=== PATIENT | female | born 1975 | race Caucasian/White ===

== ENCOUNTER 2022-04-03 09:58 | Outpatient (CLI) | payer OTHER, SELFPAY ==
--- OUTSIDE RECORDS SUMMARY | 2022-04-03 10:01 | XMS_ITS | Clinical Summary ---
:1975 Author Organization [facility] [place] [address] Care Team Providers Name Role Phone Pcp, No Primary Care Provider Unavailable Allergies Active Allergy Reactions Severity Noted Date Comments Azithromycin Rash 08/06/2009 Medications Medication Sig Dispensed Refills Start Date End Date Status drospirenone-ethinyl Take 1 tablet by 1 Package 0 10/26/2014 Active estradiol (GIANVI, mouth once 28,) 3-0.02 mg tablet daily. hyoscyamine Place 1 Tablet 30 tablet. 11 10/30/2020 A ctive sublingual (LEVSIN (0.125 mg) under SL) 0.125 mg the tongue every sublIndications: 4 hours if Ulcerative colitis needed. without complications, unspecified location (HC), Bloating balsalazide (COLAZAL) Take 1 Capsule 270 capsule. 3 09/16/2021 Active 750 mg (750 mg) by capsuleIndications: mouth 3 times Ulcerative colitis daily. without complications, unspecified location (HC), Bloating Active Problems Problem Noted Date Ulcerative colitis 08/06/2009 Overview: Colonoscopy 10/2012 normal repeat in 3 ye ars Colonoscopy 03/2018 minimal inflammation , repeat in 5 years Social History Tobacco Use Types Packs/Day Years Used Date Never Smoker Smokeless Tobacco: Never Used Tobacco Cessation: Counseling Given: Yes Alcohol Use Standard Drinks/Week Comments Not Asked 0 (1 standard drink = 0.6 oz pure alcoho l) Sex Assigned at Date Recorded Not on file Obstetrics History Last Filed Vital Signs Vital Sign Reading Time Taken Comments Blood Pressure 111/59 10/30/2020 3:53 PM CDT Pulse 78 10/30/2020 3:53 PM CDT Temperature 37 ??C (98.6 ??F) 09/09/2016 4:05 PM CDT Respiratory Rate 12 07/06/2012 3:32 PM MAT PACKER Oxygen Saturation 100% 10/30/2020 3:53 PM CDT Inhaled Oxygen Concentration - - Weight 55.9 kg (123 lb 3.2 oz) 10/30/2020 3:53 PM CDT Height 161.6 cm (5' 3.62) 09/22/2017 4:00 PM CDT Body Mass Index 21.4 09/22/2017 4:00 PM CDT Plan of Treatment Health Maintenance Due Date Last Done Comments COVID-19 vaccine series (#1) 04/19/1978 Tdap 1988 Depression screening for age 12+ 1989 Hepatitis C screening for age 0510/18/1995 18-79 Tetanus booster 1997 BMI (ht and wt on same day) for 09/22/2018 09/22/2017, 08/29, age 18+ 11/01/2015 Influenza for age 9-49 01/29/2022 Pap test for age 21-65 02/28/2022 02/28/2019, 02/28/2019, 02/09/2014, Additional history exists Colonoscopy through age 75 04/07/2023 04/07/2018, 8, 11/08/2012 Results Not on filefrom Last 3 Months Insurance Payer Benefit Plan / Subscriber ID Effective Dates Phone Addre ss Type Group [facility] [id number] 2019-Present [address] [address] [place] [address] [phone] [id number] (Work) Care Teams Insurance Sales Associate Relationship Specialty Start Date End Date Pcp, No PCP - General 09/05/15 .
--- NOTE | 2022-04-03 10:15 | CRLHL7_ITS ---
For Patients: As a result of the Century Cures Act, medical imaging exams and procedure reports are released immediately into your electronic medical record. You may view this report before your referring provider. If you have questions, please contact your health care provider. BILATERAL SCREENING MAMMOGRAM WITH COMPUTER-AIDED DETECTION AND TOMOSYNTHESIS TECHNIQUE: CC and MLO views were obtained. These mammographic images have been obtained using full-field digital technique. These mammographic images were interpreted with the benefit of computer-aided detection. Breast Tomosynthesis was used in this interpretation. COMPARISON FILM: 03/25/21, 03/07/20, 02/28/19. FINDINGS: The breasts are extremely dense, which lowers the sensitivity of mammography IMPRESSION: There is no radiographic evidence for malignancy. ASSESSMENT: BI-RADS Category 1: Negative RECOMMENDATION: Routine screening mammogram in 1 year. A lay language report of this examination will be provided to the patient. Ang Toledo M.D. Diagnostic Radiologist [email or web address] Transcribed: 2:43 p.m. BONNIE/Dictated by: Ang Toledo MD @ 04/03/2022 1:36:00 PM (Electronically Signed)
== END 2022-04-03 09:59 | disposition home or self-care (01) ==
LOC: MAMMO 09:59
PROVIDERS: Visit Provider Obstetrics & Gynecology
DX: Z12.31 Encounter for screening mammogram for malignant neoplasm of breast (principal); R92.2 Inconclusive mammogram
CPT/HCPCS: 77063; 77067

== ENCOUNTER 2023-04-12 10:25 | Outpatient (CLI) | payer OTHER, SELFPAY ==
--- NOTE | 2023-04-12 10:45 | CRLHL7_ITS ---
For Patients: As a result of the Cures Act, medical imaging exams and procedure reports are released immediately into your electronic medical record. You may view this report before your referring provider. If you have questions, please contact your health care provider. DIGITAL DIAGNOSTIC BILATERAL MAMMOGRAM USING TOMOSYNTHESIS AND COMPUTER-AIDED DETECTION RIGHT BREAST ULTRASOUND CLINICAL HISTORY: RIGHT breast lump. COMPARISON: 04/03/2022, 03/25/2021, 03/07/2020, 02/28/2019. TECHNIQUE: Digital BILATERAL mammogram in six projections. Tomosynthesis and CAD utilized. Real-time ultrasound imaging of RIGHT breast with imaging documentation. Scanning was performed by both the technologist and the radiologist. BREAST COMPOSITION: The breasts are extremely dense which may limit the sensitivity of mammography. FINDINGS: 3D CC/MLO BILATERAL mammogram submitted along with BILATERAL XCCL images. Asymmetric density is present within the lateral RIGHT breast amongst extremely dense breast tissue. No suspicious calcifications bilaterally. Targeted RIGHT breast ultrasound performed at 9 o`clock 3 cm from the nipple. There is a somewhat ill-defined lobular mass with heterogeneous hypoechoic echotexture measuring approximately 3.5 x 2.8 cm. No discernible abnormal lymph nodes in the axilla. IMPRESSION: Suspicious 3.5 cm palpable mass RIGHT breast. RECOMMENDATIONS: Ultrasound-guided core needle biopsy. Results and recommendations discussed with the patient. BI-RADS Category 5: Highly Suggestive of Malignancy A lay language report of this examination will be provided to the patient. Dictated by Ang Toledo MD @ 04/12/2023 12:40:26 PM patoj/Dictated by: Ang Toledo MD @ 04/12/2023 12:40:00 PM (Electronically Signed)
--- NOTE | 2023-04-12 11:15 | CRLHL7_ITS ---
For Patients: As a result of the Cures Act, medical imaging exams and procedure reports are released immediately into your electronic medical record. You may view this report before your referring provider. If you have questions, please contact your health care provider. PLEASE SEE DIGITAL DIAGNOSTIC BILATERAL MAMMOGRAM PERFORMED SAME DAY CRL:mamta oleary/Dictated by: Ang Toledo MD @ 04/12/2023 12:40:00 PM (Electronically Signed)
== END 2023-04-12 10:26 | disposition home or self-care (01) ==
LOC: MAMMO 10:26
PROVIDERS: Visit Provider Obstetrics & Gynecology
DX: N63.10 Unspecified lump in the right breast, unspecified quadrant (principal)
CPT/HCPCS: 76642; 77065; 77066; G0279

== ENCOUNTER 2023-04-15 10:53 | Outpatient (CLI) | payer OTHER, SELFPAY ==
--- NOTE | 2023-04-15 11:15 | CRLHL7_ITS ---
For Patients: As a result of the Century Cures Act, medical imaging exams and procedure reports are released immediately into your electronic medical record. You may view this report before your referring provider. If you have questions, please contact your health care provider. ULTRASOUND-GUIDED BREAST BIOPSY AND POST-BIOPSY DIGITAL MAMMOGRAM FOR BIOPSY MARKER PLACEMENT CLINICAL HISTORY: Suspicious palpable mass. COMPARISON STUDIES: 04/12/2023. TECHNIQUE: Real-time ultrasound with image documentation was used for targeting the breast lesion. Core biopsy specimens were obtained using an automated gun with a 14-gauge biopsy needle. Post-biopsy CC and ML digital mammograms were obtained to document position of the biopsy marker. CONSENT and TIME OUT: The procedure, risks, and alternatives were explained to the patient and a consent was signed. [place] Protocol was followed including pre-procedure verification that relevant information/documentation was available, reviewed and properly matched to the patient; consent accurate and complete; and equipment and supplies available. Time Out was conducted just prior to starting procedure to verify the four required elements: patient identity, correct side/site marked (if applicable), procedure, relevant images/results properly labeled and displayed (if applicable). PROCEDURE: The patient was positioned supine on the ultrasound table. The breast was prepped with ChloraPrep. 6 cc of 1 percent lidocaine used for local anesthesia. Core samples were obtained. A sterile metal biopsy clip was placed percutaneously to norbert the lesion position within the breast. The specimens were placed in 10% formalin and sent to the pathology department. Pressure was held on the biopsy site until all bleeding subsided. The skin incision was closed with Steri-Strips. An ice pack was positioned over the biopsy site. Post-biopsy instructions were reviewed with the patient, and a written copy was given to her. LATERALITY: RIGHT breast. LESION: Large ill-defined hypoechoic and shadowing mass with irregular margins measuring approximately 3.5 cm at 9 o`clock 3 cm from the nipple. SUSPICION FOR MALIGNANCY: High. NUMBER OF SAMPLES: 5. BIOPSY CLIP SHAPE: Oval. PROXIMITY OF CLIP TO TARGET: Within the lesion. IMPRESSION: Ultrasound-guided breast biopsy. When the pathology report is available, an addendum to this report will be made. ACR not applicable Dictated by Ang Toledo MD @ 04/15/2023 11:56:02 AM jj/Dictated by: Ang Toledo MD @ 04/15/2023 11:56:00 AM ADDENDUM: Pathology consistent with invasive lobular carcinoma. This is concordant. Pretreatment breast MRI recommended. Appropriate action recommended. Dictated by: Ang Toledo MD @04/20/2023 9:19:29 AM / CRL:mamta (Electronically Signed)
--- NOTE | 2023-04-15 12:00 | CRLHL7_ITS ---
For Patients: As a result of the Century Cures Act, medical imaging exams and procedure reports are released immediately into your electronic medical record. You may view this report before your referring provider. If you have questions, please contact your health care provider. PLEASE SEE ULTRASOUND-GUIDED RIGHT BREAST BIOPSY PERFORMED SAME DAY CRL:mamta oleary/Dictated by: Ang Toledo MD @ 04/15/2023 11:56:00 AM (Electronically Signed)
== END 2023-04-15 10:54 | disposition home or self-care (01) ==
LOC: US 10:53
PROVIDERS: Visit Provider Obstetrics & Gynecology
DX: N63.10 Unspecified lump in the right breast, unspecified quadrant (principal); C50.911 Malignant neoplasm of unspecified site of right female breast
CPT/HCPCS: 19083; 77065; 88305; 88341; 88342; 88360; 88361; A4648; A4649

== ENCOUNTER 2023-04-26 16:38 | Outpatient (CLI) | payer OTHER, SELFPAY ==
--- NOTE | 2023-04-26 17:00 | CRLHL7_ITS ---
For Patients: As a result of the 21st Century Cures Act, medical imaging exams and procedure reports are released immediately into your electronic medical record. You may view this report before your referring provider. If you have questions, please contact your health care provider. BILATERAL BREAST MRI WITHOUT AND WITH GADOLINIUM, 04/26/2023 CLINICAL HISTORY: 47-year-old female with recently diagnosed RIGHT breast cancer. INDICATION FOR BREAST MRI: Staging of newly diagnosed breast cancer and screening of contralateral breast. Regional lymph nodes will also be assessed. COMPARISON STUDIES: Mammogram 04/12/2023, 04/03/2022, RIGHT breast ultrasound 04/12/2023, RIGHT breast ultrasound-guided biopsy and postprocedure mammogram 04/15/2023. CONTRAST: 11 cc of Dotarem. TECHNIQUE: The patient was positioned prone using a breast coil. Multiple imaging sequences were obtained using 1-1.5 mm thick slices with no gap. The image sequences include T2-weighted STIR in the axial plane, T1-weighted nonfat-saturated gradient echo in the axial plane, pre- and post-contrast T1-weighted FLASH 3D with fat suppression in the axial plane, and T1-weighted FLASH high resolution 3D with fat suppression in the sagittal plane. Image post-processing was performed on a [employer] workstation. Complex 3D rendering including maximum intensity projections (MIPS) and volumetric renderings were obtained to optimize visualization of the extent of pathology and relationship to the nipple, skin, and chest wall. This aids in determining feasibility of breast conservation surgery. Subtraction, multiplanar reconstruction, mean curve determination, and angiogenesis mapping were also performed. The study was technically adequate. FINDINGS: Amount of Fibroglandular Tissue: Heterogeneous fibroglandular tissue. Breast Background Enhancement: Moderate. RIGHT Breast: There is heterogeneous non-mass enhancement in a segmental distribution within the upper outer quadrant of the RIGHT breast spanning clockwise from 8 o`clock to 12 o`clock, anterior to posterior depth and measuring 4.0 x 4.0 x 3.0 cm. Artifact from a biopsy marker clip is seen at the lateral aspect of the enhancement. This is consistent with the site of biopsy-proven malignancy. The extent of which is greater on MRI than was measured on ultrasound. There appears to be overlying skin dimpling. At 11-12 o`clock, posterior depth, approximately 6.5 cm from the nipple there is an irregular mass with irregular margins and heterogeneous internal enhancement which demonstrates fast initial enhancement with washout measuring 1.4 x 0.8 x 1.3 cm. This is located approximately 2 cm superior and medial to the site of biopsy-proven malignancy. LEFT Breast: At 2 o`clock, middle depth, approximately 2.5 cm from the nipple there is an oval, enhancing mass with nonenhancing internal septations measuring 0.6 x 0.5 x 0.7 cm. This demonstrates fast initial enhancement with washout. Lymph Nodes: No suspicious adenopathy. IMPRESSIONS AND RECOMMENDATIONS: RIGHT Breast: 1. Non-mass enhancement in a segmental distribution within the upper outer quadrant, measuring up to 4.0 cm on MRI is consistent with the biopsy-proven malignancy. 2. Mass at 11-12 o`clock, posterior depth, measuring up to 1.4 cm on MRI is suspicious. Recommend targeted ultrasound and ultrasound-guided biopsy. If there is no sonographic correlate an MRI-guided biopsy is recommended. 3. No suspicious adenopathy. LEFT Breast: 1. Mass at 2 o`clock, middle depth, measuring up to 0.7 cm on MRI is suspicious. Recommend targeted ultrasound and ultrasound-guided biopsy. If there is no sonographic correlate an MRI-guided biopsy is recommended. 2. No adenopathy. BI-RADS Category 4: Suspicious Dictated by Gema Kwong MD @ 04/28/2023 4:16:32 PM /Dictated by: Gema Kwong MD @ 04/28/2023 4:16:00 PM (Electronically Signed)
== END 2023-04-26 16:39 | disposition home or self-care (01) ==
LOC: MRI 16:38
PROVIDERS: Visit Provider Surgery
DX: C50.911 Malignant neoplasm of unspecified site of right female breast (principal)
CPT/HCPCS: 77049; A9575

== ENCOUNTER 2023-05-06 11:01 | Outpatient (CLI) | payer OTHER, SELFPAY ==
--- NOTE | 2023-05-06 | CRLHL7_ITS ---
For Patients: As a result of the Century Cures Act, medical imaging exams and procedure reports are released immediately into your electronic medical record. You may view this report before your referring provider. If you have questions, please contact your health care provider. LEFT BREAST ULTRASOUND CLINICAL HISTORY: RIGHT breast cancer. Focal nodular uptake on MRI, LEFT breast. COMPARISON: Breast MRI 04/26/2023. TECHNIQUE: Real-time ultrasound imaging of LEFT breast with imaging documentation. Scanning was performed by both the technologist and the radiologist. FINDINGS: Careful targeted ultrasound of the LEFT breast 2 o`clock 2.5 cm from the nipple performed. A few scattered benign simple anechoic cysts are present within the LEFT breast along with dense fibroglandular tissue. No definitive sonographic abnormality is present within the dense parenchyma to correspond with the MRI finding. IMPRESSION: No sonographic abnormality detected to correspond with the MRI. RECOMMENDATIONS: MRI-guided biopsy LEFT breast. Results and recommendations were discussed with the patient at the time of the exam. BI-RADS Category 4: Suspicious A lay language report of this examination will be provided to the patient. Dictated by Ang Toledo MD @ 05/06/2023 11:56:28 AM jj/Dictated by: Ang Toledo MD @ 05/06/2023 11:56:00 AM (Electronically Signed)
== END 2023-05-06 11:02 | disposition home or self-care (01) ==
LOC: US 11:02
PROVIDERS: Visit Provider Surgery
DX: R92.8 Other abnormal and inconclusive findings on diagnostic imaging of breast (principal); N60.02 Solitary cyst of left breast; C50.911 Malignant neoplasm of unspecified site of right female breast
CPT/HCPCS: 76642

== ENCOUNTER 2023-05-11 13:41 | Outpatient (CLI) | payer OTHER, SELFPAY | END 2023-05-11 13:42 | disposition home or self-care (01) | LOC: NFLDREF 13:42 | PROVIDERS: Visit Provider Family Medicine | DX: Z01.818 Encounter for other preprocedural examination (principal) | CPT/HCPCS: 80048 ==

== ENCOUNTER 2023-05-27 09:27 | Day surgery (SDC) | payer OTHER, SELFPAY ==
[2023-05-27] VITALS (19 sets, daily range): BP systolic 96–128; BP diastolic 50–82; PULSE 71–116; RESP 12–16; TEMP 35.7–36.8; O2SAT 94–100; BMI 22.5
[2023-05-27] MEDS: LACTATED RINGERS 1000 ML 1,000 ML 100 ML IV ×2 (09:45→13:03)
[2023-05-27] MEDS: SODIUM CHLORIDE 0.9 % (FLUSH) 10 ML SYRINGE IVF (09:45)
[2023-05-27 10:02] LABS: Ur HCG Qualitative* Negative (Negative)
--- NOTE | 2023-05-27 11:00 | CRLHL7_ITS ---
For Patients: As a result of the Century Cures Act, medical imaging exams and procedure reports are released immediately into your electronic medical record. You may view this report before your referring provider. If you have questions, please contact your health care provider. SENTINEL LYMPH NODE LOCALIZATION INJECTION CLINICAL HISTORY: Breast cancer LATERALITY: Right breast TECHNIQUE: With the patient supine, the periareolar right breast was cleansed with alcohol. 1cc of 1% buffered lidocaine was injected intradermal in the upper outer periareolar region of the right breast with a 25-gauge needle. Next, 0.98 millicuries of technetium Tc 99m filtered sulfur colloid) in a volume of 1 cc was injected intradermal in the upper outer periareolar breast with a 25-gauge needle. The patient tolerated the procedure well and there were no immediate complications. IMPRESSION: Injection for sentinel lymph node of the right breast. Dictated by Ang Toledo MD @ 05/27/2023 4:42:06 PM (Electronically Signed)
--- NOTE | 2023-05-27 11:46 | W.PM.H&PU ---
History & Physical Update History & Physical Update H&P Reviewed and patient assessed: No changes noted
[2023-05-27] MEDS: CEFAZOLIN 2 GM INJ IVP (12:30)
[2023-05-27] MEDS: ISOSULFAN BLUE 5 ML VIAL INJECTION (12:30)
--- NOTE | 2023-05-27 12:30 | W.PM.NB ---
Nerve Block Nerve Block Time Seen by Provider: 12:19 Date Seen: 05/27/23 Type of block requested by surgeon for post-operative analgesia: intercostal and intercostal add on Side: bilateral Time out performed: Yes Verification of patient name: Yes Verification of date of : Yes Site marking: site marked Name of person performing procedure: Prasanna Continuous monitoring Was continuous monitoring of O2 sat, B/P, monitor car operator, recorded every 15 minutes?: Yes Procedure Checklist: sterile prep, needles and gloves Ultrasound guided. Images saved: Yes Medications given in 5ml increments after negative aspiration: Marcaine %: 0.25 mL: 20 Needle gauge: 20 and Exparel mL: 20 Patient tolerated procedure well: Yes Block Charges Block Charge (with Pro Fee): Intercostal Nerve Block Use of Ultrasound Machine for Block: Yes- US Guidance/pain block
--- NOTE | 2023-05-27 12:32 | W.ANESCHARGE ---
Anesthesia Charges Start Date/Time Anesthesia Start Date: 05/27/23 Anesthesia Start Time: 12:11 Stop Date/Time Anesthesia Stop Date: 05/27/23 Anesthesia Stop Time: 15:53
--- NOTE | 2023-05-27 13:30 | CRLHL7_ITS ---
For Patients: As a result of the Century Cures Act, medical imaging exams and procedure reports are released immediately into your electronic medical record. You may view this report before your referring provider. If you have questions, please contact your health care provider. CLINICAL HISTORY: Breast cancer COMPARISON: 04/12/2023 FINDINGS: Two-views left breast specimen submitted. Entire mastectomy specimen is present. Biopsy clip noted. IMPRESSION: Left mastectomy specimen. ACR not applicable. Dictated by Ang Toledo MD @ 05/28/2023 12:21:11 PM (Electronically Signed)
--- NOTE | 2023-05-27 13:44 | W.ANESCHARGE ---
Anesthesia Charges Start Date/Time Anesthesia Start Date: 05/27/23 Anesthesia Start Time: 12:11 Stop Date/Time Anesthesia Stop Date: 05/27/23 Anesthesia Stop Time: 15:53
--- NOTE | 2023-05-27 14:33 | CRLHL7_ITS ---
For Patients: As a result of the Century Cures Act, medical imaging exams and procedure reports are released immediately into your electronic medical record. You may view this report before your referring provider. If you have questions, please contact your health care provider. CLINICAL HISTORY: Breast cancer COMPARISON: 04/12/2023 FINDINGS: Two views right mastectomy specimen submitted. Biopsy clip is present. IMPRESSION: Right mastectomy specimen films. Dictated by Ang Toledo MD @ 05/28/2023 12:22:44 PM (Electronically Signed)
[2023-05-27] MEDS: BUPIVACAINE 0.25% 30 ML INJECTION (15:35)
--- NOTE | 2023-05-27 15:56 | P.GSOP_ITS ---
Operative Note Date of procedure: 05/27/23 Pre-op diagnosis: 1. Right breast invasive lobular carcinoma 3.5 x 2.8 cm grade 1 of 3 with no angiolymphatic invasion, ER/pr positive and HER2 negative. 2. Desire for prophylactic left mastectomy. Post-op diagnosis: Same Type of Procedure: 1. Left prophylactic mastectomy. 2. Right therapeutic mastectomy. 3. Right sentinel lymph node biopsy. Indications: 47-year-old female was seen in clinic with a new diagnosis of right breast invasive lobular carcinoma. Patient noticed a lump in her breast a few months prior to her presentation. When she brought up to her primary care doctor, a mammogram and ultrasound was obtained that showed an irregular mass in the right breast measuring 3.5 x 2.8 cm at 9:00 3 cm from the nipple. Biopsy of this mass proved this to be invasive lobular carcinoma, grade 1 of 3 with no angiolymphatic invasion and no associated LCIS. This was ER/AL positive and HER2 negative. On clinical exam patient med no lymphadenopathy. Her right breast mass was palpable and measured approximately 3 x 5 cm. This was close to the right areola. Bilateral breast tissue was dense but no other masses were palpable. Bilateral nipples were inverted. Patient underwent bilateral breast MRI that showed a biopsy-proven right breast carcinoma measuring 4 x 4 cm. There was an additional irregular mass with irregular margins at 11-12 o'clock posteriorly that was measuring 1.4 x 1.3 cm. In the left breast at 2:00 there was an oval enhancing mass with nonenhancing internal septations measuring 0.6 x 0.7 cm. Since patient desired to undergo bilateral mastectomy, no additional biopsy of the right breast mass was obtained. However, patient was referred for MRI guided left breast mass biopsy. This biopsy returned as fibrocystic change with no evidence of malignancy. Bilateral MRI also did not show any suspicious lymphadenopathy. Given patient's history and the size of her mass, patient elected to undergo bilateral mastectomy with right sentinel lymph node biopsy. The procedure was discussed in detail. The risks associated procedure including infection, bleeding, lymphedema, and the need for additional procedures were all discussed with the patient, and she agreed to proceed. Procedure Description: After discussing the risks and benefits of the procedure, the patient signed informed consent.? The operative site was marked and the patient was brought to the operating room and placed on the operating table in supine position.? Care was taken to pad the patient's pressure points.?? The patient was then intubated by anesthesia.?? The operative site was then prepped and draped in the usual sterile fashion.? A time-out was then performed. I first proceeded with left?mastectomy. An elliptical horizontal left skin incision was made around the nipple-areolar complex using a scalpel.? Dermis was divided with cautery. Oseas retractors were used for retraction throughout the case.? Skin flaps were developed circumferentially in a relatively avascular placed between subcutaneous fat and breast tissue using manual traction between the skin flaps and breast tissue.? Dissection was performed to just below the clavicle superiorly, to the lateral border of pectoralis major muscle laterally, to the sternal border medially, and to the inframammary fold inferiorly.? This was all done with cautery.? Hemostasis throughout the case was achieved with cautery and Vicryl ties and stick ties. ? When the breast tissue was dissected circumferentially, it was then removed in a medial to lateral fashion from Pectoralis using electrocautery. The pectoralis major fascia was included with the specimen. The specimen was labeled for orientation with a single stitch at 12:00. Near the left axilla adjacent to the dermis there was thickened inflamed tissue of unknown etiology. At least half of this tissue was removed with the breast specimen. Was not able to remove the rest of the tissue because it was densely adherent to the dermis. The breast was then sent to pathology for gross examination. I asked the pathologist to look at the inflamed tissue in the axilla that was marked with a double stitch. Frozen section showed this to be fibrocystic breast tissue. Mastectomy cavity was irrigated with normal saline.? Hemostasis was achieved with cautery.? A 15F Mj drain was placed inferior and lateral to the breast through a small stab incision and secured in place with nylon suture. The edges of surgical incision were re-approximated using interrupted 2-0 and 3-0 Vicryl sutures.? The skin was closed with a running subcuticular 4-0 Monocryl stitch. I then proceeded on the right side. An elliptical horizontal right skin incision was made around the nipple-areolar complex using a scalpel.? Dermis was divided with cautery.? Oseas retractors were used for retraction throughout the case.? Skin flaps were developed circumferentially in a relatively avascular placed between subcutaneous fat and breast tissue using manual traction between the skin flaps and breast tissue.? Dissection was performed to just below the clavicle superiorly, to the lateral border of pectoralis major muscle laterally, to the sternal border medially, and to the inframammary fold inferiorly.? This was all done with cautery.? Hemostasis throughout the case was achieved with cautery and Vicryl ties. ? When the breast tissue was mobilized circumferentially, I proceeded with a right sentinel lymph node biopsy. In same-day surgery about 1 hour prior to bringing patient to the operating room, radioactive tracer was personally injected by me near the right nipple. When the patient was intubated in the operating room, 4 ml (milliliters) of Lymphazurin blue was personally injected by me near the right nipple for sentinel lymph node identification. Now through the right mastectomy incision, a Elia counter was brought onto the field in the right axilla deltopectoral fascia was divided with cautery. Guided by the radioactive signal, I was able to find a green lymph node. This was excised with cautery. This had a count of [id number]. This was sent to pathology as the sentinel node #1 for permanent section. Axillary bhavya tissue was examined again and additional signal was identified. Searching for this second sentinel lymph node 2 small lymph nodes were excised with a count of mid 100s which was not adequate enough for sentinel node designation. There was also slightly enlarged but soft lymph node palpated and that was excised with cautery. This did not have any radioactive signal. These 2 small nodes and enlarged node were all sent to pathology as additional bhavya tissue. I was finally able to identify a second sentinel lymph node with a count of 1268 and that was excised with cautery. The Chicken counter was then brought into the axilla and no additional significant signal was identified. Hemostasis was achieved with cautery. Between the search for the sentinel lymph nodes, the right breast was taken off the pectoralis muscle. This was done with cautery. The pectoralis major fascia was included in the specimen. The right breast was labeled for orientation with a single stitch at 12:00 and sent to pathology for margins.? Pathology evaluated the margins and the closest margin was anterior and superior and was 2 mm. The right Mastectomy cavity was irrigated with normal saline.? Hemostasis was achieved with cautery.? A 15F Mj drain was placed inferior and lateral to the breast through a small stab incision and secured in place with nylon suture. The edges of surgical incision were re-approximated using interrupted 2-0 and 3-0 Vicryl sutures.? The skin was closed with a running subcuticular 4-0 Monocryl stitch. Steri strips, sterile fluffs, and ABD pad were applied over bilateral mastectomy incision.? A drain sponges was placed under the drains.? The chest was wrapped with an Bennett wrap.? All counts were correct at the end of the case. The patient tolerated this procedure well and was transferred to the?PACU in stable condition. Findings: Two sentinel lymph nodes were removed from the right axilla and at least 3 additional lymph nodes were removed that were not considered sentinel lymph nodes. Anesthesia: GETA Surgeon: Penelope Lee MD Estimated blood loss (mL): 50 Additional Specimen Information: 1. Left breast. 2. Right breast. 3. [place] lymph node #1. 4. [place] lymph node #2. 5. Additional right axillary bhavya tissue. Condition: stable Disposition: PACU [place] Node Biopsy for Breast Cancer Operation Performed with Curative Intent: Yes Tracers used to Identify sentinel nodes in the upfront surgery (non-neoadjuvant) setting: Dye and Radioactive Tracer All nodes (colored or non-colored) present at the end of a dye filled lymphatic channel were removed: Yes All significantly radioactive nodes were removed: Yes All palpably suspicious nodes were removed: Yes Biopsy proven positive nodes marked with clips prior to chemotherapy were identified and removed: Not Applicable
--- NOTE | 2023-05-27 16:21 | SUR.PHASEI ---
patient meets pacu d/c criteria
[2023-05-27] MEDS: HYDROmorphone 0.5 mg/0.5 ml inj IVP (17:58)
--- NOTE | 2023-05-27 19:24 | PC.NURSE ---
RECEIVED DILAUDID FOR PAIN WITH RELIEF. DENIES NAUSEA. BLADIMIR WRAP TO CHEST CDI. CLAUDIA DRAIN x2. IN ROOM AND WATCHED STAFF EMPTY CLAUDIA AND DISCUSSED CLAUDIA CARE.
[2023-05-27] MEDS: ONDANSETRON 2 MG/ML inj IVP (19:59)
[2023-05-27] MEDS: LORazepam 2 MG/ML inj IVP (22:51)
--- NOTE | 2023-05-27 23:41 | PC.NURSE ---
End of Shift: Patient pleasant and cooperative. Afebrile. Dressing to chest C/D/I. CLAUDIA drains emptied q2h of bloody drainage. Rating pain 2/10 and denies need for PRN pain medication. Up to bathroom with SBA. Patient had a 100 mL emesis x1, PRN Zofran given with relief. Patient requested to take home medication, updated MD and OK to take home dose of Balsalazide.
[2023-05-28] MEDS: HYDROCODONE-ACETAMIN 5-325 MG 1 TAB PO ×2 (02:16→09:10)
[2023-05-28 03:00] VITALS: BP 102/67; PULSE 83; RESP 16; TEMP 36.8; O2SAT 99
--- NOTE | 2023-05-28 06:45 | PC.NURSE ---
Pt pleasant and cooperative. VSS Drsg is CDI no shadowing coming though. L CLAUDIA put out 10cc, R CLAUDIA put out 10cc of bloody drainage. Pt is up with standby assuist to Bathroom. Voiding without difficulty. Urine remains blue at this time. Pain last a 6/10 and Hydrocodone/tylenol given at 0600.
[2023-05-28 07:00] VITALS: BP 107/73; PULSE 94; RESP 20; TEMP 36.7; O2SAT 99
--- NOTE | 2023-05-28 09:54 | PM.DS1 ---
DS: Providers Provider Date Seen: 05/28/23 Primary care physician: Not a Local Provider Attending Physician on discharge: Penelope Lee MD DS: Summary Hospital Course Hospital Course: Patient was admitted to the hospital after she underwent bilateral mastectomy and right sentinel lymph node biopsy. Patient did well overnight. Her drain output was minimal but bloody. She tolerated some regular diet. She urinated. Her pain was controlled with p.o. medication. Time Spent with Patient Time attestation: Total time spent providing and/or coordinating discharge services: Exam Narrative: Exam Narrative: Chest: Compression dressing was on wrapped because it was somewhat tight. Bilateral mastectomy incisions are with clean Steri so and no sign of expanding hematoma. The chest was wrapped again with an Bennett wrap. Bilateral drains were stripped and had minimal amount of bloody serosanguineous drainage. Const: Vital Signs, click to edit/add: Vital Signs - 24 hr 05/27/23 15:50 05/27/23 15:55 05/27/23 16:00 Temperature 97.4 F L Pulse Rate 82 76 80 Pulse Rate [Pulse Oximeter] Respiratory Rate 16 16 14 Blood Pressure 97/57 L 96/57 L 100/60 Blood Pressure [Le ft Arm] Pulse Oximetry 98 97 94 Oxygen Delivery Me thod Room Air 05/27/23 16:05 05/27/23 16:10 05/27/23 16:15 Temperature Pulse Rate 82 77 71 Pulse Rate [Pulse Oximeter] Respiratory Rate 12 12 14 Blood Pressure 105/66 104/67 106/66 Blood Pressure [Le ft Arm] Pulse Oximetry 98 100 100 Oxygen Delivery Me thod 05/27/23 16:20 05/27/23 16:30 05/27/23 16:45 Temperature 97.3 F L 96.3 F L 96.3 F L Pulse Rate 74 77 Pulse Rate [Pulse Oximeter] 76 Respiratory Rate 14 16 16 Blood Pressure 101/62 Blood Pressure [Le ft Arm] 110/71 109/68 Pulse Oximetry 100 100 Oxygen Delivery Me thod Room Air Room Air 05/27/23 17:00 05/27/23 17:15 05/27/23 17:30 Temperature 96.3 F L 97.7 F Pulse Rate Pulse Rate [Pulse Oximeter] 72 75 78 Respiratory Rate 14 16 16 Blood Pressure Blood Pressure [Le ft Arm] 109/69 110/69 110/65 Pulse Oximetry 100 100 100 Oxygen Delivery Me thod Room Air Room Air Room Air 05/27/23 18:00 05/27/23 18:30 05/27/23 19:30 Temperature 97.5 F L 98.2 F 97.6 F Pulse Rate Pulse Rate [Pulse Oximeter] 81 87 93 Respiratory Rate 16 16 16 Blood Pressure Blood Pressure [Le ft Arm] 104/65 105/56 L 103/50 L Pulse Oximetry 99 98 99 Oxygen Delivery Me thod Room Air Room Air Room Air 05/27/23 20:30 05/27/23 21:30 05/27/23 22:37 Temperature 98.3 F 97.7 F Pulse Rate Pulse Rate [Pulse Oximeter] 87 92 83 Respiratory Rate 16 16 16 Blood Pressure Blood Pressure [Le ft Arm] 104/61 97/54 L 102/62 Pulse Oximetry 99 100 100 Oxygen Delivery Me thod Room Air Room Air Room Air 05/28/23 03:00 05/28/23 07:00 Temperature 98.2 F 98.1 F Pulse Rate Pulse Rate [Pulse Oximeter] 83 94 Respiratory Rate 16 20 Blood Pressure Blood Pressure [Le ft Arm] 102/67 107/73 Pulse Oximetry 99 99 Oxygen Delivery Me thod Room Air Room Air DS: Data Data Completed and Pending Labs on day of discharge: Labs from last 24 hours 05/27/23 Unknown Urine HCG, Qual Negative Discharge Plan Discharge Disposition: Home, Self-Care Discharging Surgeon: Penelope Lee Follow-Up Appointment: 1 week and 2weeks( made) [facility] Prescriptions: New hydrocodone-acetaminophen 5-325 mg tablet 1 - 2 tab PO Q6H PRN (Reason: pain) Qty: 25 0RF Continued balsalazide 750 mg capsule 750 mg PO BID spironolactone 25 mg tablet 75 mg PO QDAY lorazepam [Ativan] 1 mg tablet 0.5 - 1 mg PO BID PRN (Reason: anxiety) Qty: 14 0RF Activity Level: No strenuous activity Activity Detail: Avoid raising your right arm above shoulder level or reaching above shoulder level. Continue wearing compression dressing over bilateral mastectomy incisions. Change dressing daily and do drain cares daily. Strip and empty drains at least 3 times a day or if clots are in the drain tubing, you can strip the drains more frequently. Discharge Diet: Regular Patient Instructions: Surgical Site Infections (DC), Deep Sedation (DC), Post-Operative Instructions: Breast Surgery Forms: Work/School Release Follow-up: Penelope Lee MD [Staff Physician] - Discharge Orders: Discharge Order (Routine); Ordered 05/28/23 Ordered By: Penelope Lee
== END 2023-05-28 10:58 | disposition home or self-care (01) ==
LOC: OR 09:28 → MEDSURG 09:30
PROVIDERS: Anesthesiology; Visit Provider Surgery
PROC: (CPT 19303; principal; 2023-05-27 12:00)
PROC: (CPT 19303; 2023-05-27 12:00)
DX: C50.411 Malignant neoplasm of upper-outer quadrant of right female breast (principal); Z17.0 Estrogen receptor positive status [ER+]; N60.12 Diffuse cystic mastopathy of left breast; G89.18 Other acute postprocedural pain
CPT/HCPCS: 19303; 38525; 00404; 01610; 38792; 64420; 64421; 76942; 81025; A9270; A9541; J0330; J0665; J0690; J1100; J1170; J2060; J2250; J2371; J2405; J2704; J3010; J7120

== ENCOUNTER 2023-06-17 09:06 | Outpatient (CLI) | payer OTHER, SELFPAY ==
--- OUTSIDE RECORDS SUMMARY | 2023-06-17 09:16 | XMS_ITS | Clinical Summary ---
Author Name Unknown Organization [employer] Address [place], [place] [address] Care Team Providers Care Publishing Agent Name Role Phone Pcp, No Primary Care Provider Unavailabl e Allergies Active Allergy Reactions Criticality Noted Date Comments Azithromycin Rash 08/06/2009 Medications Medication Sig Dispensed Refills Start Date End Date Status drospirenone-ethin yl estradiol (GIANVI, 28,) 3-0.02 mg tablet Take 1 tablet by mouth once daily. 1 Package 0 10/26/2014 Active hyoscyamine sublingual (LEVSIN SL) 0.125 mg sublIndications:Ul cerative colitis without complications, unspecified location (HC),Bloating Place 1 Tablet (0.125 mg) under the tongue every 4 hours if needed. 30 tablet. 11 10/30/2020 Active spironolactone (ALDACTONE) 25 mg tablet 0 08/26/2022 Active balsalazide (COLAZAL) 750 mg capsuleIndications :Ulcerative colitis without complications, unspecified location (HC),Bloating,Fati paolo, unspecified type,Family history of celiac disease Take 1 Capsule (750 mg) by mouth three times daily. 270 Capsule 3 08/27/2022 Active polyethylene glycol-electrolyte (GOLYTELY) 236-22.74-6.74 -5.86 gram suspensionIndicati ons:Encounter for screening colonoscopy Drink 2 liters (half the bottle) the day before colonoscopy and 2 liters (remaining prep) 6 hours prior to colonoscopy appointment. 4000 mL 0 04/09/2023 Active Active Problems Problem Noted Date Diagnosed Date Ulcerative colitis 08/06/2009 Overview: Colonoscopy 10/2012 normal repeat in 3 years Colonoscopy 03/2018 minimal inflammation, repeat in 5 years Encounters Date Type Department Care Team Description 05/27/2023 Lab Requisition [facility] [phone] Penelope [place] MD 05/25/2023 Telephone [facility] [address] [address] Savita Anna RN breast MRI biopsy results 05/21/2023 10:00 AM TIRE FINISHER - 05/21/2023 11:59 PM TIRE FINISHER Hospital Encounter [facility] [address] [address] Penelope [place] MD Breast cancer (HC) 05/21/2023 8:10 AM TIRE FINISHER - 05/21/2023 9:59 AM TIRE FINISHER Hospital Encounter [facility] [address] [place] [address] Penelope [place] MD Breast cancer (HC) 05/21/2023 Travel 05/10/2023 Telephone [facility] [address], [place] [address] Katie Gauthier MS, CGC Results 04/27/2023 4:00 PM TIRE FINISHER Orders Only [address] [address] Lab (/) 04/27/2023 9:00 AM TIRE FINISHER Telemedicine [facility] [address] [place] [address] Katie Gauthier, MS, CGC Counseling (Genetic counseling/ ) 04/27/2023 Travel 04/26/2023 Telephone [facility] [address], [place] [address] Zeyad Patiño Cancer genetics 04/25/2023 Travel 04/23/2023 Transcribe Orders [facility] [address], [place] [address] Penelope [place] MD 04/15/2023 Lab Requisition [facility] [phone] Unknown, Doctor 04/09/2023 Telephone [facility] [address] [place] [address] Sahil Saeed MD Screening from Last 3 Months Social History Tobacco Use Types Packs/Day Years Used Date Smoking Tobacco: Never Smokeless Tobacco: Never Tobacco Cessation:Counseling Given: Yes Alcohol Use Standard Drinks/Week Comments Not Asked 0 (1 standard drink = 0.6 oz pur e alcohol) Social Connections Answer Date Recorded Frequency of Communication with Friends and Fami ly Not on file 05/31/2021 Financial Resource Strain Answer Date R ecorded Difficulty of Paying Living Expenses Not on file 05/31/2021 Difficulty of Paying Living Expenses Not on file 05/31/2021 Sex and Gender Information Value Date Recorded Sex Assigned at Not on file Gender Identity Not on file Sexual Orientation Not on file Obstetrics History Last Filed Vital Signs Vital Sign Reading Time Taken Comments Blood Pressure 112/70 08/27/2022 3:58 PM CDT Pulse 83 08/27/2022 3:58 PM CDT Temperature 37 ??C (98.6 ??F) 09/09/2016 4:05 PM CDT Respiratory Rate 12 07/06/2012 3:32 PM TIRE FINISHER Oxygen Saturation 97% 08/27/2022 3:58 PM CDT Inhaled Oxygen Concentration - - Weight 57.6 kg (126 lb 14.4 oz) 08/27/2022 3:58 PM CDT Height 161.6 cm (5' 3.62) 09/22/2017 4:00 PM CD T Body Mass Index 22.04 09/22/2017 4:00 PM CDT Plan of Treatment Upcoming Encounters Date Type Department Care Team (Late st Contact Info) Description 07/19/2023 9:15 AM TIRE FINISHER Procedure Only [facility] [address] [place] [phone] Sahil Saeed MD [address] [place] [address] Health Maintenance Due Date Last Done Comments Pneumococcal series for age 6-64 (1 of 2 - PCV) 10/18/1983 Tdap 1988 Depression screening for age 12+ 1989 HIV for age 15-65 1992 Hepatitis C screening for ag e 18-79 10/18/1995 Tetanus booster 1997 BMI (ht and wt on same day) for age 18+ 09/22/2018 09/22/2017, 09/09/2016, 11/01/2015 COVID-19 vaccine series (3 - Moderna risk series) 08/21/2021 07/24/2021, 06/30/2021 Pap test for age 21-65 02/28/2022 9, 02/28/2019, 02/09/2014, Additional history exists Lipids for age 45-75 2022 Mammogram for age 45-75 2022 Influenza for age 9-49 01/29/2023 Colonoscopy through age 75 04/07/202304/07, 04/07/2018, 11/08/2012 Procedures Procedure Name Priority Date/Time Associated Diagnosis Comments MSO AP SEND-OUT Routine 05/27/2023 3:21 PM TIRE FINISHER LAB TRACKING EVENT Routine 05/27/2023 2: 54 PM TIRE FINISHER PATH TISSUE EXAM Routine 05/27/2023 1:22 PM TIRE FINISHER XR MAMMO POST CLIP PLCMT LT MAYDA 05/21/2023 11:40 AM TIRE FINISHER Breast cancer (HC) MR BIOPSY BREAST NEEDLE W NUHA W GUIDE LEFT [facility] 05/21/2023 11:24 AM TIRE FINISHER Breast cancer (HC) PATH TISSUE EXAM Today 05/21/2023 11:1 0 AM TIRE FINISHER CANCER GENETIC SEND OUT Routine 04/27/2023 Malignant neoplasm of female breast, unspecified estrogen receptor status, unspecified laterality, unspecified site of breast (HC) LAB TRACKING EVENT Routine 04/15/2023 11 :30 AM TIRE FINISHER PATH BREAST CORE BIOPSY Routine 04/15/2023 11:30 AM TIRE FINISHER from Last 3 Months Results * MSO AP SEND-OUT (05/27/2023 3:21 PM TIRE FINISHER) Other (Right Breast) 05/27/2023 3:21 PM TIRE FINISHER 06/03/2023 1:11 PM TIRE FINISHER Penelope [place] MD LABORATORY Performing Organization Address [facility] Co de Phone Number [facility] [address] [place] [phone], * LAB TRACKING EVENT (05/27/2023 2:54 PM TIRE FINISHER) Only the most recent of2 resultswithin the time period is included. Other (Other) Client Collect / Unknown 05/27/2023 2:54 PM TIRE FINISHER 05/28/2023 10:37 AM TIRE FINISHER Penelope [place] MD LAB BILL ONLY Performing Organization Address [facility] de Phone Number [facility] [address] [place] [id number], [place] * PATH TISSUE EXAM (05/27/2023 1:22 PM TIRE FINISHER) Only the most recent of2 resultswithin the time period is included. Case Report Pathology Report ?Case: [id number] ? Authorizing Provider: ??Penelope [place] MD ?Collected: ? 05/27/2023 1322 ? Ordering Location: ? [facility] ?Received: ?05/27/2023 1440 ? Pathologist: ? Ang Reis MD ? Specimens: ?? A) - Left Breast, Single stitch 12:00, double stitch thickened lesion in left ? axilla/frozen ? B) - Right Breast, stitch at 12:00 ? C) - Right Axillary [place] Lymph Node 1, [place] node number 1 ? D) - Right Axillary [place] Lymph Node 2, [place] node number 2 ? E) - Right Axillary Lymph Node, Right additional bhavya tissue ? 06/10/2023 12:32 PM TIRE FINISHER [facility] ENTRAL LABORATORY Amendment 06/09/2023 - Amendment issued to incorporate ancillary ER studies. 06/10/2023-The tissue was submitted to [facility] for Oncotype DX for Breast Cancer testing. ??Please see attached scanned report. 06/10/2023 12:32 PM TIRE FINISHER [facility] Final Diagnosis A) LEFT BREAST, ORIENTED PROPHYLACTIC MASTECTOMY WITH MARGIN ASSESSMENT: 1. Ductal carcinoma in situ (DCIS), nuclear grade 1, cribriform / papillary types ?a. Size: 2 mm ?b. All margins negative for DCIS, > 5 mm from all margins ?c. Core biopsy site is adjacent to DCIS 2. Breast Ancillary Testing: ?a. Estrogen receptor: Positive (91-100%, strong staining by manual morphometry) 3. Background breast tissue with foci of atypical lobular hyperplasia (ALH), proliferative fibrocystic changes, secretory changes and intraductal papilloma (2 mm) 4. Skin and nipple with no histopathologic abnormality 5. Negative for invasive carcinoma 6. See comment B) RIGHT BREAST, ORIENTED MASTECTOMY WITH MARGIN ASSESSMENT: 1. Invasive lobular carcinoma, Ashutosh grade I of III ?a. Size: at least 95 mm ?b. Core biopsy site associated with carcinoma 2. Anterior-inferior margin focally positive for invasive carcinoma 3. Breast Ancillary Testing: Performed on prior case ([id number]) ?a. Hormone Receptors: ?Estrogen receptor: Positive (95%, strong staining) ?Progesterone receptor: Positive (34%, moderate staining) ?b. HER2 by IHC: Negative (0 by manual morphometry) ?c. Ki67: < 1% 4. Background breast tissue with proliferative fibrocystic changes and foci of atypical lobular hyperplasia (ALH) 5. Nipple with stromal involvement by invasive lobular carcinoma 6. Skin with no histopathologic abnormality 7. See comment and synoptic report for additional details. C) RIGHT AXILLARY SENTINEL LYMPH NODE, #1, EXCISION: 1. One lymph node, negative for metastatic carcinoma (0/1) D) RIGHT AXILLARY SENTINEL LYMPH NODE, #2, EXCISION: 1. One lymph node, negative for metastatic carcinoma (0/1) E) RIGHT AXILLARY LYMPH NODE, NON-SENTINEL, EXCISION: 1. Four lymph nodes, all negative for metastatic carcinoma (0/4) 06/10/2023 12:32 PM [facility] ENTRAL LABORATORY Amendment electronically signed by Ang Reis MD on 06/10/2023 at 12:31 PM Amendment electronically signed by Ang Reis MD on 06/09/2023 at 9:[address] Ashleigh Casarez has reviewed slide A4 and concurs with DCIS adjacent to the biopsy site in the left breast. The stroma of the right nipple is involved by invasive lobular carcinoma. ??There is no involvement of the dermis or epidermis, and there is no Paget's disease seen. ??This involvement of the connective tissue (breast tissue) in the nipple is not associated with any changes in staging (pT3 tumor based upon size). 06/10/2023 12:32 PM TIRE FINISHER [facility] Clinical Information Patient with recently diagnosed invasive lobular carcinoma (see right breast core biopsy [id number] from 04/15/23). 06/10/2023 12:32 PM [facility] ENTRMD LABORATORY Gross Description A) Received fresh, labeled with the patient's name and left breast; single stitch 12:00, double stitch thickened lesion in left axilla-frozen, is a 363 gram, 18 (M-L) x 18 (S-I) x 3.5 (A-P) cm oriented simple breast mastectomy specimen without attached axillary contents. There is an attached 9.2 x 3.3 cm portion of skin with a 1 cm diameter flat nipple and 3.5 cm surrounding areola. No skin scars or lesions are identified. The specimen is inked: Anterior-superior : Blue Anterior-inferior : Red Posterior: Black There is a double stitch secured to the lateral edge of the breast, upper outer quadrant, associated with dense firm fibrous villavicencio-white tissue. ??Collections Clerk sections straddling the double suture (2 pieces) is submitted on 1 block (A1) for frozen microscopy. There is an ill-defined hemorrhagic biopsy site in the upper outer quadrant, 1-2:00, measuring 1.1 x 1 x 1 cm, associated with a coil clip, hemorrhage and dense fibrous tissue. A discrete mass is not identified. The biopsy site focally opens up along the anterior superior soft tissue margin and is less than 0.1 cm from the inked resection margin. The remaining cut surfaces consist of 30% yellow, lobulated adipose tissue and 70% fibrous dense villavicencio-white focally vaguely nodular tissue. No lymph nodes are identified grossly. Collections Clerk sections are submitted in 14 cassettes: 1. ??Frozen section residue 2. ??Nipple 3-4. Biopsy site, 1-2:00, upper outer quadrant ? 3. Includes anterior superior soft tissue margin 5-6. Dense fibrous tissue adjacent to frozen section, lateral edge of breast, upper outer quadrant ? 5. Includes anterior superior soft tissue margin 7-8. ??Random upper inner quadrant (no margin) 9-10. ??Random upper outer quadrant (no margin) 11-12. Random lower inner quadrant (no margin) 13-14. Random lower outer quadrant (no margin) Time removed from patient: 1321 Time placed in formalin: 1427 Date removed and placed in formalin: 05/27/2023 Please note: Cold ischemic time is > 60 minutes. The specimen was fixed in formalin for a minimum of 6 hours and not longer than 72 hours. B) Received fresh, labeled with the patient's name and right breast, stitch 12:00, is a 379 gram, 18 (M-L) x 16 (S-I) x 3.5 (A-P) cm oriented simple breast mastectomy specimen without attached axillary contents. There is an attached 11 x 3.5 cm portion of skin with a 1 cm diameter inverted nipple and 3 cm surrounding areola. No skin scars or lesions are identified. The specimen is inked: Anterior-superior : Blue Anterior-inferior : Red Posterior: Black There is an ill-defined, solid and firm portillo-villavicencio tumor with ill-defined nodularity involving the lateral half of the breast, measuring up to 9.5 (ML) x 9.5 (SI) x 3 (AP). The tumor is associated with a ring-shaped biopsy clip (at 9:00, 3 cm from nipple), and is located 0.2 cm from the nearest anterior superior soft tissue margin (inked blue), 0.2 cm from the anterior inferior soft tissue margin (inked red), and 0.4 cm from the intact smooth movable posterior margin (inked black). Tumor grossly involves the inverted nipple. The remaining cut surfaces consist of 30% yellow, lobulated adipose tissue and 70% fibrous dense villavicencio-white tissue. No lymph nodes are identified grossly. Collections Clerk sections are submitted in 21 cassettes: 1. ??Inverted nipple, suspicious for tumor involvement (no margin) 2. ??Fibrous tissue, medial to tumor 3-11. Tumor, sequential medial to lateral spanning 9.5 cm (no margin) ?7. ??Biopsy clip site 12. ??Fibrous tissue lateral to tumor 13. ??Posterior margin nearest tumor 14-15. ??Anterior inferior soft tissue margin nearest tumor 16-17. ??Anterior superior soft tissue margin nearest tumor 18. ??Fibrous vaguely nodular tissue, upper outer quadrant, 2 cm lateral to tumor, Including anterior superior soft tissue margin 19. ??Fibrous tissue, random upper inner quadrant (no margin) 20. ??Fibrous tissue, random lower outer quadrant (no margin) 21. ??Random lower inner quadrant (no margin) Time removed from patient: 1443 Time placed in formalin: 1521 Date removed and placed in formalin: 05/27/2023 Cold ischemic time < 60 minutes. The specimen was fixed in formalin for a minimum of 6 hours and not longer than 72 hours. C) Received fresh, labeled with the patient's name and right sentinel node number 1, is a 2.6 x 1.9 x 1.1 cm portion of adipose containing a 2 x 1.8 x 0.8 cm villavicencio lymph node with focal injected dye. A biopsy clip is not grossly identified within the specimen. The lymph node is quadrisected and the entire specimen is submitted in 4 cassettes. Time removed from patient: 1421 Time placed in formalin: 1516 Date removed and placed in formalin: 05/27/2023 Cold ischemic time < 60 minutes. The specimen was fixed in formalin for a minimum of 6 hours and not longer than 72 hours. D) Received fresh, labeled with the patient's name and right sentinel node number 2, is a 2.1 x 1 x 1 cm portion of adipose containing a 1.8 x 0.9 x 0.8 villavicencio lymph node. A biopsy clip is not grossly identified within the specimen. The lymph node is quadrisected and the entire specimen is submitted in 2 cassettes. Time removed from patient: 1513 Time placed in formalin: 1516 Date removed and placed in formalin: 05/27/2023 Cold ischemic time < 60 minutes. The specimen was fixed in formalin for a minimum of 6 hours and not longer than 72 hours. E) Received fresh labeled with the patient's name and right additional bhavya tissue, is a 3.8 x 3.5 x 1.4 cm aggregate of fibrofatty tissue. Upon dissection, there are 4 rubbery villavicencio lymph nodes, ranging 0.6-3.1 cm. ??All lymph nodes are submitted in 7 cassettes: 1. ??1 bisected lymph node 2. ??1 bisected lymph node 3. ??1 bisected lymph node 4-7. 1 lymph node, sectioned Time removed from patient: 1516 Time placed in formalin: 1516 Date removed and placed in formalin: 05/27/2023 Cold ischemic time < 60 minutes. The specimen was fixed in formalin for a minimum of 6 hours and not longer than 72 hours. LDW 05/28/2023 ?? 06/10/2023 12:32 PM [facility] ENTRAL LABORAT[facility] Intraoperative Consultation A) LEFT BREAST, INTRAOPERATIVE CONSULTATION WITH FROZEN SECTION(S): [Number of frozen sections prepared: 1 block] 1. Benign breast tissue present at posterior margin 2. No atypia, in-situ, or invasive carcinoma identified Nia Salians MD, via telepathology with SIMEON Gonzalez ([facility]) 05/27/2023 2:23 PM B) RIGHT BREAST, MASTECTOMY, INTRAOPERATIVE CONSULTATION (Gross Evaluation Only): 1. Tumor grossly identified 2. Biopsy site change is identified grossly 3. Margins are grossly negative by 2 mm (the closest margins are anterior superior and anterior inferior) 4. The mastectomy specimen is 379 grams Savita Echevarria MD, via telepathology with SIMEON Gonzalez ([facility]) 05/27/2023 3:00 PM Intraoperative consultation, which may have included frozen section preparation, gross specimen examination, and/or cytology touch imprints/smears, was performed by a pathologist during the surgical procedure. ??This testing was performed at: [address] [address] 06/10/2023 12:32 PM [facility] Microscopic Description The final diagnosis is based on microscopic examination of appropriate sections of all specimens. IHC studies (CK AE1/AE3 performed on four blocks) are interpreted as follows: C1... ? Negative, helping to exclude individual cells of metastatic carcinoma in lymph node D2... ? Negative, helping to exclude individual cells of metastatic carcinoma in lymph node B14 & B15... ?Positive, confirming invasive carcinoma and facilitating accurate margin assessment 06/10/2023 12:32 PM TIRE FINISHER [facility]-C ENTRAL LABORATORY SYNOPTIC REPORTING DCIS OF THE BREAST: Resection DCIS OF THE BREAST: RESECTION - A 8th Edition - Protocol posted: 08/20/2021 SPECIMEN ?? Procedure: ?Total mastectomy ?? Specimen Laterality: ?Left TUMOR ?? Tumor Site: ?Clock position ?? : ?2 o'clock Tumor Site: ?Distance from nipple (Centimeters): 2 cm Histologic Type: ?Ductal carcinoma in situ Size (Extent) of DCIS: ?Estimated size (extent) of DCIS is at least (Millimeters): 2 mm Architectural Patterns: ?Cribriform Architectural Patterns: ?Papillary Nuclear Grade: ?Grade I (low) Necrosis: ?Not identified MARGINS Margin Status: ?All margins negative for DCIS ?? Distance from DCIS to Closest Margin: ?Greater than: 5 mm ?? Closest Margin(s) to DCIS: ?All margins negative for DCIS by at least 5 mm. REGIONAL LYMPH NODES Regional Lymph Node Status: ?Not applicable (no regional lymph nodes submitted or found) PATHOLOGIC STAGE CLASSIFICATION (pTNM, AJCC 8th Edition) ?? Reporting of pT, pN, and (when applicable) pM categories is based on information available to the pathologist at the time the report is issued. As per the AJCC (Chapter 1, 8th Ed.) it is the managing physician? s responsibility to establish the final pathologic stage based upon all pertinent information, including but potentially not limited to this pathology report. pT Category: ?pTis (DCIS) pN Category: ?pN not assigned (no nodes submitted or found) Comment(s): ?Block for potential future ancillary testing: A4 INVASIVE CARCINOMA OF THE BREAST: Resection INVASIVE CARCINOMA OF THE BREAST: RESECTION - B, C, D, E Edition - Protocol posted: 11/18/2022 SPECIMEN ?? Procedure: ?Total mastectomy ?? Specimen Laterality: ?Right TUMOR ?? Tumor Site: ?Outer ?? Histologic Type: ?Invasive lobular carcinoma ?? Histologic Grade (Walpole Histologic Score): ? Glandular (Acinar) / Tubular Differentiation: ?Score 3 ? Nuclear Pleomorphism: ?Score 1 ? Mitotic Rate: ?Score 1 ? Overall Grade: ?Grade 1 (scores of 3, 4 or 5) ?? Tumor Size: ?Greatest dimension of largest invasive focus (Millimeters): 95 mm ?? Tumor Focality: ?Single focus of invasive carcinoma ?? Ductal Carcinoma In Situ (DCIS): ?Not identified ?? Lymphatic and / or Vascular Invasion: ?Not identified ?? Dermal Lymphatic and / or Vascular Invasion: ?Not identified ?? Treatment Effect in the Breast: ?No known presurgical therapy MARGINS ?? Margin Status for Invasive Carcinoma: ?Invasive carcinoma present at margin ? Margin(s) Involved by Invasive Carcinoma: ?Anterior-inferi or margin focally positive for invasive carcinoma, 2 mm focus slide B14 REGIONAL LYMPH NODES ?? Regional Lymph Node Status: ? : ?All regional lymph nodes negative for tumor ? Total Number of Lymph Nodes Examined (sentinel and non-sentinel): ?6 ? Number of [place] Nodes Examined: ?2 pTNM CLASSIFICATION (AJCC 8th Edition) ?? Reporting of pT, pN, and (when applicable) pM categories is based on information available to the pathologist at the time the report is issued. As per the AJCC (Chapter 1, 8th Ed.) it is the managing physician? s responsibility to establish the final pathologic stage based upon all pertinent information, including but potentially not limited to this pathology report. ?? pT Category: ?pT3 ?? pN Category: ?pN0 ?? Comment(s): ?Block for potential future ancillary testing: B4 Breast Biomarker Reporting Template BREAST: BIOMARKER REPORTING TEMPLATE - A Protocol posted: 08/19/2022 ?? Test(s) Performed: ? Estrogen Receptor (ER) Status: ?Positive (greater than 10% of cells demonstrate nuclear positivity) ? Percentage of Cells with Nuclear Positivity: ?91-100% ? Average Intensity of Staining: ?Strong ? Test Type: ?Laboratory-deve loped test ? Primary Antibody: ?SP1 ? Scoring System: ?Tigre ? Proportion Score: ?5 ? Intensity Score: ?3 ? Total Tigre Score: ?8 ?? Cold Ischemia and Fixation Times: ?Meet requirements specified in latest version of the ASCO / CAP Guidelines ?? Testing Performed on Block Number(s): ?A4 METHODS ?? Fixative: ?Formalin ?? Image Analysis: ?Not performed ?? Comment(s): ?ER analysis was performed by manual morphometry for the Tigre Scoring System 06/10/2023 12:32 PM TIRE FINISHER [facility] EN[facility]AL LABORATORY Additional Information Interpreted at [facility], Central Laboratory - [address] [facility] [address] [address] 06/10/2023 12:32 PM TIRE FINISHER [facility] LABORATORY Other (Left Breast) 05/27/2023 1:22 PM TIRE FINISHER 05/27/2023 2:40 PM TIRE FINISHER Specimen (specimen) (Right Breast) 05/27/2023 3:21 PM TIRE FINISHER 05/27/2023 3:30 PM TIRE FINISHER Specimen (specimen) (Right Axillary [place] Lymph Node 1) 05/27/2023 3:16 PM TIRE FINISHER 05/27/2023 4:12 PM TIRE FINISHER Specimen (specimen) (Right Axillary [place] Lymph Node 2) 05/27/2023 3:16 PM TIRE FINISHER 05/27/2023 4:12 PM TIRE FINISHER Specimen (specimen) (Right Axillary Lymph Node) 05/27/2023 3:17 PM TIRE FINISHER 05/27/2023 4:12 PM TIRE FINISHER Penelope [place] MD PATHOLOGY/[facility]TOLOGY [facility] [address] [place] [address], * XR MAMMO POST CLIP PLCMT LT (05/21/2023 11:40 AM TIRE FINISHER) Anatomical Region Laterality Modality BREASTS N/A Mammography Narrative 05/21/2023 2:59 PM TIRE FINISHER As a result of the Cures Act, medical imaging exams and procedure reports are released immediately into your electronic medical record. ??You may view this report before your referring provider. ??If you have questions, please contact your health care provider. LEFT BREAST POST-BIOPSY MAMMOGRAM CLIP PLACEMENT 05/21/2023 PLEASE SEE [id number] FOR REPORT OF LEFT BREAST BIOPSY OF SAME DAY. Penelope Lee MD MAMMO * MR BIOPSY BREAST NEEDLE W NUHA W GUIDE LEFT (05/21/2023 11:24 AM TIRE FINISHER) Anatomical Region Laterality Modality Breast Left Left Magnetic Resonan ce 05/21/2023 2:22 PM TIRE FINISHER Addenda Addendum by Torrie Vzaquez MD on 05/25/2023 3:38 PM TIRE FINISHER For Patients: As a result of the Cures Act, medical imaging exams and procedure reports are released immediately into your electronic medical record. ??You may view this report before your referring provider. ?? If you have questions, please contact your health care provider. ??ADDENDUM ? ADDENDUM ? ADDENDUM ADDENDUM: ??Pathology results for LEFT breast 2 o'clock 2 cm from the nipple MRI-guided biopsy demonstrates non-proliferative fibrocystic change including foci of stromal fibrosis. ??Negative for atypia and malignancy. ?? Pathology results reviewed with imaging findings and found concordant. ?? Surgical and oncological management per referring physician. ?? Breast Center nurse will contact the patient with the results. ?? Torrie Vazquez M.D. Diagnostic/Breast Radiologist [email or web address] / ?? Impressions 05/21/2023 2:59 PM TIRE FINISHER MRI-guided breast biopsy. When the pathology report is available, an addendum to this report will be made. ACR not applicable. Dictated by: Fior Joyner MD @05/21/2023 2:22:42 PM/jsb Narrative 05/21/2023 2:59 PM TIRE FINISHER For Patients: As a result of the Cures Act, medical imaging exams and procedure reports are released immediately into your electronic medical record. ??You may view this report before your referring provider. ?? If you have questions, please contact your health care provider. MRI-GUIDED BREAST BIOPSY AND POST-BIOPSY DIGITAL MAMMOGRAM FOR BIOPSY MARKER PLACEMENT, 05/21/2023 CLINICAL HISTORY: Enhancing mass in the outer LEFT breast on staging MRI. Recently diagnosed RIGHT breast cancer. Planned for BILATERAL mastectomies. COMPARISON STUDIES: Breast MRI 04/26/2023. TECHNIQUE: Pre- and post-contrast T1-weighted FLASH 3D with fat suppression sequences in axial and sagittal planes were obtained for lesion targeting. Another set of T1-weighted FLASH 3D with fat suppression sequences were obtained after the biopsy to document position of the marking clip. A vacuum-assisted biopsy system was used to obtain core tissue samples with a 9-gauge probe. CC and ML digital mammograms were obtained to document position of the biopsy marker. CONTRAST: 10 mL Gadavist. CONSENT and TIME OUT: The procedure, risks, and alternatives were explained to the patient and a consent was signed. [facility] Protocol was followed including pre-procedure verification that relevant information/documentation was available, reviewed and properly matched to the patient; consent accurate and complete; and equipment and supplies available. Time Out was conducted just prior to starting procedure to verify the four required elements: patient identity, correct side/site marked (if applicable), procedure, relevant images/results properly labeled and displayed (if applicable). PROCEDURE: The patient was positioned prone in the breast coil. The lesion position was determined on the MR images using a grid system. The breast was prepped with Betadine or ChloraPrep. 3 cc of 1 percent lidocaine was injected for superficial anesthesia and 10 cc of 1 percent lidocaine with epinephrine was injected for deeper anesthesia. Core tissue samples were obtained. A sterile titanium clip was placed percutaneously to nuha the lesion position within the breast. The specimens were placed in 10 percent formalin and sent to the pathology department. Pressure was held on the biopsy site until all bleeding subsided. The skin incision was closed with Steri-Strips. An ice pack was positioned over the biopsy site. Post-biopsy instructions were reviewed with the patient, and a written copy was given to her. LATERALITY: LEFT. LESION: 0.7 cm enhancing mass at 2 o'clock, 2 cm posterior to the nipple. SUSPICION FOR MALIGNANCY: Intermediate. NUMBER OF SAMPLES: 8. BIOPSY CLIP SHAPE: HydroMARK open coil. PROXIMITY OF CLIP TO TARGET: Displaced approximately 1 cm lateral to the targeted site. Penelope Lee MD MR * CANCER GENETIC SEND OUT (04/27/2023) Blood BLOOD SPECIMEN / Unknown 04/27/2023 Katie Gauthier MS, [facility] [place] [place] SEND OUTS * PATH BREAST CORE BIOPSY (04/15/2023 11:30 AM TIRE FINISHER) Case Report Pathology Report ?Case: [id number] ? Authorizing Provider: ??Unknown, Doctor ?Collected: ? 04/15/2023 1130 ? Ordering Location: ? [facility] ?Received: ?04/16/2023 0712 ? Pathologist: ? Ang Reis MD ? Specimen: ?Right Breast Core Ultrasound Biopsy ? 04/20/2023 12:16 PM [facility] Amendment 04/20/2023 - Amendment issued to incorporate ancillary studies. 04/20/2023 12:16 PM [facility]TRMD LAB[facility]AT[facility] Final Diagnosis A) RIGHT BREAST, 9:00, 3 CM FROM NIPPLE, ULTRASOUND-GUID ED CORE BIOPSY: 1. Invasive lobular carcinoma ?? a. Walpole grade: I of III; Walpole score: 5 of 9 ?? b. Angio-lymphatic invasion: Absent ?? c. Associated LCIS: Absent 2. Breast Ancillary Testing: ?a. Hormone Receptors: ?Estrogen receptor: Positive (95%, strong staining) ?Progesterone receptor: Positive (34%, moderate staining) ?b. HER2 by IHC: Negative (0 by manual morphometry) ?c. Ki-67: <1% 04/20/2023 12:16 PM [facility] EN[facility] Amendment electronically signed by Nia Salinas MD on 04/20/2023 at 12:16 PM Comment A) This is an image-guided breast biopsy. The pathologic findings should be correlated with radiologic and clinical findings prior to treatment decisions. Case seen in consultation with Dr. Fong. 04/20/2023 12:16 PM [facility] Clinical Information Right breast irregular lobulated indistinct solid hypoechoic mass, 35 x 28 mm, 9:00, 3 cm from the nipple. 04/20/2023 12:16 PM [facility] Gross Description A) Label: Patient's name and right breast Description: 7 Fibrofatty core biopsies Size: 0.4-1.7 cm in length by 0.2 cm in diameter Ink color: Blue The specimen is submitted in toto in one cassette. Cold ischemic time: Less than 60 minutes, meets current ASCO/CAP guidelines. ?? The specimen was fixed in formalin for a minimum of 6 hours and not longer than 72 hours. [facility] 04/16/2023 04/20/2023 12:16 PM [facility] Microscopic Description The final diagnosis is based on microscopic examination of appropriate sections of all specimens. A) The presence of blue ink is confirmed on tissue sections. Immunohistochem ical staining (performed on block A1): Stain: ? Result: CK AE1/AE3 ? Positive E-cadherin ? Negative for membranous staining p63 ?Negative 04/20/2023 12:16 PM [facility] SYNOPTIC REPORTING Breast Biomarker Reporting Template BREAST: BIOMARKER REPORTING TEMPLATE - A Protocol posted: 08/19/2022 ?? Test(s) Performed: ? Estrogen Receptor (ER) Status: ?Positive (greater than 10% of cells demonstrate nuclear positivity) ? Percentage of Cells with Nuclear Positivity: ?95 % ? Average Intensity of Staining: ?Strong ? Test Type: ?Laboratory-de veloped test ? Primary Antibody: ?SP1 ?? Test(s) Performed: ? Progesterone Receptor (PgR) Status: ?Positive ? Percentage of Cells with Nuclear Positivity: ?34 % ? Average Intensity of Staining: ?Moderate ? Test Type: ?Laboratory-de veloped test ? Primary Antibody: ?636 ?? Test(s) Performed: ? HER2 by Immunohistochem istry: ?Negative (Score 0) ? Test Type: ?Laboratory-de veloped test ? Primary Antibody: ?4B5 ?? Test(s) Performed: ?Ki-67 ? Ki-67 Percentage of Positive Nuclei: ?0 % ? Primary Antibody: ?MIB1 ?? Cold Ischemia and Fixation Times: ?Meet requirements specified in latest version of the ASCO / CAP Guidelines ?? Testing Performed on Block Number(s): ?A1 METHODS ?? Fixative: ?Formalin ?? Image Analysis: ?Performed ? Method: ?Aperio morphometric analysis ? Biomarkers Scored by Image Analysis: ?ER ? Biomarkers Scored by Image Analysis: ?PgR ? Biomarkers Scored by Image Analysis: ?Ki-67 ?? Comment(s): ?5,76 nuclei analyzed for Ki-67. 04/20/2023 12:16 PM TIRE FINISHER [facility] Additional Information Patients with breast cancers that are HER2 IHC 3+ or IHC 2+/DARÍO amplified may be eligible for several therapies that disrupt HER2 signaling pathways. Invasive breast cancers that test 'HER2-negative' (IHC 0, 1+ or 2+/DARÍO not-amplified) are more specifically considered 'HER2-negative for protein overexpression/ gene amplification' since non-overexpress ed levels of the HER2 protein may be present in these cases. Patients with breast cancers that are HER2 IHC 1+ or IHC 2+/DARÍO not amplified may be eligible for a treatment that targets non-amplified/n on-overexpresse d levels of HER2 expression for cytotoxic drug delivery (IHC 0 results do not result in eligibility currently). Interpreted at [facility], Central Laboratory - [address], [place] [address] 04/20/2023 12:16 PM TIRE FINISHER [facility] EN[facility]AL LABORATORY Other (Right Breast Core Ultrasound Biopsy) 04/15/2023 11:30 AM TIRE FINISHER 04/16/2023 7:12 AM TIRE FINISHER Doctor Unknown PATHOLOGY/CYTOLOGY [facility] LAB[facility]ATORY [address] [place] [address], [place] from Last 3 Months Care Teams Publishing Agent Relationship Specialty Start Date End Date Pcp, No . PCP - General 09/05/15
[2023-06-17 09:22] LABS: Ur HCG Qualitative* Negative (Negative)
== END 2023-06-17 09:07 | disposition home or self-care (01) ==
LOC: LAB 09:08
PROVIDERS: PCP Family Medicine; Visit Provider Physician Assistant
DX: C50.411 Malignant neoplasm of upper-outer quadrant of right female breast (principal)
CPT/HCPCS: 81025

== ENCOUNTER 2023-06-28 06:20 | Outpatient (CLI) | payer OTHER, SELFPAY ==
--- OUTSIDE RECORDS SUMMARY | 2023-06-28 06:22 | XMS_ITS ---
Author Name Unknown Organization [facility] Address [address] [place] [address] Care Team Providers Care Tank Maker Wood Name Role Phone Unavailable Unavailable Unavailable Surgery Details Not on file Complications Check Surgery Details section. Procedure Estimated Blood Loss Check Surgery Details section. Procedure Findings Check Surgery Details section. Procedure Specimens Taken Check Surgery Details section.
--- OUTSIDE RECORDS SUMMARY | 2023-06-28 06:22 | XMS_ITS | Clinical Summary ---
Author Name Unknown Organization [facility] Address [address] [place] [address] Care Team Providers Care Denture Finisher Name Role Phone Unavailable Primary Care Provider Unavailabl e Source Comments Patient records contain information from all sites at [facility]. For routine questions regarding patient records, call [phone] during business hours, M-F 8:00 AM - 5:00 PM Central Time. Record requests for emergency care only can be directed to [phone] at any time.[facility] Medications Medication Sig Dispensed Refills Start Date End Date Status balsalazide (COLAZAL) 750 mg capsule Take 750 mg by mouth. 0 08/27/2022 Active spironolactone (ALDACTONE) 25 mg tablet 0 08/26/2022 Active mometasone (ELOCON) 0.1 % cream Apply 1 Application topically 2 (two) times a day. Apply to right neck and upper back during radiotherapy. 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 Right (HCC) (Primary Dx) 06/17/2023 9:19 AM ASSISTANT CHIEF ENGINEER - 06/17/2023 5:07 PM ASSISTANT CHIEF ENGINEER Hospital Encounter Department of Radiation Oncology in [place], [place] [address] [place] [address] Po Light M.D. 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 Right (HCC) (Primary Dx) 06/16/2023 Orders Only Department of Radiation Oncology in [place], [place] [address] [place] [address] Kristel Pozo P.A.-C., M.S. 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 Right (HCC) (Primary Dx) from Last 3 Months Family History Medical History Relation Name Comments Breast cancer Cousin Maternal Relation Name Status Comments Cousin Social History Tobacco Use Types Packs/Day Years Used Date Smoking Tobacco: Never Smokeless Tobacco: Never Alcohol Use Standard Drinks/Week Comments Not Currently 0 (1 standard drink = 0.6 oz pur e alcohol) Nutrition Answer Date Recorded Nutrition: EVOO Fat Source Unknown 06/07 Nutrition: Servings of Fruits/Vegetables per Day Not on file 06/07/2023 Dental Answer Date Recorded Dental: Regular Dentist Unknown 06/07/19 Sex and Gender Information Value Date Recorded Sex Assigned at Not on file Gender Identity Not on file Sexual Orientation Not on file Last Filed Vital Signs Vital Sign Reading Time Taken Comments Blood Pressure 104/57 06/17/2023 9:23 AM ASSISTANT CHIEF ENGINEER Pulse 83 06/17/2023 9:23 AM ASSISTANT CHIEF ENGINEER Temperature 35.9 ??C (96.7 ??F) 06/17/2023 9:23 AM CS T Respiratory Rate - - Oxygen Saturation - - Inhaled Oxygen Concentration - - Weight 56.9 kg (125 lb 7.1 oz) 06/17/2023 9:23 A M ASSISTANT CHIEF ENGINEER Height - - Body Mass Index - - Plan of Treatment Upcoming Encounters Date Type Department Care Team (Late st Contact Info) Description 06/29/2023 3:00 PM ASSISTANT CHIEF ENGINEER Appointment Department of Radiation Oncology in [place], [place] [address] [place] [address] Po Light M.D. [address] [place] [address] Health Maintenance Due Date Last Done Comments CT Colonography 1977 Cervical Cancer Screening 1977 Cologuard 1977 Colonoscopy 1977 Colorectal Cancer Screening 1977 FIT 1977 Fasting Glucose for Diabetes Screening 1977 HIV Screening 1977 Hepatitis B Vaccines (1 of 3 - 3-dose series) 1977 Hepatitis C Screening 1977 Lipid (Cholesterol) Screening 1977 COVID-19 Vaccine (3 - season) 2023 07/24/2021, 06/30/2021 Influenza Vaccine (#1) 2023 , 03/17/2019, 03/01/2018, Additional history exists Depression Screening (Annual PHQ-2) 05/31/2023 DTaP,Tdap,and Td Vaccines (3 - Td or Tdap) 02/24/2028 02/23/2018, 04/20/2008 Mammogram Discontinued 05/27/2023, 05/01, 05/21/2023, Additional history exists HPV Vaccines Aged Out No longer eligi ble based on patient's age to complete this topic Pneumococcal vaccine (0-64 years) Aged Out No longer eligible based on patient's age to complete this topic Procedures Procedure Name Priority Date/Time Associated Diagnosis Comments OUTSIDE MG MAMMOGRAM Routine 05/27/2023 2:55 PM ASSISTANT CHIEF ENGINEER OUTSIDE MG MAMMOGRAM Routine 05/27/2023 1:35 PM ASSISTANT CHIEF ENGINEER OUTSIDE OTHER Routine 05/27/2023 11:00 AM ASSISTANT CHIEF ENGINEER OUTSIDE MR BREAST Routine 05/21/2023 10: 30 AM ASSISTANT CHIEF ENGINEER OUTSIDE MG MAMMOGRAM Routine 05/21/2023 12:00 AM ASSISTANT CHIEF ENGINEER OUTSIDE US BREAST Routine 05/06/2023 11: 10 AM ASSISTANT CHIEF ENGINEER OUTSIDE MR BREAST Routine 04/26/2023 6:0 5 PM ASSISTANT CHIEF ENGINEER OUTSIDE MG MAMMOGRAM Routine 04/15/2023 11:40 AM ASSISTANT CHIEF ENGINEER OUTSIDE US BREAST Routine 04/15/2023 11: 10 AM ASSISTANT CHIEF ENGINEER OUTSIDE US BREAST Routine 04/12/2023 11: 30 AM ASSISTANT CHIEF ENGINEER OUTSIDE MG MAMMOGRAM Routine 04/12/2023 11:10 AM ASSISTANT CHIEF ENGINEER from Last 3 Months Results * MM surgical specimen RT-Outside Mammogram (05/27/2023 2:55 PM ASSISTANT CHIEF ENGINEER) Only the most recent of5 resultswithin the time period is included. Narrative [facility] - 06/07/2023 11:49 AM ASSISTANT CHIEF ENGINEER This order has been created and auto-finalized to support the import of outside images. If available, original interpretation can be found on the Media Tab in Chart Review, in Document Viewer, or as an image in QREADS. If a re-interpretation or overread is required please follow defined workflow. ?? Provider Not In System IMG BI PROCEDURES Performing Organization Address [facility] Co de Phone Number [facility] NA * NM sentinel node inject only-Outside Other (05/27/2023 11:00 AM ASSISTANT CHIEF ENGINEER) Narrative [facility] - 06/07/2023 11:49 AM ASSISTANT CHIEF ENGINEER This order has been created and auto-finalized to support the import of outside images. If available, original interpretation can be found on the Media Tab in Chart Review, in Document Viewer, or as an image in QREADS. If a re-interpretation or overread is required please follow defined workflow. ?? Provider Not In System IMG DIAGNOSTIC IM AGING PROCEDURES Performing Organization Address [facility] Co de Phone Number [facility] NA * MR BIOPSY BREAST NEEDLE W NUHA W GUIDE LEFT-Outside MR Breast (05/21/2023 10:30 AM ASSISTANT CHIEF ENGINEER) Only the most recent of2 resultswithin the time period is included. Narrative [facility] - 06/07/2023 11:58 AM ASSISTANT CHIEF ENGINEER This order has been created and auto-finalized to support the import of outside images. If available, original interpretation can be found on the Media Tab in Chart Review, in Document Viewer, or as an image in QREADS. If a re-interpretation or overread is required please follow defined workflow. ?? Provider Not In System IMG MRI PROCEDURE S Performing Organization Address [facility]ZIP Co de Phone Number [facility] NA * US breast LT limited-Outside US Breast (05/06/2023 11:10 AM ASSISTANT CHIEF ENGINEER) Only the most recent of3 resultswithin the time period is included. Narrative [facility] - 06/07/2023 11:49 AM ASSISTANT CHIEF ENGINEER This order has been created and auto-finalized to support the import of outside images. If available, original interpretation can be found on the Media Tab in Chart Review, in Document Viewer, or as an image in QREADS. If a re-interpretation or overread is required please follow defined workflow. ?? Provider Not In System IMG BI PROCEDURES Performing Organization Address [facility] Co de Phone Number [facility] NA from Last 3 Months
--- OUTSIDE RECORDS SUMMARY | 2023-06-28 06:22 | XMS_ITS | Clinical Summary ---
Author Name Unknown Organization [facility] Address [place], [place] [address] Care Team Providers Care Development Officer Name Role Phone Janusz Cheema MD Primary Care Provider [phone] Allergies Active Allergy Reactions Criticality Noted Date [...] Encounters Date Type Department Care Team Description 06/22/2023 Telephone [facility] [address] [place] [address] Sahil Saeed MD Appointment 05/27/2023 Lab Requisition [facility] [phone] Penelope Lee MD 05/25/2023 Telephone [facility] [place] [address] [facility] [address] [place] [address] Savita Anna RN breast MRI biopsy results 05/21/2023 10:00 AM CHILD HEALTH ASSOCIATE - 05/21/2023 11:59 PM CHILD HEALTH ASSOCIATE Hospital Encounter [facility] [address] [facility] [address] [place] [address] Penelope Lee MD Breast cancer (HC) 05/21/2023 8:10 AM CHILD HEALTH ASSOCIATE - 05/21/2023 9:59 AM CHILD HEALTH ASSOCIATE Hospital Encounter [facility] [address] [place] [address] Penelope Lee MD Breast cancer (HC) 05/21/2023 Travel 05/10/2023 Telephone [facility] [address] [place] [address] Katie Gauthier MS, CGC Results 04/27/2023 4:00 PM CHILD HEALTH ASSOCIATE Orders Only [facility] [address] [place] [address] Lab (/) 04/27/2023 9:00 AM CHILD HEALTH ASSOCIATE Telemedicine [facility] [address] [place] [address] Katie Gauthier MS, CGC Counseling (Genetic counseling/ ) 04/27/2023 Travel 04/26/2023 Telephone [facility] [address] [place] [address] Zeyad Patiño Cancer genetics 04/25/2023 Travel 04/23/2023 Transcribe Orders [facility] [place] [address] [place] [address] Penelope Lee MD 04/15/2023 Lab Requisition [facility] [phone] Unknown, Doctor 04/09/2023 Telephone [facility] [address] [place] [address] Sahil Saeed MD Screening from Last 3 [...] CDT Respiratory Rate 12 07/06/2012 3:32 PM CHILD HEALTH ASSOCIATE Oxygen Saturation 97% 08/27/2022 3:58 PM CDT Inhaled Oxygen Concentration - - Weight 57.6 kg (126 lb 14.4 oz) 08/27/2022 3:58 PM CDT Height 161.6 cm (5' 3.62) 09/22/2017 4:00 PM CD T Body Mass Index 22.04 09/22/2017 4:00 PM CDT Plan of Treatment Upcoming Encounters Date Type Department Care Team (Late st Contact Info) Description 06/28/2023 6:30 AM CHILD HEALTH ASSOCIATE Office Visit [facility] [address] [facility] [place] [phone] Sahil Saeed MD [address] [place] [address] 07/01/2023 9:30 AM CHILD HEALTH ASSOCIATE Appointment [facility] [address] [place] [address] Health Maintenance Due Date Last Done Comments [...] MSO AP SEND-OUT Routine 05/27/2023 3:21 PM CHILD HEALTH ASSOCIATE LAB TRACKING EVENT Routine 05/27/2023 2: 54 PM CHILD HEALTH ASSOCIATE PATH TISSUE EXAM Routine 05/27/2023 1:22 PM CHILD HEALTH ASSOCIATE XR MAMMO POST CLIP PLCMT LT MAYDA 05/21/2023 11:40 AM CHILD HEALTH ASSOCIATE Breast cancer (HC) MR BIOPSY BREAST NEEDLE W NUHA W GUIDE LEFT MAYDA 05/21/2023 11:24 AM CHILD HEALTH ASSOCIATE Breast cancer (HC) PATH TISSUE EXAM Today 05/21/2023 11:1 0 AM CHILD HEALTH ASSOCIATE CANCER GENETIC SEND OUT Routine 04/27/2023 Malignant neoplasm of female breast, unspecified estrogen receptor status, unspecified laterality, unspecified site of breast (HC) LAB TRACKING EVENT Routine 04/15/2023 11 :30 AM CHILD HEALTH ASSOCIATE PATH BREAST CORE BIOPSY Routine 04/15/2023 11:30 AM CHILD HEALTH ASSOCIATE from Last 3 Months Results * MSO AP SEND-OUT (05/27/2023 3:21 PM CHILD HEALTH ASSOCIATE) Other (Right Breast) 05/27/2023 3:21 PM CHILD HEALTH ASSOCIATE 06/03/2023 1:11 PM CHILD HEALTH ASSOCIATE Penelope Lee MD LABORATORY Performing Organization Address [facility] Co de Phone Number [facility] [address] [place] [address], * LAB TRACKING EVENT (05/27/2023 2:54 PM CHILD HEALTH ASSOCIATE) Only the most recent of2 resultswithin the time period is included. Other (Other) Client Collect / Unknown 05/27/2023 2:54 PM CHILD HEALTH ASSOCIATE 05/28/2023 10:37 AM CHILD HEALTH ASSOCIATE Penelope Lee MD LAB BILL ONLY Performing Organization Address [facility] Co de Phone Number [facility] [address] [place] [address], * PATH TISSUE EXAM (05/27/2023 1:22 PM CHILD HEALTH ASSOCIATE) Only the most recent of2 resultswithin the time period is included. Case Report Pathology Report ?Case: [id number] ? Authorizing Provider: ??Penelope Lee MD ?Collected: ? 05/27/2023 1322 ? Ordering Location: ? [facility] ?Received: ?05/27/2023 1440 ? Pathologist: ? Ang Reis MD ? Specimens: ?? A) - Left Breast, Single stitch 12:00, double stitch thickened lesion in left ? axilla/frozen ? B) - Right Breast, stitch at 12:00 ? C) - Right Axillary Aurora Lymph Node 1, Aurora node number 1 ? D) - Right Axillary Aurora Lymph Node 2, Aurora node number 2 ? E) - Right Axillary Lymph Node, Right additional bhavya tissue ? 06/10/2023 12:32 PM CHILD HEALTH ASSOCIATE [facility]-C ENTRAL LABORATORY Amendment 06/09/2023 - Amendment issued to incorporate ancillary ER studies. 06/10/2023-The tissue was submitted to [employer] for Oncotype DX for Breast Cancer testing. ??Please see attached scanned report. 06/10/2023 12:32 PM CHILD HEALTH ASSOCIATE [facility] ENTRAL LABORATORY Final Diagnosis A) LEFT [...] WITH MARGIN ASSESSMENT: 1. Invasive lobular carcinoma, Jewell Ridge grade I of III ?a. Size: at least 95 mm ?b. Core biopsy site associated with carcinoma 2. Anterior-inferior margin focally positive for invasive carcinoma 3. Breast Ancillary Testing: Performed on prior case ([id number]) ?a. Hormone Receptors: ?Estrogen receptor: Positive (95%, [...] for metastatic carcinoma (0/4) 06/10/2023 12:32 PM [facility] ENTRAL LABORAT[facility] Amendment electronically signed by Ang [...] tumor based upon size). 06/10/2023 12:32 PM [facility] ENTRAL LABORAT[facility] Clinical Information Patient with recently diagnosed invasive lobular carcinoma (see right breast core biopsy [id number] from 04/15/23). 06/10/2023 12:32 PM [facility]- ENTRAL LABORATORY Gross Description A) Received fresh, labeled [...] associated with dense firm fibrous villavicencio-white tissue. ??Structural Designer sections straddling the double suture (2 pieces) [...] tissue. No lymph nodes are identified grossly. Structural Designer sections are submitted in 14 cassettes: 1. [...] tissue. No lymph nodes are identified grossly. Structural Designer sections are submitted in 21 cassettes: 1. [...] hours. LDW 05/28/2023 ?? 06/10/2023 12:32 PM CHILD HEALTH ASSOCIATE [facility] EN[facility]AL LABORAT[facility] Intraoperative Consultation A) LEFT BREAST, INTRAOPERATIVE CONSULTATION WITH FROZEN SECTION(S): [Number of frozen sections prepared: 1 block] 1. Benign breast tissue present at posterior margin 2. No atypia, in-situ, or invasive carcinoma identified Nia Salinas MD, via telepathology with SIMEON Gonzalez ([facility]) 05/27/2023 2:23 PM B) RIGHT BREAST, MASTECTOMY, INTRAOPERATIVE CONSULTATION (Gross Evaluation Only): 1. Tumor grossly identified 2. Biopsy site change is identified grossly 3. Margins are grossly negative by 2 mm (the closest margins are anterior superior and anterior inferior) 4. The mastectomy specimen is 379 grams Savita Echevarria MD, via telepathology with SIMEON Gonzalez ([facility]) 05/27/2023 3:00 PM Intraoperative consultation, which may have included frozen section preparation, gross specimen examination, and/or cytology touch imprints/smears, was performed by a pathologist during the surgical procedure. ??This testing was performed at: [address] [address] 06/10/2023 12:32 PM [facility] ENTRAL LAB[facility] Microscopic Description The final diagnosis [...] facilitating accurate margin assessment 06/10/2023 12:32 PM [facility]-C ENTRAL LABORATORY SYNOPTIC REPORTING DCIS [...] BREAST: RESECTION - B, C, D, E 8th Edition - Protocol posted: 11/18/2022 SPECIMEN ?? Procedure: ?Total mastectomy ?? Specimen Laterality: ?Right TUMOR ?? Tumor Site: ?Outer ?? Histologic Type: ?Invasive lobular carcinoma ?? Histologic Grade (Jewell Ridge Histologic Score): ? Glandular (Acinar) / Tubular [...] (sentinel and non-sentinel): ?6 ? Number of Aurora Nodes Examined: ?2 pTNM CLASSIFICATION (AJCC 8th [...] the Tigre Scoring System 06/10/2023 12:[address] ASS[address]IATE [facility]-C ENTRAL LABORATORY Additional Information Interpreted at [facility], Central Laboratory - [address] [place] [id number] 06/10/2023 12:32 PM CHILD HEALTH ASSOCIATE [facility]- ENTRAL LABORATORY Other (Left Breast) 05/27/2023 1:22 PM CHILD HEALTH ASSOCIATE 05/27/2023 2:40 PM CHILD HEALTH ASSOCIATE Specimen (specimen) (Right Breast) 05/27/2023 3:21 PM CHILD HEALTH ASSOCIATE 05/27/2023 3:30 PM CHILD HEALTH ASSOCIATE Specimen (specimen) (Right Axillary Aurora Lymph Node 1) 05/27/2023 3:16 PM CHILD HEALTH ASSOCIATE 05/27/2023 4:12 PM CHILD HEALTH ASSOCIATE Specimen (specimen) (Right Axillary Aurora Lymph Node 2) 05/27/2023 3:16 PM CHILD HEALTH ASSOCIATE 05/27/2023 4:12 PM CHILD HEALTH ASSOCIATE Specimen (specimen) (Right Axillary Lymph Node) 05/27/2023 3:17 PM CHILD HEALTH ASSOCIATE 05/27/2023 4:12 PM CHILD HEALTH ASSOCIATE Penelope Lee MD PATHOLOGY/CYTOLOGY [facility]-CENTRAL LABORATORY [address] [place] [address], [place] * XR MAMMO POST CLIP PLCMT LT (05/21/2023 11:40 AM CHILD HEALTH ASSOCIATE) Anatomical Region Laterality Modality BREASTS N/A Mammography Narrative 05/21/2023 2:59 PM CHILD HEALTH ASSOCIATE As a result of the Cures Act, medical imaging exams and procedure reports are released immediately into your electronic medical record. ??You may view this report before your referring provider. ??If you have questions, please contact your health care provider. LEFT BREAST POST-BIOPSY MAMMOGRAM CLIP PLACEMENT 05/21/2023 PLEASE SEE [id number] FOR REPORT OF LEFT BREAST BIOPSY OF SAME DAY. Penelope Lee MD MAMMO * MR BIOPSY BREAST NEEDLE W NUHA W GUIDE LEFT (05/21/2023 11:24 AM CHILD HEALTH ASSOCIATE) Anatomical Region Laterality Modality Breast Left Left Magnetic Resonan ce 05/21/2023 2:22 PM CHILD HEALTH ASSOCIATE Addenda Addendum by Torrie Vazquez MD on 05/25/2023 3:38 PM CHILD HEALTH ASSOCIATE For Patients: As a result of the [...] LEDY/lucie / ?? Impressions 05/21/2023 2:59 PM CHILD HEALTH ASSOCIATE MRI-guided breast biopsy. When the pathology report is available, an addendum to this report will be made. ACR not applicable. Dictated by: Fior Joyner MD @05/21/2023 2:22:42 PM/jsb Narrative 05/21/2023 2:59 PM CHILD HEALTH ASSOCIATE For Patients: As a result of the Century Cures Act, medical imaging exams and procedure [...] the patient and a consent was signed. [place] Protocol was followed including pre-procedure verification that [...] SPECIMEN / Unknown 04/27/2023 Katie Gauthier MS, [facility] SEND OUTS * PATH BREAST CORE BIOPSY (04/15/2023 11:30 AM CHILD HEALTH ASSOCIATE) Case Report Pathology Report ?Case: [id number] ? Authorizing Provider: ??Unknown, Doctor ?Collected: ? 04/15/2023 1130 ? Ordering Location: ? [facility] ?Received: ?04/16/2023 0712 ? Pathologist: ? Ang Reis MD ? Specimen: ?Right Breast Core Ultrasound Biopsy ? 04/20/2023 12:16 PM CHILD HEALTH ASSOCIATE [facility]-C ENTRAL LABORATORY Amendment 04/20/2023 - Amendment issued to incorporate ancillary studies. 04/20/2023 12:16 PM [facility] ENTRAL LABORAT[facility] Final Diagnosis A) RIGHT BREAST, 9:00, 3 CM FROM NIPPLE, ULTRASOUND-GUID ED CORE BIOPSY: 1. Invasive lobular carcinoma ?? a. Ashutosh grade: I of III; Jewell Ridge score: 5 of 9 ?? b. Angio-lymphatic invasion: Absent ?? c. Associated LCIS: Absent 2. Breast Ancillary Testing: ?a. Hormone Receptors: ?Estrogen receptor: Positive (95%, strong staining) ?Progesterone receptor: Positive (34%, moderate staining) ?b. HER2 by IHC: Negative (0 by manual morphometry) ?c. Ki-67: <1% 04/20/2023 12:16 PM [facility] Amendment electronically signed by Nia Salinas MD on 04/20/2023 at 12:16 PM Comment A) This is an image-guided breast biopsy. The pathologic findings should be correlated with radiologic and clinical findings prior to treatment decisions. Case seen in consultation with Dr. Fong. 04/20/2023 12:16 PM [facility] ENTRAL LABORATORY Clinical Information Right breast irregular lobulated indistinct solid hypoechoic mass, 35 x 28 mm, 9:00, 3 cm from the nipple. 04/20/2023 12:16 PM [facility] ENTRAL LABORATORY Gross Description A) Label: Patient's name [...] 72 hours. [place] 04/16/2023 04/20/2023 12:16 PM [facility] Microscopic Description The final diagnosis is based on microscopic examination of appropriate sections of all specimens. A) The presence of blue ink is confirmed on tissue sections. Immunohistochem ical staining (performed on block A1): Stain: ? Result: CK AE1/AE3 ? Positive E-cadherin ? Negative for membranous staining p63 ?Negative 04/20/2023 12:16 PM [facility] SYNOPTIC REPORTING Breast Biomarker Reporting Template [...] nuclei analyzed for Ki-67. 04/20/2023 12:16 PM CHILD HEALTH ASSOCIATE [facility] ENTRAL LABORATORY Additional Information Patients with [...] not result in eligibility currently). Interpreted at [facility], Central Laboratory - [address], [place] [address] 04/20/2023 12:16 PM [facility]-C ENTRAL LABORATORY Other (Right Breast Core Ultrasound Biopsy) 04/15/2023 11:30 AM CHILD HEALTH ASSOCIATE 04/16/2023 7:12 AM CHILD HEALTH ASSOCIATE Doctor Unknown PATHOLOGY/CYTOLOGY [facility]-CENTRAL LABORATORY [address] [place] [address], from Last 3 Months Care Teams Development Officer Relationship Specialty Start Date End Date Janusz Cheema MD [address] [place] [phone] PCP - General Family Practice 06/17/23
--- OUTSIDE RECORDS SUMMARY | 2023-06-28 06:22 | XMS_ITS | Encounter Summary ---
Author Name Unknown Organization [facility] Address [address] [place] [address] Care Team Providers Care Heading Machine Operator Name Role Phone Unavailable Primary Care Provider Unavailabl e Reason for Referral * Outpatient (Routine) - Authorized Specialty Diagnoses / Procedures Referred By Contac t Referred To Contact Radiation Oncology Po Light M.D. [address] [place] [phone] [facility] Region Referral ID Status Reason Start Date Expiration Date V isits Requested Visits Authorized [id number] Authorized 06/16/2023 06/15/2026 1 1 OR SYSTEMS DEVELOPER * Outpatient (Routine) - Authorized Specialty Diagnoses / Procedures Referred By Contac t Referred To Contact Radiation Oncology Po Light M.D. [address] [place] [address] [phone] [facility] Region Referral ID Status Reason Start Date Expiration Date V isits Requested Visits Authorized [id number] Authorized 06/16/2023 06/15/2026 10 10 OR SYSTEMS DEVELOPER * Specialty Diagnoses / Procedures Referred By Contac t Referred To Contact Kristel Pozo P.A.-C., M.S. [address] [place] [phone] [facility] Region Referral ID Status Reason Start Date Expiration Date Visits Re quested Visits Authorized OR SYSTEMS DEVELOPER * Specialty Diagnoses / Procedures Referred By Contac t Referred To Contact Kristel Pozo P.A.-C., M.S. [address] [place] [phone] [facility] Region Referral ID Status Reason Start Date Expiration Date Visits Re quested Visits Authorized OR SYSTEMS DEVELOPER * Radiation Therapy (Routine) - Authorized Specialty Diagnoses / Procedures Referred By Contac t Referred To Contact Diagnoses 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 Right (HCC) Procedures Management Visit Po Light M.D. [address] [place] [phone] [facility] Region Referral ID Status Reason Start Date Expiration Date V isits Requested Visits Authorized [id number] Authorized 06/16/2023 06/15/2024 10 10 OR SYSTEMS DEVELOPER * Radiation Therapy (Routine) - Authorized Specialty Diagnoses / Procedures Referred By Lorie t Referred To Contact Diagnoses 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 Right (HCC) Procedures Prior Auth Rad Tx UT IMRT SIMPLE IMRT Breast Po Light M.D. [address] [place] [phone] [facility] Referral ID Status Reason Start Date Expiration Date V isits Requested Visits Authorized [id number] Authorized 06/28/2023 06/15/2024 30 30 OR SYSTEMS DEVELOPER * Radiation Therapy (Routine) - Authorized Specialty Diagnoses / Procedures Referred By Lorie mohan Referred To Contact Diagnoses 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 Right (HCC) Procedures Initial Rad Onc Treatment Planning CT Simulation Po Light M.D. [address] [place] [phone] [facility] Region Referral ID Status Reason Start Date Expiration Date V isits Requested Visits Authorized [id number] Authorized 06/16/2023 06/15/2024 1 1 OR SYSTEMS DEVELOPER Encounter Details Date Type Department Care Team (Late Contact Info) Description 06/16/2023 Orders Only Department of Radiation Oncology in [place], [place] [address] [place] [phone] Kristel Pozo P.A.-C., M.S. [address] [place] [phone] 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 Right (HCC) (Primary Dx) Social History Tobacco Use Types Packs/Day Years Used Date Smoking Tobacco: Never Nutrition Answer Date Recorded Nutrition: EVOO Fat Source Unknown 06/07 Nutrition: Servings of Fruits/Vegetables per Day Not on file 06/07/2023 Dental Answer Date Recorded Dental: Regular Dentist Unknown 06/07/19 Sex and Gender Information Value Date Recorded Sex Assigned at Not on file Gender Identity Not on file Sexual Orientation Not on file documented as of this encounter Plan of Treatment Upcoming Encounters Date Type Department Care Team (Late st Contact Info) Description 06/29/2023 3:00 PM SENIOR SYSTEMS DEVELOPER Appointment Department of Radiation Oncology in [place], [place] [address] [place] [phone] Po Light M.D. [address] [place] [phone] Scheduled Orders Name Type Priority Associated Diagnoses Order Schedule Prior Auth Rad Tx Radiation Oncology Routine 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 Right (HCC) Ordered: 06/16/2023 Management Visit Radiation Oncology Routine 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 Right (HCC) 10 Occurrences starting 06/16/2023 until 06/16/2024 Scheduled Referrals Name Type Priority Associated Diagnoses Order Schedule Radiation Oncology - PRO education visit Outpatient Referral Routine 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 Right (HCC) Expected: 06/16/2023 (Approximate), Expires: 09/14/2024 Radiation Oncology - Nurse education visit (clinic) Outpatient Referral Routine 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 Right (HCC) Expected: 06/16/2023 (Approximate), Expires: 06/16/2024 Radiation Oncology nurse visit (clinic) Outpatient Referral Routine 10 Occurrenc es starting 06/16/2023 until 06/16/2024 Radiation Oncology nurse visit (clinic) Outpatient Referral Routine Expected: (Approximate), Expires: 09/14/2024 documented as of this encounter Visit Diagnoses Diagnosis 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 Right (HCC)- Primary documented in this encounter
--- OUTSIDE RECORDS SUMMARY | 2023-06-28 06:22 | XMS_ITS | Referral Summary ---
Author Name Unknown Organization [facility] Address [address] [place] [address] Care Team Providers Care Sales Market Leader Name Role Phone Unavailable Primary Care Provider Unavailabl e Source Comments Patient records contain information from all sites at [facility]. For routine questions regarding patient records, call [phone] during business hours, M-F 8:00 AM - 5:00 PM Central Time. Record requests for emergency care only can be directed to [phone] at any time.[facility] Encounters Date Type Department Care Team Description 06/17/2023 10:30 AM [facility] Hospital Encounter Department of Radiation Oncology in [address] [phone] Po Light M.D. 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 Right (HCC) (Primary Dx) 06/17/2023 9:19 AM CEMENT CRUSHER OPERATOR - 06/17/2023 5:07 PM [facility] Hospital Encounter Department of Radiation Oncology in [address] [address] Po Light M.D. 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 Right (HCC) (Primary Dx) 06/16/2023 Orders Only Department of Radiation Oncology in [address] [phone] Kristel Pozo P.A.-C., M.S. 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 Right (HCC) (Primary Dx) from Last 3 Months Medications Medication Sig Dispensed Refills Start Date [...] 05/27/2023:Stage 0(pTis (DCIS), cN0, cM0, G1, ER+, RI: Not Assessed, HER2: Not Assessed) - Unsigned 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 Right 06/09/2023 Cancer Staging:Pathologic stage from 05/27/2023:Stage IA(pT3, pN0(sn), cM0, G1, ER+, RI+, HER2-, Oncotype DX score: 10) - Unsigned Pathologic: Unsigned Social History Tobacco Use Types Packs/Day Years [...] Comments Blood Pressure 104/57 06/17/2023 9:23 AM CEMENT CRUSHER OPERATOR Pulse 83 06/17/2023 9:23 AM CEMENT CRUSHER OPERATOR Temperature 35.9 ??C (96.7 ??F) 06/17/2023 9:23 AM CS T Respiratory Rate - - Oxygen Saturation - - Inhaled Oxygen Concentration - - Weight 56.9 kg (125 lb 7.1 oz) 06/17/2023 9:23 A M CEMENT CRUSHER OPERATOR Height - - Body Mass Index - - Plan of Treatment Upcoming Encounters Date Type Department Care Team (Late st Contact Info) Description 06/29/2023 3:00 PM CEMENT CRUSHER OPERATOR Appointment Department of Radiation Oncology in [place], [place] [address] [place] [phone] Po Light M.D. [address] [place] [address] Procedures Procedure Name Priority Date/Time Associated Diagnosis Comments OUTSIDE MG MAMMOGRAM Routine 05/27/2023 2:55 PM CEMENT CRUSHER OPERATOR OUTSIDE MG MAMMOGRAM Routine 05/27/2023 1:35 PM CEMENT CRUSHER OPERATOR OUTSIDE OTHER Routine 05/27/2023 11:00 AM CEMENT CRUSHER OPERATOR OUTSIDE MR BREAST Routine 05/21/2023 10: 30 AM CEMENT CRUSHER OPERATOR OUTSIDE MG MAMMOGRAM Routine 05/21/2023 12:00 AM CEMENT CRUSHER OPERATOR OUTSIDE US BREAST Routine 05/06/2023 11: 10 AM CEMENT CRUSHER OPERATOR OUTSIDE MR BREAST Routine 04/26/2023 6:0 5 PM CEMENT CRUSHER OPERATOR OUTSIDE MG MAMMOGRAM Routine 04/15/2023 11:40 AM CEMENT CRUSHER OPERATOR OUTSIDE US BREAST Routine 04/15/2023 11: 10 AM CEMENT CRUSHER OPERATOR OUTSIDE US BREAST Routine 04/12/2023 11: 30 AM CEMENT CRUSHER OPERATOR OUTSIDE MG MAMMOGRAM Routine 04/12/2023 11:10 AM CEMENT CRUSHER OPERATOR from Last 3 Months Results * MM surgical specimen RT-Outside Mammogram (05/27/2023 2:55 PM CEMENT CRUSHER OPERATOR) Only the most recent of5 resultswithin the time period is included. Narrative [facility] - 06/07/2023 11:49 AM CEMENT CRUSHER OPERATOR This order has been created and auto-finalized to support the import of outside images. If available, original interpretation can be found on the Media Tab in Chart Review, in Document Viewer, or as an image in QREADS. If a re-interpretation or overread is required please follow defined workflow. ?? Provider Not In System IMG BI PROCEDURES IIVA NA * NM sentinel node inject only-Outside Other (05/27/2023 11:00 AM CEMENT CRUSHER OPERATOR) Narrative [facility] - 06/07/2023 11:49 AM CEMENT CRUSHER OPERATOR This order has been created and auto-finalized to support the import of outside images. If available, original interpretation can be found on the Media Tab in Chart Review, in Document Viewer, or as an image in QREADS. If a re-interpretation or overread is required please follow defined workflow. ?? Provider Not In System IMG DIAGNOSTIC IM AGING PROCEDURES Performing Organization Address [facility] de Phone Number II NA * MR BIOPSY BREAST NEEDLE W NUHA W GUIDE LEFT-Outside MR Breast (05/21/2023 10:30 AM CEMENT CRUSHER OPERATOR) Only the most recent of2 resultswithin the time period is included. Narrative [facility] 06/07/2023 11:58 AM CEMENT CRUSHER OPERATOR This order has been created and auto-finalized to support the import of outside images. If available, original interpretation can be found on the Media Tab in Chart Review, in Document Viewer, or as an image in QREADS. If a re-interpretation or overread is required please follow defined workflow. ?? Provider Not In System IMG MRI PROCEDURE S Performing Organization Address [facility] de Phone Number II NA * US breast LT limited-Outside US Breast (05/06/2023 11:10 AM CEMENT CRUSHER OPERATOR) Only the most recent of3 resultswithin the time period is included. Narrative [facility] - 06/07/2023 11:49 AM CEMENT CRUSHER OPERATOR This order has been created and auto-finalized to support the import of outside images. If available, original interpretation can be found on the Media Tab in Chart Review, in Document Viewer, or as an image in QREADS. If a re-interpretation or overread is required please follow defined workflow. ?? Provider Not In System IMG BI PROCEDURES Performing Organization Address [facility] de Phone Number II NA from Last 3 Months
--- OUTSIDE RECORDS SUMMARY | 2023-06-28 06:22 | XMS_ITS | Encounter Summary ---
Author Name Unknown Organization [facility] Address [address] [place] [address] Care Team Providers Care Vision Care Associate Name Role Phone Unavailable Primary Care Provider Unavailabl e Reason for Visit * Appointment Request (Routine) - Closed Specialty Diagnoses / Procedures Referred By Contac t Referred To Contact Radiation Oncology Diagnoses Malignant Neoplasm Of Unspecified Site Of Laterality Unknown Female Breast (HCC) Referral ID Status Reason Start Date Expiration Date Visits Re quested Visits Authorized [id number] Closed 06/07/2023 06/06/2024 1 1 Encounter Details Date Type Department Care Team (Latest Contact Info) Description 06/17/2023 9:19 AM HORSE RIDER - 06/17/2023 5:07 PM HORSE RIDER Hospital Encounter Department of Radiation Oncology in [place], [place] [address] [place] [address] Po Light M.D. [address] [place] [address] Malignant Neoplasm Of Breast Upper Outer Quadrant [...] on file documented as of this encounter Last Filed Vital Signs Vital Sign Reading Time Taken Comments Blood Pressure 104/57 06/17/2023 9:23 AM HORSE RIDER Pulse 83 06/17/2023 9:23 AM HORSE RIDER Temperature 35.9 ??C (96.7 ??F) 06/17/2023 9:23 AM CS T Respiratory Rate - - Oxygen Saturation - - Inhaled Oxygen Concentration - - Weight 56.9 kg (125 lb 7.1 oz) 06/17/2023 9:23 A M HORSE RIDER Height - - Body Mass Index - - documented in this encounter Medications at Time of Discharge Medication Sig Dispensed Refills Start Date End Date balsalazide (COLAZAL) 750 mg capsule Take 750 mg by mouth. 0 08/27/2022 mometasone (ELOCON) 0.1 % cream Apply 1 Application topically 2 (two) times a day. Apply to right neck and upper back during radiotherapy. 45 g 1 06/17/2023 spironolactone (ALDACTONE) 25 mg tablet 0 08/26/2022 documented as of this encounter Consult Notes * Kristel Pozo P.A.-C., M.S. - 06/17/2023 9:30 AM CST SUBJECTIVE REQUESTING PROVIDER No ref. provider found CHIEF COMPLAINT/REASON FOR CONSULT 1. 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 ([id number]) HISTORY OF PRESENT ILLNESS Radha Alcocer Nay Rosski is a 47-year-old female with stage IA (pT3, pN0(sn), cM), G1, ER+,AZ+, HER2-) invasive lobular carcinoma of the right breast, who presents today for an opinion regarding the role of radiation therapy in the management of the patient's disease. Her oncologic history is as follows: Oncology History 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 Right (HCC) 04/06/2023 Other Well woman exam with Dr. Paty Campos. Physical examination of the right breast demonstrated an irregular lump measuring 5 cm, located at the 8-10 o'clock lateral aspect of the right breast with a retracted nipple. No palpable lymphadenopathy bilaterally. No dominant masses palpated in the left breast. 04/12/2023 Critical Imaging Bilateral diagnostic mammogram with tomosynthesis demonstrated an asymmetric density present withinthe lateral right breast amongst extremely dense breast tissue. No suspicious calcifications bilaterally. Targeted right breast ultrasound performed at the 9 o'clock position, 3 cm from the nipple, demonstrated a somewhat ill-defined lobular mass with heterogeneous hypoechoic echotexture measuring approximately 2.5 x 2.8 cm. No discernible abnormal lymph nodes in the axilla. 04/15/2023 Biopsy/Pathology A) RIGHT BREAST, 9:00, 3 CM FROM NIPPLE, ULTRASOUND-GUIDED CORE BIOPSY: 1. Invasive lobular carcinoma a. Newnan grade: I of III; Ashutosh score: 5 of 9 b. Angio-lymphatic invasion: Absent c. Associated LCIS: Absent 2. Breast Ancillary Testing: a. Hormone Receptors: Estrogen receptor: Positive (95%, strong staining) Progesterone receptor: Positive (34%, moderate staining) b. HER2 by IHC: Negative (0 by manual morphometry) c. Ki-67: <1% 04/21/[address] Penelope Lee who recommended mastectomy and sentinel lymph node biopsy. Plan to obtain a bilateral breast MRI. The patient was interested in reconstruction and she will be scheduled to meet with the plastic surgeons for delayed immediate reconstruction. Genetic testing was also recommended. 04/26/2023 Critical Imaging MR bilateral breasts demonstrated heterogeneous non-mass enhancement in a segmental distribution within the upper outer quadrant of the right breast spanning clockwise from 8 o'clock to 12 o'clock, anterior to posterior depth, measuring 4.0 x 4.0 x 3.0 cm. This is consistent with the site of biopsy-proven malignancy. There appeared to be overlying skin dimpling. In the right breast at the 11-12 o'clock position, posterior depth, approximately 6.5 cm from the nipple there was an irregular mass with irregular margins and heterogeneous internal enhancement measuring 1.4 x 0.8 x 1.3 cm. This was located approximately 2 cm superior and medial to the site of biopsy-proven malignancy. In the left breast at the 2 o'clock position, middle depth, approximately 2.5 cm from the nipple, there was an oval, enhancing mass with nonenhancing internal septations measuring 0.6 x 0.5 x 0.7 cm. No suspicious adenopathy. 05/06/2023 Critical Imaging Ultrasound of the left breast demonstrated no sonographic abnormality detected to correspond with MRI. 05/21/2023 Biopsy/Pathology A) LEFT BREAST, 2:00, 2 CM POSTERIOR TO THE NIPPLE, MRI-GUIDED CORE BIOPSY: 1. Non-proliferative fibrocystic change including foci of stromal fibrosis 2. Negative for atypia and malignancy 05/27/2023 Surgery and Procedures Bilateral mastectomies and right axillary sentinel lymph node biopsy was performed by Dr. Lee. A) LEFT BREAST, ORIENTED PROPHYLACTIC MASTECTOMY WITH MARGIN ASSESSMENT: 1. Ductal carcinoma in situ (DCIS), nuclear grade 1, cribriform / papillary types a. Size: 2 mm b. All margins negative for DCIS, > 5 mm from all margins c. Core biopsy site is adjacent to DCIS 2. Breast Ancillary Testing: a. Estrogen receptor: Positive (91-100%, strong staining by manual morphometry) 3. Background breast tissue with foci of atypical lobular hyperplasia (ALH), proliferative fibrocystic changes, secretory changes and intraductal papilloma (2 mm) 4. Skin and nipple with no histopathologic abnormality 5. Negative for invasive carcinoma 6. See comment B) RIGHT BREAST, ORIENTED MASTECTOMY WITH MARGIN ASSESSMENT: 1. Invasive lobular carcinoma, Newnan grade I of III a. Size: at least 95 mm b. Core biopsy site associated with carcinoma 2. Anterior-inferior margin focally positive for invasive carcinoma 3. Breast Ancillary Testing: Performed on prior case ([id number]) a. Hormone Receptors: Estrogen receptor: Positive (95%, strong staining) Progesterone receptor: Positive (34%, moderate staining) b. HER2 by IHC: Negative (0 by manual morphometry) c. Ki67: < 1% 4. Background breast tissue [...] nodes, all negative for metastatic carcinoma (0/4) SPECIMEN Procedure: Total mastectomy Specimen Laterality: Left TUMOR Tumor Site: Clock position : 2 o'clock Tumor Site: Distance from nipple (Centimeters): 2 cm Histologic Type: Ductal carcinoma in situ Size (Extent) of DCIS: Estimated size (extent) of DCIS is at least (Millimeters): 2 mm Architectural Patterns: Cribriform Architectural Patterns: Papillary Nuclear Grade: Grade I (low) Necrosis: Not identified MARGINS Margin Status: All margins negative for DCIS Distance from DCIS to Closest Margin: Greater than: 5 mm Closest Margin(s) to DCIS: All margins negative for DCIS by at least 5 mm. REGIONAL LYMPH NODES Regional Lymph Node Status: Not applicable (no regional lymph nodes submitted or found) PATHOLOGIC STAGE CLASSIFICATION (pTNM, AJCC 8th Edition) Reporting of pT, pN, and (when applicable) pM categories is based on information available to the pathologist at the time the report is issued. As per the AJCC (Chapter 1, 8th Ed.) it is the managingphysician???s responsibility to establish the final pathologic stage based upon all pertinent information, including but potentially not limited to this pathology report. pT Category: pTis (DCIS) pN Category: pN not assigned (no nodes submitted or found) Comment(s): Block for potential future ancillary testing: A4 INVASIVE CARCINOMA OF THE BREAST: Resection INVASIVE CARCINOMA OF THE BREAST: RESECTION - B, C, D, E 8th Edition - Protocol posted: 11/18/2022 SPECIMEN Procedure: Total mastectomy Specimen Laterality: Right TUMOR Tumor Site: Outer Histologic Type: Invasive lobular carcinoma Histologic Grade (Ashutosh Histologic Score): Glandular (Acinar) / Tubular Differentiation: Score 3 Nuclear Pleomorphism: Score 1 Mitotic Rate: Score 1 Overall Grade: Grade 1 (scores of 3, 4 or 5) Tumor Size: Greatest dimension of largest invasive focus (Millimeters): 95 mm Tumor Focality: Single focus of invasive carcinoma Ductal Carcinoma In Situ (DCIS): Not identified Lymphatic and / or Vascular Invasion: Not identified Dermal Lymphatic and / or Vascular Invasion: Not identified Treatment Effect in the Breast: No known presurgical therapy MARGINS Margin Status for Invasive Carcinoma: Invasive carcinoma present at margin Margin(s) Involved by Invasive Carcinoma: Anterior-inferior margin focally positive for invasive carcinoma, 2 mm focus slide [id number] REGIONAL LYMPH NODES Regional Lymph Node Status: : All regional lymph nodes negative for tumor Total Number of Lymph Nodes Examined (sentinel and non-sentinel): 6 Number of [place] Nodes Examined: 2 pTNM CLASSIFICATION (AJCC 8th Edition) pT Category: pT3 pN Category: pN0 Test(s) Performed: Estrogen Receptor (ER) Status: Positive (greater than 10% of cells demonstrate nuclear positivity) Percentage of Cells with Nuclear Positivity: 91-100% 06/04/2023 Other Plastic Surgery appointment where reconstruction was discussed. Per the note, if it is determined that radiation is necessary, they will proceed with delayed reconstruction likely with a latissimus flap. If it is determined that radiation is not necessary, they could certainly consider placing bar manager soon. 06/09/2023 Other Oncotype DX recurrence score result of 10. Distant recurrence risk at 9 years with AI or tamoxifen alone was 3%. Group average absolute chemotherapy benefit was less than 1%. 06/16/2023 Other Medical Oncology consultation with Dr. Ji who did not recommend chemotherapy. Plan for endocrine therapy for 5-10 years. Also consider CDK4 6 inhibition. Requested a DEXA scan and a PET scan prior to her follow-up visit with Medical Oncology. 07/20/2023 - Radiation Therapy Radiation Therapy Treatment Details (Noted on 06/16/2023) Site: Right Chest wall Technique: No technique specified Goal: Curative Planned Treatment Start Date: 07/20/2023 INTERVAL HISTORY: The patient was seen and examined today with Dr. Light. The patient reports doing well overall. She rates her fatigue as 1/10 in severity. She reports somesoreness on the right chest wall, rated 3/10 in severity. She is not taking pain medications. She denies any skin healing concerns. She reports improving range of motion of the arms, but does report t hat the right arm is more limited. She has started physical therapy twice weekly. She denies shortness of breath or cough. She reports that she is planning on reconstructive surgery to be done approximately 6 months following radiation therapy. The patient does have a history of ulcerative colitis.She reports experiencing a flare approximately once per year. She is scheduled for a colonoscopy onFebruary 19. The patient is returning to work part-time now and plans to be full-time by the end ofnext week. She reports working from home. The patient denies a history of prior radiation therapy or inflammatory bowel disease. Her ECOG performance status is 0. REVIEW OF SYSTEMS Review of systems was negative except as documented above. PATIENT REPORTED SYMPTOM SCREEN: FATIGUE (Scale: 0 = no fatigue; 10 = worst fatigue you can imagine): 1 PAIN (Scale: 0 = no pain; 10 = worst pain you can imagine): 3 OVERALL QUALITY OF LIFE (Scale: 0 = as bad as can be; 10 = as good as can be): 10 MEDICAL HISTORY Past Medical History: Diagnosis Date Abnormal Pap Smear Cervix Cancer Breast Ductal In Situ Left Colitis Ulcerative (HCC) Malignant Neoplasm Of Breast Female Right (HCC) Nevi Multiple SURGICAL HISTORY Past Surgical History: Procedure Laterality Date APPENDECTOMY SECTION EXCISION CYST PILONIDAL MASTECTOMY Bilateral FAMILY HISTORY Family History Problem Relation Age of Onset Breast cancer Cousin Maternal SOCIAL HISTORY Social History Socioeconomic History Marital status: Spouse name: Brant Number of children: 2 Tobacco Use Smoking status: Never Smokeless tobacco: Never Substance and Sexual Activity Alcohol use: Not Currently OBJECTIVE BP 104/57 (BP Location: Right arm, Patient Position: Sitting, Cuff Size: Regular) Pulse 83 Temp(!) 35.9 ??C (Temporal) Wt 56.9 kg PHYSICAL EXAMINATION General: Alert and oriented, in no apparent distress. The patient is here today with her , Brant. Heart: Regular rate and rhythm. Lungs: Clear to auscultation bilaterally. DIAGNOSTICS 06/17/2023: Urine test was negative ASSESSMENT / PLAN #1 Stage IA (pT3, pN0(sn), cM0, G1, ER+, AZ+, HER2-) invasive lobular carcinoma of the right breastand stage 0 (pTis (DCIS) cN0, cM0, G1, ER+) ductal carcinoma in situ of the left breast s/p bilateral mastectomies and right axillary sentinel lymph node biopsy on May 27, 2023 with a positive margin I had a discussion with the patient and her regarding her breast cancer diagnosis includinginformation regarding her staging, grade, and hormone receptors. We reviewed her oncologic history as detailed above. We also had a detailed discussion regarding the risks, benefits, and alternativesof radiotherapy in this setting. Dr. Light offered radiation therapy to the right chest wall andregional lymph nodes in 15 or 25 fractions with a boost to the mastectomy scar in 4 or 5 fractions for a total of 19, 25, or 30 fractions. I discussed the logistics as well as the acute and chronic side effects of radiotherapy. The acute side effects are common and include, but are not limited to, fatigue, radiation dermatitis, chest wall swelling and discomfort, and possible sore throat. Long-term side effects include, but are not limited to, skin changes and texture changes of the chest wall, pulmonary scarring, radiation pneumonitis, increased risk of rib fracture with significant trauma, lymphedema, small increased risk of coronary artery disease, very small risk of nerve injury to the brachial plexus, hypothyroidism, and a very small risk of secondary malignancy. The use of Mepitel applied to the skin within the treatmentfield during treatment was discussed and the patient was provided with a printed handout of information. The patient was provided with a written summary of recommendations. Her questions were answered to her verbalized satisfaction. After discussion, the patient verbally stated that she would like to proceed with radiation treatment. She signed consent. We discussed working to improve her arm range of motion prior to CT simulation and radiation treatment. Dr. Light also met with the patient today, please see his attestationfor details. After their discussion, it was agreed for the patient to return for CT simulation on July 13, 2023 with a plan to start treatment after she has her colonoscopy completed on July 19, 2023. A test has been ordered to be performed the same day prior to her CT simulation. The patient was provided with our contact information. She will contact us with questions or concerns. She verbally expressed her understanding of the plan. EDUCATION: Ready to learn, no apparent learning barriers were identified; learning preferences include listening. Explained diagnosis and treatment plan; patient expressed understanding of the content. CONSENT: Discussed the risks, benefits, alternatives, and the necessity of other members of the healthcare team participating in the procedure. All questions answered and consent given. PRIMARY PROVIDER Janusz Cheema M.D. I personally spent 57 minutes in care of the patient today. Time includes both non face to face andface to face patient care. Signed by: Kristel Pozo P.A.-C., M.S. 06/17/2023 11:30 AM HORSE RIDER [facility] [address] [place] [address] E RIDER Associated attestation - Po Light M.D. - 06/17/2023 5:04 PM HORSE RIDER I saw and evaluated the patient and participated in the gardner portions of the service. I reviewed thedocumentation of Kristel Pozo P.A.-C. and agree with the findings and plan. Radha Tee is a 47 y.o. female with stage IA (pT3 (9.5 cm), pN0(sn), cM0, G1, ER+, AZ+, HER2-,Oncotype DX score: 10) invasive lobular carcinoma of the right breast and stage 0 (pTis (2 mm--DCIS) cN0, cM0, G1, ER+) ductal carcinoma in situ of the left breast who was treated with bilateral mastectomies with a 2 mm positive anterior margin on the right and right axillary sentinel lymphnode biopsy (6 nodes, all negative) on May 27, [address] Lee. She has seen Dr. Jenkins who has recommended delayed reconstruction with a latissimus flap following radiotherapy. Oncotype DX returned a low recurrence score of 10, so Dr. Ji did not recommend chemotherapy but planned for 5-10 years of endocrine therapy beginning after radiotherapy. We are asked by Dr. Lee to evaluate the patient for radiotherapy. Her oncologic history is well detailed in 's note. The patient is recovering well from her surgery. She began physical therapy last week and is makingimprovements in her arm range of motion. She has had no lymphedema. The patient also has ulcerativecolitis which is well controlled on balsalazide. She is scheduled for a surveillance colonoscopy for this on July 19, [address] Saeed. Her ECOG performance status is 0. OBJECTIVE BP 104/57 (BP Location: Right arm, Patient Position: Sitting, Cuff Size: Regular) Pulse 83 Temp(!) 35.9 ??C (Temporal) Wt 56.9 kg PHYSICAL EXAM General: Patient is awake, alert, and oriented to person, place, and time. No apparent distress. She is here today with her Brant. Exam was chaperoned by RACHEL Palacios. Lymph: No palpable cervical, supraclavicular, infraclavicular, or axillary adenopathy. Extremities: No upper extremity edema. Wrist circumference was normal bilaterally. Breasts: Surgically absent bilaterally. Examined in the sitting and supine positions. Well-healing mastectomy scars with Steri-Strips in place bilaterally. No palpable masses or seroma. DIAGNOSTICS I reviewed the patient's imaging and pathology reports. ASSESSMENT / PLAN #1 Stage IA (pT3 (9.5 cm), pN0(sn), cM0, R1 (2 mm anterior) G1, ER+, AZ+, HER2- ,Oncotype DX score: 10) invasive lobular carcinoma of the right breast and stage 0 (pTis (2 mm--DCIS) cN0, cM0, G1, ER+)ductal carcinoma in situ of the left breast s/p bilateral mastectomies and right axillary sentinel lymph node biopsy on May 27, 2023 #2 Decreased arm range of motion, improving with physical therapy #3 Ulcerative colitis, well-controlled on balsalazide I had a detailed discussion with the patient and her spouse regarding the risks, benefits, and alternatives of radiotherapy in this setting. I reviewed the NCCN guidelines in formulating my recommendations. I went over these with the patient. We discussed standard fractionated whole breast and regional lymph node radiotherapy to a dose of 5000 cGy in 25 fractions with a boost of 1000 cGy in 5 fractions to the lumpectomy cavity sequentially or as a simultaneous integrated boost to a dose of 5500cGy in 25 fractions. We also discussed the possibility of hypofractionated radiotherapy; however, [place] concerned about the patient's positive margin and young age, so I recommend standard fractionation likely with a breath hold technique for pulmonary and cardiac sparing. I did discuss re-excision of the positive margin with Dr. Lee. She is concerned that given the large size of the tumor and the patient's slender size, it may be difficult to localize the area forre-excision and then wound closure may also be challenging. I agree with the plan for delayed reconstruction. We discussed the fact that typically 6 months is the minimum interval prior to surgery. I discussed the logistics as well as the acute and chronic side effects of treatment in detail. Fora complete listing of these, please see 's note. We did discuss the small risk of radiationpneumonitis (1-3%). She will utilize Mepitel film and mometasone cream to minimize the severity of radiation dermatitis. After this discussion, I provided the patient with a written summary of my recommendations. Her questions and those of her spouse were answered to their verbalized satisfaction. The patient verbally stated that she would like to proceed with treatment and signed the consent form. She is only 3 weeks out from surgery and has had some improvement with physical therapy. I suggest that we wait to proceed with simulation and for a few weeks for her arm range of motion to improve. We also discussed practicing the breath hold technique. She will return for a CT simulation on or around June 29, 2023 after a colonoscopy with Dr. Saeed on June 28, 2023. My thanks to Garrison Holden, Gregory, Darlin, and Anette for the opportunity to participate in this patient's care. I have spent 50 minutes caring for this patient including both [id number] and ffq-gret-ka-face time. Signed by: Po Light M.D. 06/17/23 5:04 PM HORSE RIDER [facility] [place] documented in this encounter Miscellaneous Notes * Addendum Note - Sandrine Wallace, C.N.A. - 06/17/2023 9:30 AM CSTEncounter addended by: Sandrine Wallace C.N.A. on: 06/18/2023 6:56 AM Actions taken: Letter saved E RIDER documented in this encounter Plan of Treatment Upcoming Encounters Date Type Department Care Team (Late st Contact Info) Description 06/29/2023 3:00 PM HORSE RIDER Appointment Department of Radiation Oncology in [place], [place] [address] [place] [address] Po Light M.D. [address] [place] [address] Scheduled Orders Name Type Priority Associated Diagnoses Orde r Schedule Test, Qualitative, Urine Lab Routine 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 Right (HCC) Expected: 07/13/2023, Expires: 09/15/2024 documented as of this encounter Visit Diagnoses Diagnosis 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 Right (HCC)- Primary documented in this encounter
--- OUTSIDE RECORDS SUMMARY | 2023-06-28 06:22 | XMS_ITS | Encounter Summary ---
Author Name Unknown Organization [facility] Address [address] [place] [address] Care Team Providers Care Signwriter Name Role Phone Unavailable Primary Care Provider Unavailabl e Reason for Visit * Radiation Therapy (Routine) - Authorized Specialty Diagnoses / Procedures Referred By Contac t Referred To Contact Diagnoses 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 Right (HCC) Procedures Initial Rad Onc Treatment Planning CT Simulation Po Light M.D. [address] [place] [phone] [facility] Region Referral ID Status Reason Start Date Expiration Date V isits Requested Visits Authorized [id number] Authorized 06/16/2023 06/15/2024 1 1 Encounter Details Date Type Department Care Team (Latest Contact Info) Description 06/17/2023 10:30 AM [facility] Hospital Encounter Department of Radiation Oncology in [place], [place] [address] [place] [phone] Po Light M.D. [address] [place] [phone] Malignant Neoplasm Of Breast Upper Outer Quadrant [...] Date Recorded Dental: Regular Dentist Unknown 06/07/19 24 Sex and Gender Information Value Date Recorded Sex Assigned at Not on file Gender Identity Not on file Sexual Orientation Not on file documented as of this encounter Plan of Treatment Upcoming Encounters Date Type Department Care Team (Late st Contact Info) Description 06/29/2023 3:00 PM CLINICAL TECHNICIAN Appointment Department of Radiation Oncology in [place], [place] [address] [place] [phone] Po Light M.D. [address] [place] [phone] documented as of this encounter Visit Diagnoses Diagnosis 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 Right (HCC)- Primary documented in this encounter
--- NOTE | 2023-06-28 07:47 | W.ANESCHARGE ---
Anesthesia Charges Start Date/Time Anesthesia Start Date: 06/28/23 Anesthesia Start Time: 07:13 Stop Date/Time Anesthesia Stop Date: 06/28/23 Anesthesia Stop Time: 07:58
--- NOTE | 2023-06-28 08:05 | W.ANESCHARGE ---
Anesthesia Charges Start Date/Time Anesthesia Start Date: 06/28/23 Anesthesia Start Time: 07:13 Stop Date/Time Anesthesia Stop Date: 06/28/23 Anesthesia Stop Time: 07:58
== END 2023-06-28 06:21 | disposition home or self-care (01) ==
PROVIDERS: PCP Family Medicine; Visit Provider Internal Medicine Gastroenterology
DX: Z12.11 Encounter for screening for malignant neoplasm of colon (principal); K57.90 Diverticulosis of intestine, part unspecified, without perforation or abscess without bleeding; Z87.19 Personal history of other diseases of the digestive system; R10.13 Epigastric pain; R14.0 Abdominal distension (gaseous)
CPT/HCPCS: 00813; 43239; 45380; 88305; 88307; 88309; 88342; 88360; J2704

== ENCOUNTER 2023-08-19 14:26 | Outpatient (CLI) | payer OTHER, SELFPAY ==
--- NOTE | 2023-08-19 14:30 | XR_ITS ---
Patient: NIKHIL SWANSON Facility:?[facility] RIS Patient ID:?[id number] Site Patient ID:?[id number]. Site :?[id number] Study:?DEXA-Bone Density-08/19/2023 3:17:36 PM Ordering Physician:MAXINE Final Report: DXA BONE MINERAL DENSITY STUDY Reason for exam: Breast cancer. Current height (in): 63. Weight (lb): 125. Menopause age: 47. Ethnicity: White. 1. Have you had a previous hip or vertebral fracture? No. 2. Have you had any fractures during your adult life which did not result from significant trauma (e.g., auto accident)? No. 3. Did either of your parents have a hip fracture? No. 4. Do you smoke? No. 5. Have you ever taken Glucocorticoids? No. 6. Do you have rheumatoid arthritis? No. 7. Do you have secondary osteoporosis? No. 8. Do you drink 3 or more alcoholic drinks per day? No. 9. Are you being treated for osteoporosis? No. 10. Have you ever taken any of the following medications: Actonel, Evista, Fosamax, Miacalcin, Reclast, Boniva, Forteo, HRT (i.e., estrogen/hormone therapy), Protelos, Prolia, Vitamin D, Calcium, other ? please specify. ANSWER: No. 11. Do you have any of the following medical conditions: Anorexia or bulimia, asthma or emphysema, end stage renal disease, hyperparathyroidism, any seizure disorders, cancer, inflammatory bowel diseases, hysterectomy, other ? please specify. ANSWER: Yes, cancer. 12. What was your maximum height (inches)? 64. 13. Do you perform weight bearing exercise regularly? Yes. 14. Do you regularly consume dairy products? Yes. 15. Do you drink caffeinated beverages? Yes. If female: 16. At what age did your period start? 15. 17. Are you premenopausal? No. 18. How many full-term pregnancies have you had? 2. 19. Have you ever missed your period for more than 6 months in a row (not including or menopause)? No. TECHNIQUE: Bone mineral density study was performed using the [employer] FINDINGS: The results of the study expressed as bone mineral density (BMD) are as follows: Lumbar spine L1 to L4: BMD: 0.947 g/cm2. T-score: -0.9. Z-score: -0.4 Neck Left: BMD: 0.766 g/cm2. T-score: -0.7. Z-score: -0.3 Right: BMD: 0.731 g/cm2. T-score: -1.1. Z-score: -0.6 Total Left: BMD: 0.884 g/cm2. T-score: -0.5. Z-score: -0.2 Right: BMD: 0.894 g/cm2. T-score: -0.4. Z-score: -0.1 IMPRESSION: Osteopenia. FRAX 10-year Fracture Risk Major Osteoporotic Fracture: 2.8% Hip Fracture: 0.2% Reported Risk Factors: [place] () Neck BMD=0.731, BMI=22.1 Ang Toledo M.D. Diagnostic Radiologist [email or web address] Transcribed: 12:40 p.mTravon oleary/Dictated by: Ang Toledo MD @ 08/20/2023 9:42:00 AM Signed by:?Ang Toledo MD @08/20/2023 1:19:41 PM (Electronic Signature)
== END 2023-08-19 14:27 | disposition home or self-care (01) ==
LOC: RAD 14:26
PROVIDERS: PCP Family Medicine; Visit Provider Internal Medicine Hematology & Oncology
DX: N95.9 Unspecified menopausal and perimenopausal disorder (principal); M85.88 Other specified disorders of bone density and structure, other site; C50.919 Malignant neoplasm of unspecified site of unspecified female breast
CPT/HCPCS: 77080

== ENCOUNTER 2023-10-06 14:42 | Outpatient (CLI) | payer OTHER, SELFPAY ==
--- OUTSIDE RECORDS SUMMARY | 2023-10-06 14:44 | XMS_ITS ---
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 Past Plans No past plan information found. Radiation Treatments * Plan Last Treated On Elapsed Days Fractions Treated Prescribed Fraction Dose Prescribed Total Dose [id number] 08/20/2023 32 8 of 8 220 cGy 1,760 cGy [id number] 08/10/2023 22 17 of 17 220 cGy 3,740 cGy Reference Point Last Treated On Elapsed Days Session Dose Total Dose [id number] 08/20/2023 32 220 cGy 5,500 cGy
--- OUTSIDE RECORDS SUMMARY | 2023-10-06 14:44 | XMS_ITS ---
Author Name Unknown Organization [facility] Address [address] [place] [address] Care Team Providers Care Nursery Manager Name Role Phone Unavailable Unavailable Unavailable Surgery Details Not on file Complications Check Surgery Details section. Procedure Estimated Blood Loss Check Surgery Details section. Procedure Findings Check Surgery Details section. Procedure Specimens Taken Check Surgery Details section.
--- OUTSIDE RECORDS SUMMARY | 2023-10-06 14:44 | XMS_ITS | Encounter Summary ---
Author Name Unknown Organization [facility] Address [address] [place] [address] Care Team Providers Care Gate Person Name Role Phone Unavailable Primary Care Provider Unavailabl e Encounter Details Date Type Department Care Team (Late st Contact Info) Description 08/20/2023 Documentation Department of Radiation Oncology in [place], [place] [address] [place] [phone] Po Light M.D. [address] [place] [phone] Social History Tobacco Use Types Packs/Day Years Used Date Smoking Tobacco: Never Smokeless Tobacco: Never Alcohol Use Standard Drinks/Week Comments Not Currently 0 (1 standard drink = 0.6 oz pur e alcohol) [facility] Utilities Answer Date Recorded In the past 12 months has e electric, gas, oil, or water [employer] threatened to shut off services in your home? No 07/19/2023 Exercise Vital Sign Answer Date Recorde d On average, how many days pe r week do you engage in moderate to strenuous exercise (like a brisk walk)? 3 days 07/19/2023 On average, how many minutes do you engage in exercise at this level? 30 min 07/19/2023 Hunger Vital Sign Answer Date Recorded Within the past 12 months, y ou worried that your food would run out before you got the money to buy more. Never true 07/19/19 24 Within the past 12 months, t he food you bought just didn't last and you didn't have money to get more. Never true 07/19/2023 PRAPARE - Transportation Answer Date Re corded In the past 12 months, has l ack of transportation kept you from medical appointments or from getting medications? No 07/01 In the past 12 months, has l ack of transportation kept you from meetings, work, or from getting things needed for daily living? No 07/19/2023 Nutrition Answer Date Recorded Nutrition: EVOO Fat Source Unknown 07/19 On average, how many serving s of fruits and vegetables do you eat per day (serving size is equal to 1 cup or approximately the size of a tennis ball)? 0-2 07/19/2023 Dental Answer Date Recorded Dental: Regular Dentist Yes 07/19/19 24 Employment Answer Date Recorded Employment status Employed and actively working without restrictions 07/19/2023 Housing Stability Answer Date Recorded What is your living situation today? I have a [facility] place to live 07/19/2023 Sex and Gender Information Value Date Recorded Sex Assigned at Female 07/19/2023 9:21 AM BINGO CASHIER Gender Identity Female 07/19/2023 9:21 AM BINGO CASHIER Sexual Orientation Straight 07/19/2023 9: 21 AM BINGO CASHIER documented as of this encounter Miscellaneous Notes * Radiation Completion Notes - Ev Mcguire R.N. - 08/20/2023 11:59 PM CDT DIAGNOSIS: 1. 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 ([phone]) Treatment Intent: Curative Concomitant Therapy: None Single Plan Treatment Course: 1xBreast Plan ID Fractions Dose / Fraction (cGy) Dose Treated (cGy) Dose Planned (cGy) First Treatment Last Treatment Elapsed Days [id number] 17 / 17 220 3740 3740 07/19/2023 08/10/2023 22 [id number] 8 / 8 220 1760 1760 08/11/2023 08/20/2023 9 Treatment Site Summary 5500 5500 07/19/2023 08/20/2023 32 Course Summary 07/19/2023 08/20/2023 32 Radiation Modality: Photons CLINICAL SUMMARY Radha Paytontanishamariela completed radiation treatment as planned without interruptions. The courseof treatment was tolerated well and with anticipated side effects. The patient experienced toxicities of grade 2 radiation dermatitis and grade 1 decrement in joint range of motion during radiation treatment. TREATMENT RESPONSE: Response to treatment will be determined by post-treatment imaging and/or laboratory work. RECOMMENDED FOLLOW UP: Primary Medical Oncologist. Dr. Ji Signed by: Ev Mcguire R.N., 09/02/2023 11:15 AM CDT [facility] [address] [place] [address] documented in this encounter Plan of Treatment Not on file documented as of this encounter Visit Diagnoses Diagnosis 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 Right (HCC)- Primary documented in this encounter
--- OUTSIDE RECORDS SUMMARY | 2023-10-06 14:44 | XMS_ITS | Encounter Summary ---
Author Name Unknown Organization [facility] Address [address] [place] [phone] Care Team Providers Care Marker Delivery Name Role Phone Unavailable Primary Care Provider Unavailabl e Reason for Referral * Radiation Therapy (Routine) - Authorized Specialty Diagnoses / Procedures Referred By Contac t Referred To Contact Diagnoses 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 Right (HCC) Procedures Management Visit Po Light M.D. [address] [place] [phone] [facility] Region Referral ID Status Reason Start Date Expiration Date V isits Requested Visits Authorized [id number] Authorized 06/16/2023 06/15/2024 10 10 Reason for Visit * Radiation Therapy (Routine) - Authorized Specialty Diagnoses / Procedures Referred By Lorie mohan Referred To Contact Diagnoses 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 Right (HCC) Procedures Management Visit Po Light M.D. [address] [place] [phone] [facility] Region Referral ID Status Reason Start Date Expiration Date V isits Requested Visits Authorized [id number] Authorized 06/16/2023 06/15/2024 10 10 Encounter Details Date Type Department Care Team (Latest Contact Info) Description 08/18/2023 3:29 PM CDT - 08/26/2023 11:32 PM CDT Hospital Encounter Department of Radiation Oncology in [place], [place] [address] [place] [phone] Po Light M.D. [address] [place] [phone] 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 Right (HCC) Social History Tobacco Use Types Packs/Day Years Used Date Smoking Tobacco: Never Smokeless Tobacco: Never Alcohol Use Standard Drinks/Week Comments Not Currently 0 (1 standard drink = 0.6 oz pur e alcohol) [facility] Utilities Answer Date Recorded In the past 12 months has th e electric, gas, oil, or water company threatened to shut off services in your [...] your living situation today? [facility] 07/19/2023 Sex and Gender Information Value Date Recorded Sex Assigned at Female 07/19/2023 9:21 AM COMPLIANCE PROJECT MANAGER Gender Identity Female 07/19/2023 9:21 AM COMPLIANCE PROJECT MANAGER Sexual Orientation Straight 07/19/2023 9: 21 AM COMPLIANCE PROJECT MANAGER documented as of this encounter Last Filed Vital Signs Vital Sign Reading Time Taken Comments Blood Pressure - - Pulse - - Temperature 36.7 ??C (98.1 ??F) 08/18/2023 3:59 PM CD T Respiratory Rate - - Oxygen Saturation - - Inhaled Oxygen Concentration - - Weight 56.7 kg (125 lb) 08/18/2023 3:59 PM CDT Height - - Body Mass Index - - documented in this encounter Medications at Time of Discharge Medication Sig Dispensed Refills Start Date End Date balsalazide (COLAZAL) 750 mg capsule Take 750 mg by mouth. 08/27/2022 hyoscyamine (LEVSIN) 0.[address] 0.125 mg under the tongue every 4 (four) hours as needed (colitis flare). 10/30/2020 LORazepam (ATIVAN) 1 mg tablet Take 1 mg by mouth daily as needed for anxiety. 06/21/2023 mometasone (ELOCON) 0.1 % cream Apply 1 Application topically 2 (two) times a day. Apply to right neck and upper back during radiotherapy. 45 g 1 06/17/2023 spironolactone (ALDACTONE) 25 mg tablet 08/26/2022 documented as of this encounter Progress Notes * Po Light M.D. - 08/18/2023 4:15 PM CDT SUBJECTIVE CHIEF COMPLAINT/REASON FOR VISIT Evaluation for side effects while receiving radiation treatment for 1. 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 ([phone]) HISTORY OF PRESENT ILLNESS [facility] 47-year-[facility] female with stage IA (pT3, pN0(sn), cM), G1, ER+, [place]+, HER2-) invasive lobular carcinoma of the right breast. She is receiving radiotherapy to the right chest wall and regional lymph nodes. Treatment Course: 1xBreast Plan ID Fractions Dose / Fraction (cGy) Dose Treated (cGy) Dose Planned (cGy) First Treatment Last Treatment Elapsed Days [id number] 220 3740 3740 07/19/2023 08/10/2023 22 [id number] / 220 1320 1760 08/11/2023 08/18/2023 7 Treatment Site Summary 5060 5500 07/19/2023 08/18/2023 30 Course Summary 07/19/2023 08/18/2023 30 Oncology History Malignant Neoplasm Of Breast Upper [...] CORE BIOPSY: 1. Invasive lobular carcinoma a. Lester grade: I of III; Ashutosh score: 5 [...] WITH MARGIN ASSESSMENT: 1. Invasive lobular carcinoma, Lester grade I of III a. Size: at least 95 mm b. Core biopsy site associated with carcinoma 2. Anterior-inferior margin focally positive for invasive carcinoma 3. Breast Ancillary Testing: Performed on prior case ([id number]) a. Hormone Receptors: Estrogen receptor: Positive (95%, [...] Histologic Type: Invasive lobular carcinoma Histologic Grade (Lester Histologic Score): Glandular (Acinar) / Tubular Differentiation: [...] Examined (sentinel and non-sentinel): 6 Number of Floyd Nodes Examined: 2 pTNM CLASSIFICATION (AJCC 8th [...] not necessary, they could certainly consider placing big data software engineer soon. 06/09/2023 Other Oncotype DX recurrence score [...] to her follow-up visit with Medical Oncology. 07/07/2023 - Radiation Therapy Radiation Therapy Treatment Details (Noted on 06/16/2023) Site: Right Chest wall Technique: IMRT Goal: Curative Planned Treatment Start Date: 07/07/2023 The patient was seen and examined today with Dr. Light. The patient reports doing well overall. Patient is applying mometasone cream and lotion to her neckand upper back. She notes increasing chest tightness but denies pain. She has no other issues or concerns at this time. OBJECTIVE Temp 36.7 ??C (Temporal) Wt 56.7 kg PHYSICAL EXAMINATION General: Alert and oriented, in no apparent distress. Skin: Erythema of the skin of the right chest wall and right side of neck. Hyperpigmentation to right axilla. No desquamation. Folliculitis noted to axilla or right neck. Mepitel intact. 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 Mepitel is intact. Patient will leave Mepitel in place for 1-2 weeks post completion of radiation therapy. She will continue to apply mometasone cream and lotion to the skin within the treatment field outside of the Mepitel. Once Mepitel falls off she can apply Mometasone and lotion/Aquaphor to whole treatment field for two weeks post radiation. Discussed with patient that if skin were to open up she should discontinue the use of Mometasone and start vinegar soaks and xeroform dressing changes. I reviewed Moist Skin Reaction pamphletin detail with patient today. I have provided her samples of Pro Net, Xeroform and Telfa today. Also reviewed monthly self breast exam education with patient. Patient will have follow up with Dr. Ji in a few weeks. She also reports that she has scheduled a physical therapy appointment for two weeks post treatment. Follow up with Dr. Light will be on an as needed basis. She will continue with radiation treatment as planned. She will contact our care team with any question or concerns. Toxicities reviewed with Dr. Light. Signed by: Ev Mcguire R.N. 08/18/2023 4:00 PM CDT I saw and evaluated the patient and participated in the gardner portions of the service. I reviewed thedocumentation of Ev Mcguire R.N. and agree with the findings and plan. The patient appears well on exam. She is tolerating treatment well with the anticipated side effects including grade 2 radiation dermatitis and grade 1 decrement in joint range of motion. She will finish treatment as planned and follow-up with Dr. Ji in the near future. I will not schedule a formal follow-up in Radiation Oncology Clinic, but the patient understands that she can contact us at any time with questions or concerns. She verbalized satisfaction with this plan. Signed by: Po Light M.D. 08/26/2023 11:31 PM CDT [facility] [address] [place] [address] documented in this encounter Miscellaneous Notes * Addendum Note - Sandrine Wallace, C.N.A. - 08/18/2023 4:15 PM CDTEncounter addended by: Sandrine Wallace, C.N.A. on: 08/27/2023 7:14 AM Actions taken: Letter saved documented in this encounter Plan of Treatment Scheduled Orders Name Type Priority Associated Diagnoses Orde r Schedule Management Visit Radiation Oncology Routine 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 Right (HCC) Once for 1 Occurrences starting 08/18/2023 until 08/18/2023 documented as of this encounter Visit Diagnoses Diagnosis 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 Right (HCC) documented in this encounter
--- OUTSIDE RECORDS SUMMARY | 2023-10-06 14:44 | XMS_ITS | Clinical Summary ---
Author Name Unknown Organization [facility] Address [address] [place] [address] Care Team Providers Care Supervisor Special Services Name Role Phone Unavailable Primary Care Provider Unavailabl e Source Comments Patient records contain information from all sites at [facility]. For routine questions regarding patient records, call [phone] during business hours, M-F 8:00 AM - 5:00 PM Central Time. Record requests for emergency care only can be directed to [phone] at any time.[facility] Allergies Active Allergy Reactions Criticality Noted Date Comments Azithromycin Rash Low 08/06/2009 Medications Medication Sig Dispensed Refills Start Date End Date Status balsalazide (COLAZAL) 750 mg capsule Take 750 mg by mouth. 08/27/2022 Active spironolactone (ALDACTONE) 25 mg tablet 08/26/2022 Active mometasone (ELOCON) 0.1 % cream Apply 1 Application topically 2 (two) times a day. Apply to right neck and upper back during radiotherapy. 45 g 1 06/17/2023 Active LORazepam (ATIVAN) 1 mg tablet Take 1 mg by mouth daily as needed for anxiety. 06/21/2023 Active hyoscyamine (LEVSIN) 0.[address] 0.125 mg under the tongue every 4 (four) hours as needed (colitis flare). 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 Discharge Disposition: Home or Self Care 08/20/2023 Documentation Department of Radiation Oncology in [address] [address] Po Light M.D. 08/19/2023 3:05 PM CDT - 08/19/2023 11:59 PM CDT Hospital Encounter Department of Radiation Oncology in [address] [address] Po Light M.D. Discharge Disposition: Home or Self Care 08/18/2023 3:29 PM CDT - 08/26/2023 11:32 PM CDT Hospital Encounter Department of Radiation Oncology in [address] [address] Po Light M.D. 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 Right (HCC) 08/18/2023 3:29 PM CDT - 08/18/2023 11:59 PM CDT Hospital Encounter Department of Radiation Oncology in [address] [address] Po Light M.D. Discharge Disposition: Home or Self Care 08/17/2023 3:26 PM CDT - 08/17/2023 11:59 PM CDT Hospital Encounter Department of Radiation Oncology in [address] [address] Po Light M.D. Discharge Disposition: Home or Self Care 08/16/2023 3:28 PM CDT - 08/16/2023 11:59 PM CDT Hospital Encounter Department of Radiation Oncology in [address] [address] Po Light M.D. Discharge Disposition: Home or Self Care 08/13/2023 3:23 PM CDT - 08/13/2023 11:59 PM CDT Hospital Encounter Department of Radiation Oncology in [address] [address] Po Light M.D. Discharge Disposition: Home or Self Care 08/12/2023 3:29 PM CDT - 08/12/2023 11:59 PM CDT Hospital Encounter Department of Radiation Oncology in [address] [address] Po Light M.D. Discharge Disposition: Home or Self Care 08/11/2023 3:29 PM CDT - 08/11/2023 11:59 PM CDT Hospital Encounter Department of Radiation Oncology in [address] [address] Po Light M.D. Discharge Disposition: Home or Self Care 08/10/2023 3:28 PM CDT - 08/10/2023 5:08 PM CDT Hospital Encounter Department of Radiation Oncology in [address] [address] Odette Dolan M.D. 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 Right (HCC) 08/10/2023 3:28 PM CDT - 08/10/2023 11:59 PM CDT Hospital Encounter Department of Radiation Oncology in [address] [address] Po Light M.D. Discharge Disposition: Home or Self Care 08/09/2023 3:28 PM CDT - 08/09/2023 11:59 PM CDT Hospital Encounter Department of Radiation Oncology in [address] [address] Po Light M.D. Discharge Disposition: Home or Self Care 08/06/2023 3:24 PM PHYSICIAN OFFICE NURSE - 08/06/2023 11:59 PM PHYSICIAN OFFICE NURSE Hospital Encounter Department of Radiation Oncology in [address] [address] Po Light M.D. Discharge Disposition: Home or Self Care 08/05/2023 3:26 PM PHYSICIAN OFFICE NURSE - 08/05/2023 11:59 PM PHYSICIAN OFFICE NURSE Hospital Encounter Department of Radiation Oncology in [address] [address] oP Light M.D. Discharge Disposition: Home or Self Care 08/04/2023 3:37 PM PHYSICIAN OFFICE NURSE - 08/04/2023 11:59 PM PHYSICIAN OFFICE NURSE Hospital Encounter Department of Radiation Oncology in [address] [address] Po Light M.D. Discharge Disposition: Home or Self Care 08/04/2023 2:56 PM PHYSICIAN OFFICE NURSE - 08/04/2023 3:36 PM PHYSICIAN OFFICE NURSE Hospital Encounter Department of Radiation Oncology in [address] [address] Po Light M.D. 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 Right (HCC) 08/03/2023 3:29 PM PHYSICIAN OFFICE NURSE - 08/03/2023 11:59 PM PHYSICIAN OFFICE NURSE Hospital Encounter Department of Radiation Oncology in [address] [address] Po Light M.D. Discharge Disposition: Home or Self Care 08/02/2023 3:29 PM PHYSICIAN OFFICE NURSE - 08/02/2023 11:59 PM PHYSICIAN OFFICE NURSE Hospital Encounter Department of Radiation Oncology in [address] [address] Po Light M.D. Discharge Disposition: Home or Self Care 07/30/2023 3:27 PM PHYSICIAN OFFICE NURSE - 07/30/2023 11:59 PM PHYSICIAN OFFICE NURSE Hospital Encounter Department of Radiation Oncology in [address] [address] Po Light M.D. Discharge Disposition: Home or Self Care 07/29/2023 3:27 PM PHYSICIAN OFFICE NURSE - 07/29/2023 11:59 PM PHYSICIAN OFFICE NURSE Hospital Encounter Department of Radiation Oncology in [address] [address] Po Light M.D. Discharge Disposition: Home or Self Care 07/28/2023 3:24 PM PHYSICIAN OFFICE NURSE - 07/28/2023 11:59 PM PHYSICIAN OFFICE NURSE Hospital Encounter Department of Radiation Oncology in [address] [address] Po Light M.D. Discharge Disposition: Home or Self Care 07/28/2023 2:56 PM PHYSICIAN OFFICE NURSE - 07/28/2023 3:23 PM PHYSICIAN OFFICE NURSE Hospital Encounter Department of Radiation Oncology in [address] [address] Po Light M.D. 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 Right (HCC) 07/27/2023 3:27 PM PHYSICIAN OFFICE NURSE - 07/27/2023 11:59 PM PHYSICIAN OFFICE NURSE Hospital Encounter Department of Radiation Oncology in [address] [address] Po Light M.D. Discharge Disposition: Home or Self Care 07/26/2023 3:28 PM PHYSICIAN OFFICE NURSE - 07/26/2023 4:12 PM PHYSICIAN OFFICE NURSE Hospital Encounter Department of Radiation Oncology in [address] [address] Po Light M.D. Grieman, Kari A, RTravonNTravon 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 Right (HCC) (Primary Dx) 07/26/2023 3:26 PM PHYSICIAN OFFICE NURSE - 07/26/2023 3:27 PM PHYSICIAN OFFICE NURSE Hospital Encounter Department of Radiation Oncology in [address] [address] Po Light M.D. Discharge Disposition: Home or Self Care 07/23/2023 3:29 PM PHYSICIAN OFFICE NURSE - 07/23/2023 11:59 PM PHYSICIAN OFFICE NURSE Hospital Encounter Department of Radiation Oncology in [address] [address] Po Light M.D. Discharge Disposition: Home or Self Care 07/23/2023 2:55 PM PHYSICIAN OFFICE NURSE - 07/26/2023 9:07 AM PHYSICIAN OFFICE NURSE Hospital Encounter Department of Radiation Oncology in [address] [address] Po Light M.D. Grieman, Kari A, RTravonNTravon 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 Right (HCC) Discharge Disposition: Home or Self Care 07/22/2023 3:25 PM PHYSICIAN OFFICE NURSE - 07/22/2023 11:59 PM PHYSICIAN OFFICE NURSE Hospital Encounter Department of Radiation Oncology in [address] [address] Po Light M.D. Discharge Disposition: Home or Self Care 07/21/2023 3:29 PM PHYSICIAN OFFICE NURSE - 07/21/2023 5:27 PM PHYSICIAN OFFICE NURSE Hospital Encounter Department of Radiation Oncology in [address] [address] Po Light M.D. 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 Right (HCC) 07/21/2023 3:29 PM PHYSICIAN OFFICE NURSE - 07/21/2023 11:59 PM PHYSICIAN OFFICE NURSE Hospital Encounter Department of Radiation Oncology in [address] [address] Po Light M.D. Discharge Disposition: Home or Self Care 07/20/2023 3:45 PM PHYSICIAN OFFICE NURSE - 07/20/2023 11:59 PM PHYSICIAN OFFICE NURSE Hospital Encounter Department of Radiation Oncology in [address] [address] Po Light M.D. Discharge Disposition: Home or Self Care 07/20/2023 3:24 PM PHYSICIAN OFFICE NURSE - 07/20/2023 3:44 PM PHYSICIAN OFFICE NURSE Hospital Encounter Department of Radiation Oncology in [address] [place] [address] Po Light M.D. Maddy Avila R.N. 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 Right (HCC) (Primary Dx) 07/19/2023 3:29 PM PHYSICIAN OFFICE NURSE - 07/19/2023 11:59 PM PHYSICIAN OFFICE NURSE Hospital Encounter Department of Radiation Oncology in [address] [address] Po Light M.D. Discharge Disposition: Home or Self Care from Last 3 Months Family History Medical History Relation Name Comments Breast cancer Cousin Maternal Relation Name Status Comments Cousin Social History Tobacco Use Types Packs/Day Years Used Date Smoking Tobacco: Never Smokeless Tobacco: Never Alcohol Use Standard Drinks/Week Comments Not Currently 0 (1 standard drink = 0.6 oz pur e alcohol) [facility] [employer] Answer Date Recorded In the past 12 months has [facility], gas, oil, or water [employer] threatened to shut off services in your [...] Date Recorded Dental: Regular Dentist Yes 07/19/19 Employment Answer Date Recorded Employment status Employed and actively working without restrictions 07/19/2023 Housing Stability Answer Date Recorded What is your living situation today? I have a [facility] place to live 07/19/2023 Sex and Gender Information Value Date Recorded Sex Assigned at Female 07/19/2023 9:21 AM PHYSICIAN OFFICE NURSE Gender Identity Female 07/19/2023 9:21 AM PHYSICIAN OFFICE NURSE Sexual Orientation Straight 07/19/2023 9: 21 AM PHYSICIAN OFFICE NURSE Last Filed Vital Signs Vital Sign Reading Time Taken Comments Blood Pressure 104/57 06/17/2023 9:23 AM PHYSICIAN OFFICE NURSE Pulse 83 06/17/2023 9:23 AM PHYSICIAN OFFICE NURSE Temperature 36.7 ??C (98.1 ??F) 08/18/2023 3:59 PM CD T Respiratory Rate - - Oxygen Saturation - - Inhaled Oxygen Concentration - - Weight 56.7 kg (125 lb) 08/18/2023 3:59 PM CDT Height - - Body Mass Index - - Plan of Treatment Health Maintenance Due Date Last Done Comments CT Colonography 1977 Cologuard 1977 FIT 1977 Fasting Glucose for Diabetes Screening 1977 HIV Screening 1977 Hepatitis C Screening 1977 Lipid (Cholesterol) Screening 1977 Pneumococcal vaccine (0-64 years) (1 of 2 - PCV) 10/18/1983 Hepatitis B Vaccines (1 of 3 - 19+ 3-dose series) 1996 Zoster Vaccines (1 of 2) 1996 COVID-19 Vaccine (3 - Moderna risk series) 08/21/2021 07/24/2021, 06/30/2021 Cervical Cancer Screening 02/28/2022 02/28/2019 Depression Screening (Annual PHQ-2) 05/31/2023 DTaP,Tdap,and Td Vaccines (3 - Td or Tdap) 02/24/2028 02/23/2018, 04/20/2008 Colonoscopy 06/28/2033 06/28/2023 Colorectal Cancer Screening 06/28/2033 Mammogram Discontinued 05/27/2023, 05/01, 05/21/2023, Additional history exists Influenza Vaccine Completed 06/21/2023, , 03/17/2019, Additional history exists HPV Vaccines Aged Out No longer eligi ble based on patient's age to complete this topic Procedures Procedure Name Priority Date/Time Associated Diagnosis Comments ARIA COURSE COMPLETE TREATMENT INFORMATION Routine 08/20/2023 3:49 PM CDT ARIA DAILY TREATMENT INFORMATION Routine 08/20/2023 3:49 PM CDT ARIA DAILY TREATMENT INFORMATION Routine 08/19/2023 3:23 PM CDT ARIA DAILY TREATMENT INFORMATION Routine 08/18/2023 3:54 PM CDT ARIA DAILY TREATMENT INFORMATION Routine 08/17/2023 3:56 PM CDT ARIA DAILY TREATMENT INFORMATION Routine 08/16/2023 3:53 PM CDT ARIA DAILY TREATMENT INFORMATION Routine 08/13/2023 3:42 PM CDT ARIA DAILY TREATMENT INFORMATION Routine 08/12/2023 3:53 PM CDT ARIA DAILY TREATMENT INFORMATION Routine 08/11/2023 3:52 PM CDT ARIA DAILY TREATMENT INFORMATION Routine 08/10/2023 3:57 PM CDT ARIA DAILY TREATMENT INFORMATION Routine 08/09/2023 3:58 PM CDT ARIA DAILY TREATMENT INFORMATION Routine 08/06/2023 3:40 PM PHYSICIAN OFFICE NURSE ARIA DAILY TREATMENT INFORMATION Routine 08/05/2023 4:04 PM PHYSICIAN OFFICE NURSE ARIA DAILY TREATMENT INFORMATION Routine 08/04/2023 3:51 PM PHYSICIAN OFFICE NURSE ARIA DAILY TREATMENT INFORMATION Routine 08/03/2023 3:48 PM PHYSICIAN OFFICE NURSE ARIA DAILY TREATMENT INFORMATION Routine 08/02/2023 3:49 PM PHYSICIAN OFFICE NURSE ARIA DAILY TREATMENT INFORMATION Routine 07/30/2023 3:45 PM PHYSICIAN OFFICE NURSE ARIA DAILY TREATMENT INFORMATION Routine 07/29/2023 4:05 PM PHYSICIAN OFFICE NURSE ARIA DAILY TREATMENT INFORMATION Routine 07/28/2023 4:02 PM PHYSICIAN OFFICE NURSE ARIA DAILY TREATMENT INFORMATION Routine 07/27/2023 4:05 PM PHYSICIAN OFFICE NURSE ARIA DAILY TREATMENT INFORMATION Routine 07/26/2023 3:53 PM PHYSICIAN OFFICE NURSE ARIA DAILY TREATMENT INFORMATION Routine 07/23/2023 3:52 PM PHYSICIAN OFFICE NURSE ARIA DAILY TREATMENT INFORMATION Routine 07/22/2023 4:17 PM PHYSICIAN OFFICE NURSE ARIA DAILY TREATMENT INFORMATION Routine 07/21/2023 3:49 PM PHYSICIAN OFFICE NURSE ARIA DAILY TREATMENT INFORMATION Routine 07/20/2023 4:50 PM PHYSICIAN OFFICE NURSE ARIA DAILY TREATMENT INFORMATION Routine 07/19/2023 4:38 PM PHYSICIAN OFFICE NURSE ARIA COURSE COMPLETE TREATMENT INFORMATION Routine 07/15/2023 2:22 PM PHYSICIAN OFFICE NURSE OUTSIDE MG MAMMOGRAM Routine 05/27/2023 1:35 PM PHYSICIAN OFFICE NURSE from Last 3 Months or Most Recently Relevant to Health Maintenance Results * Aria Course Complete Treatment Information (08/20/2023 3:49 PM CDT) Only the most recent of2 resultswithin the time period is included. Course ID 1xBreast [facility]ARBRANCH ARIA Course Start Date 4 07:29 CDT [facility] Course End Date 4 15:32 CDT [facility] First Treatment Date 4 16:28 CDT [facility] Last Treatment Date 4 15:49 CDT [facility] Treatment Elapsed Days 32 G[facility] ARIA Reference Point [id number] [facility]A Dosage Given to Date cGy 5500 GUTIERREZ ARIA Plan ID [id number] [facility]UTIERREZ ARIA Fractions Treated to Date 8 GUTIERREZ ARIA Planned Total Fractions 8 GUTIERREZ ARIA Prescribed Dose Per Fraction 220 GUTIERREZ ARIA Prescription Dose in cGy 1760 GUTIERREZ ARIA Plan Primary Reference Point [id number] [facility]RE[facility] ARIA Plan ID [id number] GUTIERREZ ARIA Fractions Treated to Date 17 GUTIERREZ ARIA Planned Total Fractions 17 GUTIERREZ ARIA Prescribed Dose Per Fraction 220 GUTIERREZ ARIA Prescription Dose in cGy 3740 GUTIERREZ ARIA Plan Primary Reference Point [id number] G[facility]IERREZ ARIA 08/20/2023 3:49 PM CDT Provider Not In System RADIATION ONCOLOG Y ORDERABLES BRENDA FRANCOIS na * Aria Daily Treatment Information (08/20/2023 3:49 PM CDT) Only the most recent of25 resultswithin the time period is included. Course ID 1xBreast GUTIERREZ ARIA Course Start Date 4 07:29 CDT G[facility] ARIA First Treatment Date 4 16:28 CDT G[facility] ARIA Last Treatment Date 4 15:49 CDT [facility] ARIA Treatment Elapsed Days 32 GUTIERREZ ARIA Reference Point [id number] GUTIERREZ ARIA Dosage Given to Date cGy 5500 GUTIERREZ ARIA Session Dosage Given 220 GUTIERREZ ARIA Plan ID [id number] GUTIERREZ ARIA Fractions Treated to Date 8 GUTIERREZ ARIA Planned Total Fractions 8 GUTIERREZ ARIA Prescribed Dose Per Fraction 220 GUTIERREZ ARIA Prescription Dose in cGy 1760 GUTIERREZ ARIA Plan Primary Reference Point [id number] GUTIERREZ ARIA 08/20/2023 3:49 PM CDT Provider Not In System RADIATION ONCOLOG Y ORDERABLES BRENDA FRANCOIS na * MM surgical specimen LT-Outside Mammogram (05/27/2023 1:35 PM PHYSICIAN OFFICE NURSE) Narrative [facility] - 06/07/2023 11:49 AM PHYSICIAN OFFICE NURSE This order has been created and auto-finalized to support the import of outside images. If available, original interpretation can be found on the Media Tab in Chart Review, in Document Viewer, or as an image in QREADS. If a re-interpretation or overread is required please follow defined workflow. ?? Provider Not In System IMG BI PROCEDURES [facility] NA from Last 3 Months or Most Recently Relevant to Health Maintenance
--- OUTSIDE RECORDS SUMMARY | 2023-10-06 14:44 | XMS_ITS | Referral Summary ---
Author Name Unknown Organization [facility] Address [address] [place] [address] Care Team Providers Care Dock Manager Name Role Phone Unavailable Primary Care Provider Unavailabl e Source Comments Patient records contain information from all sites at [facility]. For routine questions regarding patient records, call [phone] during business hours, M-F 8:00 AM - 5:00 PM Central Time. Record requests for emergency care only can be directed to [phone] at any time.[facility] Encounters Date Type Department Care Team Description 08/18/2023 3:29 PM CDT - 08/26/2023 11:32 PM CDT Hospital Encounter Department of Radiation Oncology in [address] [address] Po Light M.D. 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 Right (HCC) 08/20/2023 Documentation Department of Radiation Oncology in [address] [address] Po Light M.D. 08/20/2023 3:26 PM CDT - 08/20/2023 11:59 PM CDT Hospital Encounter Department of Radiation Oncology in [address] [address] Po Light M.D. Discharge Disposition: Home or Self Care 08/19/2023 3:05 PM CDT - 08/19/2023 11:59 PM CDT Hospital Encounter Department of Radiation Oncology in [address] [address] Po Light M.D. Discharge Disposition: Home or Self Care 08/18/2023 3:29 PM CDT - 08/18/2023 11:59 PM CDT Hospital Encounter Department of Radiation Oncology in [address] [address] Po Light M.D. Discharge Disposition: Home or Self Care 08/17/2023 3:26 PM CDT - 08/17/2023 11:59 PM CDT Hospital Encounter Department of Radiation Oncology in [address] [address] Po Light M.D. Discharge Disposition: Home or Self Care 08/16/2023 3:28 PM CDT - 08/16/2023 11:59 PM CDT Hospital Encounter Department of Radiation Oncology in [address] [address] Po Light M.D. Discharge Disposition: Home or Self Care 08/13/2023 3:23 PM CDT - 08/13/2023 11:59 PM CDT Hospital Encounter Department of Radiation Oncology in [address] [address] Po Light M.D. Discharge Disposition: Home or Self Care 08/12/2023 3:29 PM CDT - 08/12/2023 11:59 PM CDT Hospital Encounter Department of Radiation Oncology in [address] [address] Po Light M.D. Discharge Disposition: Home or Self Care 08/11/2023 3:29 PM CDT - 08/11/2023 11:59 PM CDT Hospital Encounter Department of Radiation Oncology in [address] [address] Po Light M.D. Discharge Disposition: Home or Self Care 08/10/2023 3:28 PM CDT - 08/10/2023 5:08 PM CDT Hospital Encounter Department of Radiation Oncology in [address] [address] Odette oDlan M.D. 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 Right (HCC) 08/10/2023 3:28 PM CDT - 08/10/2023 11:59 PM CDT Hospital Encounter Department of Radiation Oncology in [address] [address] Po Light M.D. Discharge Disposition: Home or Self Care 08/09/2023 3:28 PM CDT - 08/09/2023 11:59 PM CDT Hospital Encounter Department of Radiation Oncology in [address] [address] Po Light M.D. Discharge Disposition: Home or Self Care 08/06/2023 3:24 PM LABELING STRATEGIST - 08/06/2023 11:59 PM LABELING STRATEGIST Hospital Encounter Department of Radiation Oncology in [address] [address] Po Light M.D. Discharge Disposition: Home or Self Care 08/05/2023 3:26 PM LABELING STRATEGIST - 08/05/2023 11:59 PM LABELING STRATEGIST Hospital Encounter Department of Radiation Oncology in [address] [address] Po Light M.D. Discharge Disposition: Home or Self Care 08/04/2023 2:56 PM LABELING STRATEGIST - 08/04/2023 3:36 PM LABELING STRATEGIST Hospital Encounter Department of Radiation Oncology in [address] [address] Po Light M.D. 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 Right (HCC) 08/04/2023 3:37 PM LABELING STRATEGIST - 08/04/2023 11:59 PM LABELING STRATEGIST Hospital Encounter Department of Radiation Oncology in [address] [address] Po Light M.D. Discharge Disposition: Home or Self Care 08/03/2023 3:29 PM LABELING STRATEGIST - 08/03/2023 11:59 PM LABELING STRATEGIST Hospital Encounter Department of Radiation Oncology in [address] [address] Po Light M.D. Discharge Disposition: Home or Self Care 08/02/2023 3:29 PM LABELING STRATEGIST - 08/02/2023 11:59 PM LABELING STRATEGIST Hospital Encounter Department of Radiation Oncology in [address] [address] Po Light M.D. Discharge Disposition: Home or Self Care 07/30/2023 3:27 PM LABELING STRATEGIST - 07/30/2023 11:59 PM LABELING STRATEGIST Hospital Encounter Department of Radiation Oncology in [address] [address] Po Light M.D. Discharge Disposition: Home or Self Care 07/29/2023 3:27 PM LABELING STRATEGIST - 07/29/2023 11:59 PM LABELING STRATEGIST Hospital Encounter Department of Radiation Oncology in [address] [address] Po Light M.D. Discharge Disposition: Home or Self Care 07/28/2023 2:56 PM LABELING STRATEGIST - 07/28/2023 3:23 PM LABELING STRATEGIST Hospital Encounter Department of Radiation Oncology in [address] [address] Po Light M.D. 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 Right (HCC) 07/28/2023 3:24 PM LABELING STRATEGIST - 07/28/2023 11:59 PM LABELING STRATEGIST Hospital Encounter Department of Radiation Oncology in [address] [address] Po Light M.D. Discharge Disposition: Home or Self Care 07/27/2023 3:27 PM LABELING STRATEGIST - 07/27/2023 11:59 PM LABELING STRATEGIST Hospital Encounter Department of Radiation Oncology in [address] [address] Leenstra, Po L, M.D. Discharge Disposition: Home or Self Care 07/26/2023 3:28 PM LABELING STRATEGIST - 07/26/2023 4:12 PM LABELING STRATEGIST Hospital Encounter Department of Radiation Oncology in [address] [address] Po Light M.D. Grieman, Kari A, R.N. 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 Right (HCC) (Primary Dx) 07/26/2023 3:26 PM LABELING STRATEGIST - 07/26/2023 3:27 PM LABELING STRATEGIST Hospital Encounter Department of Radiation Oncology in [address] [address] Po Light M.D. Discharge Disposition: Home or Self Care 07/23/2023 2:55 PM LABELING STRATEGIST - 07/26/2023 9:07 AM LABELING STRATEGIST Hospital Encounter Department of Radiation Oncology in [address] [address] Po Light M.D. Grieman, Kari A R.NTravon 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 Right (HCC) Discharge Disposition: Home or Self Care 07/23/2023 3:29 PM LABELING STRATEGIST - 07/23/2023 11:59 PM LABELING STRATEGIST Hospital Encounter Department of Radiation Oncology in [address] [address] Po Light M.D. Discharge Disposition: Home or Self Care 07/22/2023 3:25 PM LABELING STRATEGIST - 07/22/2023 11:59 PM LABELING STRATEGIST Hospital Encounter Department of Radiation Oncology in [address] [address] oP Light M.D. Discharge Disposition: Home or Self Care 07/21/2023 3:29 PM LABELING STRATEGIST - 07/21/2023 5:27 PM LABELING STRATEGIST Hospital Encounter Department of Radiation Oncology in [address] [address] Po Light M.D. 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 Right (HCC) 07/21/2023 3:29 PM LABELING STRATEGIST - 07/21/2023 11:59 PM LABELING STRATEGIST Hospital Encounter Department of Radiation Oncology in [address] [address] Po Light M.D. Discharge Disposition: Home or Self Care 07/20/2023 3:24 PM LABELING STRATEGIST - 07/20/2023 3:44 PM LABELING STRATEGIST Hospital Encounter Department of Radiation Oncology in [address] [address] Po Light M.D. Grieman, Kari A, RTravonN. 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 Right (HCC) (Primary Dx) 07/20/2023 3:45 PM LABELING STRATEGIST - 07/20/2023 11:59 PM LABELING STRATEGIST Hospital Encounter Department of Radiation Oncology in [address] [address] Po Light M.D. Discharge Disposition: Home or Self Care 07/19/2023 3:29 PM LABELING STRATEGIST - 07/19/2023 11:59 PM LABELING STRATEGIST Hospital Encounter Department of Radiation Oncology in [address] [address] Po Light M.D. Discharge Disposition: Home or Self Care from Last 3 Months Allergies Active Allergy Reactions Criticality Noted Date [...] 05/27/2023:Stage 0(pTis (DCIS), cN0, cM0, G1, ER+, SD: Not Assessed, HER2: Not Assessed) - Unsigned 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 Right 06/09/2023 Cancer Staging:Pathologic stage from 05/27/2023:Stage IA(pT3, pN0(sn), cM0, G1, ER+, SD+, HER2-, Oncotype DX score: 10) - Unsigned Pathologic: Unsigned Social History Tobacco Use Types Packs/Day Years Used Date Smoking Tobacco: Never Smokeless Tobacco: Never Alcohol Use Standard Drinks/Week Comments Not Currently 0 (1 standard drink = 0.6 oz pur e alcohol) [facility] [employer] Answer Date Recorded In the past 12 months has e [employer], gas, oil, or water [employer] threatened to shut off services in your [...] your living situation today? I have a [facility] place to live 07/19/2023 Sex and Gender Information Value Date Recorded Sex Assigned at Female 07/19/2023 9:21 AM LABELING STRATEGIST Gender Identity Female 07/19/2023 9:21 AM LABELING STRATEGIST Sexual Orientation Straight 07/19/2023 9: 21 AM LABELING STRATEGIST Last Filed Vital Signs Vital Sign Reading Time Taken Comments Blood Pressure 104/57 06/17/2023 9:23 AM LABELING STRATEGIST Pulse 83 06/17/2023 9:23 AM LABELING STRATEGIST Temperature 36.7 ??C (98.1 ??F) 08/18/2023 3:59 PM CD T Respiratory Rate - - Oxygen Saturation - - Inhaled Oxygen Concentration - - Weight 56.7 kg (125 lb) 08/18/2023 3:59 PM CDT Height - - Body Mass Index - - Plan of Treatment Not on file Procedures Procedure Name Priority Date/Time Associated Diagnosis [...] DAILY TREATMENT INFORMATION Routine 08/06/2023 3:40 PM LABELING STRATEGIST ARIA DAILY TREATMENT INFORMATION Routine 08/05/2023 4:04 PM LABELING STRATEGIST ARIA DAILY TREATMENT INFORMATION Routine 08/04/2023 3:51 PM LABELING STRATEGIST ARIA DAILY TREATMENT INFORMATION Routine 08/03/2023 3:48 PM LABELING STRATEGIST ARIA DAILY TREATMENT INFORMATION Routine 08/02/2023 3:49 PM LABELING STRATEGIST ARIA DAILY TREATMENT INFORMATION Routine 07/30/2023 3:45 PM LABELING STRATEGIST ARIA DAILY TREATMENT INFORMATION Routine 07/29/2023 4:05 PM LABELING STRATEGIST ARIA DAILY TREATMENT INFORMATION Routine 07/28/2023 4:02 PM LABELING STRATEGIST ARIA DAILY TREATMENT INFORMATION Routine 07/27/2023 4:05 PM LABELING STRATEGIST ARIA DAILY TREATMENT INFORMATION Routine 07/26/2023 3:53 PM LABELING STRATEGIST ARIA DAILY TREATMENT INFORMATION Routine 07/23/2023 3:52 PM LABELING STRATEGIST ARIA DAILY TREATMENT INFORMATION Routine 07/22/2023 4:17 PM LABELING STRATEGIST ARIA DAILY TREATMENT INFORMATION Routine 07/21/2023 3:49 PM LABELING STRATEGIST ARIA DAILY TREATMENT INFORMATION Routine 07/20/2023 4:50 PM LABELING STRATEGIST ARIA DAILY TREATMENT INFORMATION Routine 07/19/2023 4:38 PM LABELING STRATEGIST ARIA COURSE COMPLETE TREATMENT INFORMATION Routine 07/15/2023 2:22 PM LABELING STRATEGIST OUTSIDE MG MAMMOGRAM Routine 05/27/2023 1:35 PM LABELING STRATEGIST from Last 3 Months or Most Recently Relevant to Health Maintenance Results * Aria Course Complete Treatment Information (08/20/2023 3:49 PM CDT) Only the most recent of2 resultswithin the time period is included. Course ID [id number] GUTIERREZ ARIA Course Start Date 4 07:29 CDT GUTIERREZ ARIA Course End Date 4 15:32 CDT GUTIERREZ ARIA First Treatment Date 4 16:28 CDT GUTIERREZ ARIA Last Treatment Date 4 15:49 CDT GUTIERREZ ARIA Treatment Elapsed Days 32 GUTIERREZ ARIA Reference Point [id number] GUTIERREZ ARIA Dosage Given to Date cGy 5500 GUTIERREZ ARIA Plan ID [id number] R GUTIERREZ ARIA Fractions Treated to Date 8 GUTIERREZ ARIA Planned Total Fractions 8 GUTIERREZ ARIA Prescribed Dose Per Fraction 220 GUTIERREZ ARIA Prescription Dose in cGy 1760 GUTIERREZ ARIA Plan Primary Reference Point [id number] GUTIERREZ ARIA Plan ID [id number] GUTIERREZ ARIA Fractions Treated to Date 17 GUTIERREZ ARIA Planned Total Fractions 17 GUTIERREZ ARIA Prescribed Dose Per Fraction 220 GUTIERREZ ARIA Prescription Dose in cGy 3740 GUTIERREZ ARIA Plan Primary Reference Point [id number] GUTIERREZ ARIA 08/20/2023 3:49 PM CDT Provider [...] Elapsed Days 32 GUTIERREZ ARIA Reference Point [id number] GUTIERREZ ARIA Dosage Given to Date cGy 5500 GUTIERREZ ARIA Session Dosage Given 220 GUTIERREZ ARIA Plan ID [id number] R GUTIERREZ ARIA Fractions Treated to Date 8 GUTIERREZ ARIA Planned Total Fractions 8 GUTIERREZ ARIA Prescribed Dose Per Fraction 220 GUTIERREZ ARIA Prescription Dose in cGy 1760 GUTIERREZ ARIA Plan Primary Reference Point [id number] GUTIERREZ ARIA 08/20/2023 3:49 PM CDT Provider Not In System RADIATION ONCOLOG Y ORDERABLES BRENDA FRANCOIS na * MM surgical specimen LT-Outside Mammogram (05/27/2023 1:35 PM LABELING STRATEGIST) Narrative IIMS - 06/07/2023 11:49 AM LABELING STRATEGIST This order has been created and auto-finalized to support the import of outside images. If available, original interpretation can be found on the Media Tab in Chart Review, in Document Viewer, or as an image in QREADS. If a re-interpretation or overread is required please follow defined workflow. ?? Provider Not In System IMG BI PROCEDURES Performing Organization Address [facility] de Phone Number [phone] NA from Last 3 Months or Most Recently Relevant to Health Maintenance
--- OUTSIDE RECORDS SUMMARY | 2023-10-06 14:44 | XMS_ITS | Encounter Summary ---
Author Name Unknown Organization [facility] Address [address] [place] [address] Care Team Providers Care Automation Controls Engineer Name Role Phone Unavailable Primary Care Provider Unavailabl e Reason for Visit * Radiation Therapy (Routine) - Authorized Specialty Diagnoses / Procedures Referred By Contac t Referred To Contact Diagnoses 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 Right (HCC) Procedures Prior Auth Rad Tx OR IMRT SIMPLE IMRT Breast Po Light M.D. [address] [place] [phone] [facility] Referral ID Status Reason Start Date Expiration Date V isits Requested Visits Authorized [id number] Authorized 06/28/2023 06/15/2024 30 30 Encounter Details Date Type Department Care Team (Latest Contact Info) Description 08/20/2023 3:26 PM CDT - 08/20/2023 11:59 PM CDT Hospital Encounter Department of Radiation Oncology in [place], [place] [address] [place] [address] Po Light M.D. [address] [place] [phone] Discharge Disposition: Home or Self Care Social History Tobacco Use Types Packs/Day Years Used Date Smoking Tobacco: Never Smokeless Tobacco: Never Alcohol Use Standard Drinks/Week Comments Not Currently 0 (1 standard drink = 0.6 oz pur e alcohol) [facility] Utilities Answer Date Recorded In the past 12 months has e [employer], gas, oil, or water company threatened to [...] your living situation today? I have a [facility] place to live 07/19/2023 Sex and Gender Information Value Date Recorded Sex Assigned at Female 07/19/2023 9:21 AM INTELLIGENCE DIRECTOR Gender Identity Female 07/19/2023 9:21 AM INTELLIGENCE DIRECTOR Sexual Orientation Straight 07/19/2023 9: 21 AM INTELLIGENCE DIRECTOR documented as of this encounter Medications at Time of Discharge [...] tablet 08/26/2022 documented as of this encounter Plan of Treatment Not on file documented as of this encounter Visit Diagnoses Not on filedocumented in this encounter
--- OUTSIDE RECORDS SUMMARY | 2023-10-06 14:45 | XMS_ITS | Encounter Summary ---
Author Name Unknown Organization [facility] Address [address] [place] [address] Care Team Providers Care Medical Advisor Name Role Phone Unavailable Primary Care Provider Unavailabl e Reason for Visit * Radiation Therapy (Routine) - Authorized Specialty Diagnoses / Procedures Referred By Contac t Referred To Contact Diagnoses 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 Right (HCC) Procedures Prior Auth Rad Tx [place] IMRT SIMPLE IMRT Breast Po Light M.D. [address] [place] [phone] [facility] Referral ID Status Reason Start Date Expiration Date V isits Requested Visits Authorized [id number] Authorized 06/28/2023 06/15/2024 30 30 Encounter Details Date Type Department Care Team (Latest Contact Info) Description 08/17/2023 3:26 PM CDT - 08/17/2023 11:59 PM CDT Hospital Encounter Department of Radiation Oncology in [place], [place] [address] [place] [phone] Po Light M.D. [address] [place] [phone] Discharge Disposition: Home or Self Care Social History Tobacco Use Types Packs/Day Years Used Date Smoking Tobacco: Never Smokeless Tobacco: Never Alcohol Use Standard Drinks/Week Comments Not Currently 0 (1 standard drink = 0.6 oz pur e alcohol) [facility] Utilities Answer Date Recorded In the past 12 months has e [employer], gas, oil, or water company threatened to [...] your living situation today? I have a [facility] place to live 07/19/2023 Sex and Gender Information Value Date Recorded Sex Assigned at Female 07/19/2023 9:21 AM DATABASE DESIGNER Gender Identity Female 07/19/2023 9:21 AM DATABASE DESIGNER Sexual Orientation Straight 07/19/2023 9: 21 AM DATABASE DESIGNER documented as of this encounter Medications at [...]
--- OUTSIDE RECORDS SUMMARY | 2023-10-06 14:45 | XMS_ITS | Encounter Summary ---
Author Name Unknown Organization [facility] Address [address] [place] [address] Care Team Providers Care Electrical Mechanical Technician Name Role Phone Unavailable Primary Care Provider Unavailabl e Reason for Visit * Radiation Therapy (Routine) - Authorized Specialty Diagnoses / Procedures Referred By Contac t Referred To Contact Diagnoses 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 Right (HCC) Procedures Prior Auth Rad Tx [place] IMRT SIMPLE IMRT Breast Po Light M.D. [address] [place] [address] [facility] Referral ID Status Reason Start Date Expiration Date V isits Requested Visits Authorized [id number] Authorized 06/28/2023 06/15/2024 30 30 Encounter Details Date Type Department Care Team (Latest Contact Info) Description 08/05/2023 3:26 PM MECHANICAL OXIDIZER - 08/05/2023 11:59 PM [facility] Hospital Encounter Department of Radiation Oncology in [place], [place] [address] [place] [address] Po Light M.D. [address] [place] [phone] Discharge Disposition: Home or Self Care Social History Tobacco Use Types Packs/Day Years Used Date Smoking Tobacco: Never Smokeless Tobacco: Never Alcohol Use Standard Drinks/Week Comments Not Currently 0 (1 standard drink = 0.6 oz pur e alcohol) [facility] Utilities Answer Date Recorded In the past 12 months has e [employer], gas, oil, or water company threatened to [...] Sex Assigned at Female 07/19/2023 9:21 AM MECHANICAL OXIDIZER Gender Identity Female 07/19/2023 9:21 AM MECHANICAL OXIDIZER Sexual Orientation Straight 07/19/2023 9: 21 AM MECHANICAL OXIDIZER documented as of this encounter Medications at [...]
--- OUTSIDE RECORDS SUMMARY | 2023-10-06 14:45 | XMS_ITS | Encounter Summary ---
Author Name Unknown Organization [facility] Address [address] [place] [address] Care Team Providers Care Tool And Die Manager Name Role Phone Unavailable Primary Care Provider Unavailabl e Reason for Visit * Radiation Therapy (Routine) - Authorized Specialty Diagnoses / Procedures Referred By Contac t Referred To Contact Diagnoses 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 Right (HCC) Procedures Prior Auth Rad Tx [place] IMRT SIMPLE IMRT Breast Po Light M.D. [address] [place] [phone] [facility] Referral ID Status Reason Start Date Expiration Date V isits Requested Visits Authorized [id number] Authorized 06/28/2023 06/15/2024 30 30 Encounter Details Date Type Department Care Team (Latest Contact Info) Description 08/09/2023 3:28 PM CDT - 08/09/2023 11:59 PM CDT Hospital Encounter Department of Radiation Oncology in [place], [place] [address] [place] [phone] oP Light M.D. [address] [place] [phone] Discharge Disposition: Home or Self Care Social History Tobacco Use Types Packs/Day Years Used Date Smoking Tobacco: Never Smokeless Tobacco: Never Alcohol Use Standard Drinks/Week Comments Not Currently 0 (1 standard drink = 0.6 oz pur e alcohol) [facility] Utilities Answer Date Recorded In the past 12 months has e [employer], gas, oil, or water company threatened to [...] your living situation today? I have a [facility] place to live 07/19/2023 Sex and Gender Information Value Date Recorded Sex Assigned at Female 07/19/2023 9:21 AM ANATOMIC PATHOLOGY MANAGER Gender Identity Female 07/19/2023 9:21 AM ANATOMIC PATHOLOGY MANAGER Sexual Orientation Straight 07/19/2023 9: 21 AM ANATOMIC PATHOLOGY MANAGER documented as of this encounter Medications at [...]
--- OUTSIDE RECORDS SUMMARY | 2023-10-06 14:45 | XMS_ITS | Encounter Summary ---
Author Name Unknown Organization [facility] Address [address] [place] [address] Care Team Providers Care Type Proof Reproducer Name Role Phone Unavailable Primary Care Provider Unavailabl e Reason for Visit * Radiation Therapy (Routine) - Authorized Specialty Diagnoses / Procedures Referred By Contac t Referred To Contact Diagnoses 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 Right (HCC) Procedures Prior Auth Rad Tx [place] IMRT SIMPLE IMRT Breast Po Light M.D. [address] [place] [phone] [facility] Referral ID Status Reason Start Date Expiration Date V isits Requested Visits Authorized [id number] Authorized 06/28/2023 06/15/2024 30 30 Encounter Details Date Type Department Care Team (Latest Contact Info) Description 08/16/2023 3:28 PM CDT - 08/16/2023 11:59 PM CDT Hospital Encounter Department of Radiation Oncology in [place], [place] [address] [place] [phone] Po Light M.D. [address] [place] [phone] Discharge Disposition: Home or Self Care Social History Tobacco Use Types Packs/Day Years Used Date Smoking Tobacco: Never Smokeless Tobacco: Never Alcohol Use Standard Drinks/Week Comments Not Currently 0 (1 standard drink = 0.6 oz pur e alcohol) [facility] Utilities Answer Date Recorded In the past 12 months has e [employer], gas, oil, or water company threatened to [...] your living situation today? I have a [facility] place to live 07/19/2023 Sex and Gender Information Value Date Recorded Sex Assigned at Female 07/19/2023 9:21 AM PLASTIC ROLLER Gender Identity Female 07/19/2023 9:21 AM PLASTIC ROLLER Sexual Orientation Straight 07/19/2023 9: 21 AM PLASTIC ROLLER documented as of this encounter Medications at [...]
--- OUTSIDE RECORDS SUMMARY | 2023-10-06 14:45 | XMS_ITS | Encounter Summary ---
Author Name Unknown Organization [facility] Address [address] [place] [address] Care Team Providers Care Ag Service Manager Name Role Phone Unavailable Primary Care Provider Unavailabl e Reason for Visit * Radiation Therapy (Routine) - Authorized Specialty Diagnoses / Procedures Referred By Contac t Referred To Contact Diagnoses 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 Right (HCC) Procedures Prior Auth Rad Tx [place] IMRT SIMPLE IMRT Breast Po Light M.D. [address] [place] [phone] [facility] Referral ID Status Reason Start Date Expiration Date V isits Requested Visits Authorized [id number] Authorized 06/28/2023 06/15/2024 30 30 Encounter Details Date Type Department Care Team (Latest Contact Info) Description 08/19/2023 3:05 PM CDT - 08/19/2023 11:59 PM CDT Hospital Encounter Department of Radiation Oncology in [place], [place] [address] [place] [phone] Po Light M.D. [address] [place] [phone] Discharge Disposition: Home or Self Care Social History Tobacco Use Types Packs/Day Years Used Date Smoking Tobacco: Never Smokeless Tobacco: Never Alcohol Use Standard Drinks/Week Comments Not Currently 0 (1 standard drink = 0.6 oz pur e alcohol) [facility] Utilities Answer Date Recorded In the past 12 months has e [employer], gas, oil, or water company threatened to [...] your living situation today? I have a [facility] place to live 07/19/2023 Sex and Gender Information Value Date Recorded Sex Assigned at Female 07/19/2023 9:21 AM BOLT MAN Gender Identity Female 07/19/2023 9:21 AM BOLT MAN Sexual Orientation Straight 07/19/2023 9: 21 AM BOLT MAN documented as of this encounter Medications at [...]
--- OUTSIDE RECORDS SUMMARY | 2023-10-06 14:45 | XMS_ITS | Encounter Summary ---
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 200 [place] [address] [facility] Region Referral ID Status Reason Start Date Expiration Date V isits Requested Visits Authorized [id number] Authorized 06/16/2023 06/15/2024 10 10 Encounter Details Date Type Department Care Team (Latest Contact Info) Description 07/28/2023 2:56 PM LUMBER MATERIAL HANDLER - 07/28/2023 3:23 PM LUMBER MATERIAL HANDLER Hospital Encounter Department of Radiation Oncology in [place], [place] [address] [place] [phone] Po Light M.D. 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 I have a [facility] place to live 07/19/2023 Sex and Gender Information Value Date Recorded Sex Assigned at Female 07/19/2023 9:21 AM LUMBER MATERIAL HANDLER Gender Identity Female 07/19/2023 9:21 AM LUMBER MATERIAL HANDLER Sexual Orientation Straight 07/19/2023 9: 21 AM LUMBER MATERIAL HANDLER documented as of this encounter Last Filed Vital Signs Vital Sign Reading Time Taken Comments Blood Pressure - - Pulse - - Temperature 36.1 ??C (97 ??F) 07/28/2023 3:10 PM LUMBER MATERIAL HANDLER Respiratory Rate - - Oxygen Saturation - - Inhaled Oxygen Concentration - - Weight 56.1 kg (123 lb 10.9 oz) 07/28/2023 3:10 PM LUMBER MATERIAL HANDLER Height - - Body Mass Index - [...] Progress Notes * Po Light M.D. - 07/28/2023 3:15 PM CST SUBJECTIVE CHIEF COMPLAINT/REASON FOR VISIT Evaluation for side effects while receiving radiation treatment for 1. 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 ([id number]) HISTORY OF PRESENT ILLNESS Radha [facility]cocer [facility] is a 47 y.o. 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 Patient is now undergoing radiotherapy to the right chest wall and regional lymph nodes. Treatment Course: 1xBreast Plan ID Fractions Dose / Fraction (cGy) Dose Treated (cGy) Dose Planned (cGy) First Treatment Last Treatment Elapsed Days [id number] 07/19/2023 07/27/2023 8 Course Summary 07/19/2023 07/27/2023 8 The patient was seen and examined today with Dr. Light. The patient reports to be feeling well overall. She notes some tightness and heaviness in her chestafter radiation but then it goes away by the following day. She also notices increased fatigue withtreatment. She is applying Mometasone cream and lotion to neck and upper back. PATIENT REPORTED SYMPTOM SCREEN FATIGUE (Scale: 0 = no fatigue; 10 = worst fatigue you can imagine): 0 PAIN (Scale: 0 = no pain; 10 = worst pain you can imagine): 1 OVERALL QUALITY OF LIFE (Scale: 0 = as bad as can be; 10 = as good as can be): 9 OBJECTIVE Temp 36.1 ??C (Temporal) Wt 56.1 kg PHYSICAL EXAMINATION General: Alert and oriented, in no apparent distress. Skin: Mild erythema noted to neck and chest wall. No erythema to upper back. Mepitel intact ASSESSMENT / PLAN #1 Stage IA (pT3, pN0(sn), cM0, G1, ER+, NM+, HER2-) invasive lobular carcinoma of the right breastand stage 0 (pTis (DCIS) cN0, cM0, G1, ER+) ductal carcinoma in situ of the left breast s/p bilateral mastectomies and right axillary sentinel lymph node biopsy on May 27, 2023 with a positive margin #2 Radiation therapy to right chest wall and regional lymph nodes initiated on July 19, 2023; anticipated completion on August 20, 2023 The patient is tolerating radiation treatment well overall. Mepitel is intact and was patched a Wednesday. She can continue to apply Mometasone and lotion to right neck and right upper back twice daily,waiting 30 minutes in between Mometasone and lotion application. Also provided the patient a sampleof Aquaphor that she can apply to neck if skin becomes more dry and irritated. Patient can trial Ibuprofen to see if helps with the tightness that she is experiencing. She will continue with radiation treatment as planned. She can contact our care team with any questions or concerns. Signed by: Ev Mcguire R.N. 07/28/2023 3:40 PM LUMBER MATERIAL HANDLER I saw and evaluated the patient and participated in the gardner portions of the service. I reviewed thedocumentation of Ev Mcguire R.N. and agree with the findings and plan. The patient appears well on exam. She is tolerating treatment well. She will continue with treatment as planned. Signed by: Po Light M.D. 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
--- OUTSIDE RECORDS SUMMARY | 2023-10-06 14:45 | XMS_ITS | Encounter Summary ---
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 [address] [place] [phone] [facility] Referral ID Status Reason Start Date Expiration Date V isits Requested Visits Authorized [id number] Authorized 06/28/2023 06/15/2024 30 30 Encounter Details Date Type Department Care Team (Latest Contact Info) Description 08/13/2023 3:23 PM CDT - 08/13/2023 11:59 PM CDT Hospital Encounter Department of Radiation Oncology in [place], [place] [address] [place] [phone] Po Light M.D. [address] [place] [phone] Discharge Disposition: Home or Self Care Social History Tobacco Use Types Packs/Day Years Used Date Smoking Tobacco: Never Smokeless Tobacco: Never Alcohol Use Standard Drinks/Week Comments Not Currently 0 (1 standard drink = 0.6 oz pur e alcohol) [facility] Utilities Answer Date Recorded In the past 12 months has e [employer], gas, oil, or water company threatened to [...] your living situation today? I have a [facility] place to live 07/19/2023 Sex and Gender Information Value Date Recorded Sex Assigned at Female 07/19/2023 9:21 AM MACHINE SHORTHAND TEACHER Gender Identity Female 07/19/2023 9:21 AM MACHINE SHORTHAND TEACHER Sexual Orientation Straight 07/19/2023 9: 21 AM MACHINE SHORTHAND TEACHER documented as of this encounter Medications at [...]
--- OUTSIDE RECORDS SUMMARY | 2023-10-06 14:45 | XMS_ITS | Encounter Summary ---
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 [address] [place] [phone] [facility] Region Referral ID Status Reason Start Date Expiration Date V isits Requested Visits Authorized [id number] Authorized 06/16/2023 06/15/2024 10 10 Encounter Details Date Type Department Care Team (Latest Contact Info) Description 08/10/2023 3:28 PM CDT - 08/10/2023 5:08 PM CDT Hospital Encounter Department of Radiation Oncology in [place], [place] [address] [place] [phone] Odette Dolan M.D. 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 I have a [facility] place to live 07/19/2023 Sex and Gender Information Value Date Recorded Sex Assigned at Female 07/19/2023 9:21 AM METAL EXTRUSION SUPERVISOR Gender Identity Female 07/19/2023 9:21 AM METAL EXTRUSION SUPERVISOR Sexual Orientation Straight 07/19/2023 9: 21 AM METAL EXTRUSION SUPERVISOR documented as of this encounter Last Filed Vital Signs Vital Sign Reading Time Taken Comments Blood Pressure - - Pulse - - Temperature 36.7 ??C (98 ??F) 08/10/2023 4:02 PM CDT Respiratory Rate - - Oxygen Saturation - - Inhaled Oxygen Concentration - - Weight 56.6 kg (124 lb 12.5 oz) 08/10/2023 4:02 PM CDT Height - - Body Mass [...] as of this encounter Progress Notes * Odette Dolan M.D. - 08/10/2023 4:15 PM CDT SUBJECTIVE CHIEF COMPLAINT/REASON FOR VISIT Evaluation for side effects while receiving radiation treatment for 1. 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 HISTORY OF PRESENT ILLNESS [facility] is a 47-year-old female with stage IA (pT3, pN0(sn), cM), G1, ER+, SD+, HER2-) invasive lobular carcinoma of the right breast. She is receiving radiotherapy to the right chest wall and regional lymph nodes. Treatment Course: 1xBreast Plan ID Fractions Dose / Fraction (cGy) Dose Treated (cGy) Dose Planned (cGy) First Treatment Last Treatment Elapsed Days [id number] 07/19/2023 08/10/2023 Course Summary 07/19/2023 08/10/2023 The patient was seen and examined today with Dr. Dolan. The patient reports doing well overall. Patient is applying mometasone cream and lotion to her neckand upper back. She notes some chest tightness but denies pain. She has no other issues or concernsat this time. OBJECTIVE Temp 36.7 ??C (Temporal) Wt 56.6 kg PHYSICAL EXAMINATION General: Alert and oriented, in no apparent distress. Skin: Erythema of the skin of the right chest wall and right side of neck. Mild hyperpigmentation to right axilla. No desquamation. Mepitel intact. ASSESSMENT / PLAN #1 Stage IA (pT3, pN0(sn), cM0, G1, ER+, SD+, HER2-) invasive lobular carcinoma of the right [...] radiation treatment well overall. Mepitel is intact. She will continue toapply mometasone cream and lotion to the skin within the treatment field outside of the Mepitel. She will continue with radiation treatment as planned. She will contact our care team with any question or concerns. Signed by: Ev Mcguire R.N. 08/10/2023 4:03 PM CDT ATTESTATION FOR MANAGEMENT VISIT I saw and evaluated the patient and participated in the gardner portions of the service as noted above.I reviewed the documentation of Ms. Ev Mcguire RN and agree with the findings and plan. Thepatient appears well on exam. We will continue with radiation as planned and monitor weekly. 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
--- OUTSIDE RECORDS SUMMARY | 2023-10-06 14:45 | XMS_ITS | Encounter Summary ---
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 [address] [place] [address] [facility] Referral ID Status Reason Start Date Expiration Date V isits Requested Visits Authorized [id number] Authorized 06/28/2023 06/15/2024 30 30 Encounter Details Date Type Department Care Team (Latest Contact Info) Description 08/06/2023 3:24 PM BANKING ASSISTANT - 08/06/2023 11:59 PM [facility] Hospital Encounter Department of Radiation Oncology in [place], [place] [address] [place] [phone] Po Light M.D. [address] [place] [phone] Discharge Disposition: Home or Self Care Social History Tobacco Use Types Packs/Day Years Used Date Smoking Tobacco: Never Smokeless Tobacco: Never Alcohol Use Standard Drinks/Week Comments Not Currently 0 (1 standard drink = 0.6 oz pur e alcohol) [facility] Utilities Answer Date Recorded In the past 12 months has e [employer], gas, oil, or water company threatened to [...] your living situation today? I have a [facility] place to live 07/19/2023 Sex and Gender Information Value Date Recorded Sex Assigned at Female 07/19/2023 9:21 AM BANKING ASSISTANT Gender Identity Female 07/19/2023 9:21 AM BANKING ASSISTANT Sexual Orientation Straight 07/19/2023 9: 21 AM BANKING ASSISTANT documented as of this encounter Medications at [...]
--- OUTSIDE RECORDS SUMMARY | 2023-10-06 14:45 | XMS_ITS | Encounter Summary ---
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 [address] [place] [address] [facility] Referral ID Status Reason Start Date Expiration Date V isits Requested Visits Authorized [id number] Authorized 06/28/2023 06/15/2024 30 30 Encounter Details Date Type Department Care Team (Latest Contact Info) Description 08/02/2023 3:29 PM PRIVATE DETECTIVE - 08/02/2023 11:59 PM [facility] Hospital Encounter Department of Radiation Oncology in [place], [place] [address] [place] [address] Po Light M.D. [address] [place] [phone] Discharge Disposition: Home or Self Care Social History Tobacco Use Types Packs/Day Years Used Date Smoking Tobacco: Never Smokeless Tobacco: Never Alcohol Use Standard Drinks/Week Comments Not Currently 0 (1 standard drink = 0.6 oz pur e alcohol) [facility] Utilities Answer Date Recorded In the past 12 months has e [employer], gas, oil, or water company threatened to [...] your living situation today? I have a [facility] place to live 07/19/2023 Sex and Gender Information Value Date Recorded Sex Assigned at Female 07/19/2023 9:21 AM PRIVATE DETECTIVE Gender Identity Female 07/19/2023 9:21 AM PRIVATE DETECTIVE Sexual Orientation Straight 07/19/2023 9: 21 AM PRIVATE DETECTIVE documented as of this encounter Medications at [...]
--- OUTSIDE RECORDS SUMMARY | 2023-10-06 14:45 | XMS_ITS | Encounter Summary ---
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 [address] [place] [address] [facility] Referral ID Status Reason Start Date Expiration Date V isits Requested Visits Authorized [id number] Authorized 06/28/2023 06/15/2024 30 30 Encounter Details Date Type Department Care Team (Latest Contact Info) Description 08/04/2023 3:37 PM ELECTRONIC ASSEMBLY - 08/04/2023 11:59 PM [facility] Hospital Encounter Department of Radiation Oncology in [place], [place] [address] [place] [phone] Po Light M.D. [address] [place] [phone] Discharge Disposition: Home or Self Care Social History Tobacco Use Types Packs/Day Years Used Date Smoking Tobacco: Never Smokeless Tobacco: Never Alcohol Use Standard Drinks/Week Comments Not Currently 0 (1 standard drink = 0.6 oz pur e alcohol) [facility] Utilities Answer Date Recorded In the past 12 months has e [employer], gas, oil, or water company threatened to [...] your living situation today? I have a [facility] place to live 07/19/2023 Sex and Gender Information Value Date Recorded Sex Assigned at Female 07/19/2023 9:21 AM ELECTRONIC ASSEMBLY Gender Identity Female 07/19/2023 9:21 AM ELECTRONIC ASSEMBLY Sexual Orientation Straight 07/19/2023 9: 21 AM ELECTRONIC ASSEMBLY documented as of this encounter Medications at [...]
--- OUTSIDE RECORDS SUMMARY | 2023-10-06 14:45 | XMS_ITS | Encounter Summary ---
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 [address] [place] [address] [facility] Referral ID Status Reason Start Date Expiration Date V isits Requested Visits Authorized [id number] Authorized 06/28/2023 06/15/2024 30 30 Encounter Details Date Type Department Care Team (Latest Contact Info) Description 07/30/2023 3:27 PM BOARD CERTIFIED ORTHODONTIST - 07/30/2023 11:59 PM [facility] Hospital Encounter Department of Radiation Oncology in [place], [place] [address] [place] [address] Po Light M.D. [address] [place] [phone] Discharge Disposition: Home or Self Care Social History Tobacco Use Types Packs/Day Years Used Date Smoking Tobacco: Never Smokeless Tobacco: Never Alcohol Use Standard Drinks/Week Comments Not Currently 0 (1 standard drink = 0.6 oz pur e alcohol) [facility] Utilities Answer Date Recorded In the past 12 months has e [employer], gas, oil, or water company threatened to [...] your living situation today? I have a [facility] place to live 07/19/2023 Sex and Gender Information Value Date Recorded Sex Assigned at Female 07/19/2023 9:21 AM BOARD CERTIFIED ORTHODONTIST Gender Identity Female 07/19/2023 9:21 AM BOARD CERTIFIED ORTHODONTIST Sexual Orientation Straight 07/19/2023 9: 21 AM BOARD CERTIFIED ORTHODONTIST documented as of this encounter Medications at [...]
--- OUTSIDE RECORDS SUMMARY | 2023-10-06 14:45 | XMS_ITS | Encounter Summary ---
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 [address] [place] [phone] [facility] Referral ID Status Reason Start Date Expiration Date V isits Requested Visits Authorized [id number] Authorized 06/28/2023 06/15/2024 30 30 Encounter Details Date Type Department Care Team (Latest Contact Info) Description 08/10/2023 3:28 PM CDT - 08/10/2023 11:59 PM CDT Hospital Encounter Department of Radiation Oncology in [place], [place] [address] [place] [phone] Po Light M.D. [address] [place] [phone] Discharge Disposition: Home or Self Care Social History Tobacco Use Types Packs/Day Years Used Date Smoking Tobacco: Never Smokeless Tobacco: Never Alcohol Use Standard Drinks/Week Comments Not Currently 0 (1 standard drink = 0.6 oz pur e alcohol) [facility] Utilities Answer Date Recorded In the past 12 months has e [employer], gas, oil, or water company threatened to [...] your living situation today? I have a [facility] place to live 07/19/2023 Sex and Gender Information Value Date Recorded Sex Assigned at Female 07/19/2023 9:21 AM LOAN MANAGER Gender Identity Female 07/19/2023 9:21 AM LOAN MANAGER Sexual Orientation Straight 07/19/2023 9: 21 AM LOAN MANAGER documented as of this encounter Medications [...]
--- OUTSIDE RECORDS SUMMARY | 2023-10-06 14:45 | XMS_ITS | Encounter Summary ---
Author Name Unknown Organization [facility] Address [address] [place] [address] Care Team Providers Care Interventional Radiology Tech Name Role Phone Unavailable Primary Care Provider Unavailabl e Reason for Visit * Radiation Therapy (Routine) - Authorized Specialty Diagnoses / Procedures Referred By Contac t Referred To Contact Diagnoses 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 Right (HCC) Procedures Prior Auth Rad Tx CT IMRT SIMPLE IMRT Breast Po Light M.D. [address] [place] [phone] [facility] Referral ID Status Reason Start Date Expiration Date V isits Requested Visits Authorized [id number] Authorized 06/28/2023 06/15/2024 30 30 Encounter Details Date Type Department Care Team (Latest Contact Info) Description 08/12/2023 3:29 PM CDT - 08/12/2023 11:59 PM CDT Hospital Encounter Department of Radiation Oncology in [place], [place] [address] [place] [address] Po Light M.D. [address] [place] [phone] Discharge Disposition: Home or Self Care Social History Tobacco Use Types Packs/Day Years Used Date Smoking Tobacco: Never Smokeless Tobacco: Never Alcohol Use Standard Drinks/Week Comments Not Currently 0 (1 standard drink = 0.6 oz pur e alcohol) [facility] Utilities Answer Date Recorded In the past 12 months has e [employer], gas, oil, or water company threatened to [...] your living situation today? I have a [facility] place to live 07/19/2023 Sex and Gender Information Value Date Recorded Sex Assigned at Female 07/19/2023 9:21 AM HAZARDOUS MATERIALS DRIVER Gender Identity Female 07/19/2023 9:21 AM HAZARDOUS MATERIALS DRIVER Sexual Orientation Straight 07/19/2023 9: 21 AM HAZARDOUS MATERIALS DRIVER documented as of this encounter Medications at [...]
--- OUTSIDE RECORDS SUMMARY | 2023-10-06 14:45 | XMS_ITS | Encounter Summary ---
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 [address] [place] [address] [facility] Referral ID Status Reason Start Date Expiration Date V isits Requested Visits Authorized [id number] Authorized 06/28/2023 06/15/2024 30 30 Encounter Details Date Type Department Care Team (Latest Contact Info) Description 07/29/2023 3:27 PM SUPERVISOR FINAL - 07/29/2023 11:59 PM [facility] Hospital Encounter Department of Radiation Oncology in [place], [place] [address] [place] [address] Po Light M.D. [address] [place] [phone] Discharge Disposition: Home or Self Care Social History Tobacco Use Types Packs/Day Years Used Date Smoking Tobacco: Never Smokeless Tobacco: Never Alcohol Use Standard Drinks/Week Comments Not Currently 0 (1 standard drink = 0.6 oz pur e alcohol) [facility] Utilities Answer Date Recorded In the past 12 months has e [employer], gas, oil, or water company threatened to [...] your living situation today? I have a [facility] place to live 07/19/2023 Sex and Gender Information Value Date Recorded Sex Assigned at Female 07/19/2023 9:21 AM SUPERVISOR FINAL Gender Identity Female 07/19/2023 9:21 AM SUPERVISOR FINAL Sexual Orientation Straight 07/19/2023 9: 21 AM SUPERVISOR FINAL documented as of this encounter Medications at [...]
--- OUTSIDE RECORDS SUMMARY | 2023-10-06 14:45 | XMS_ITS | Encounter Summary ---
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 [address] [place] [phone] [facility] Referral ID Status Reason Start Date Expiration Date V isits Requested Visits Authorized [id number] Authorized 06/28/2023 06/15/2024 30 30 Encounter Details Date Type Department Care Team (Latest Contact Info) Description 08/18/2023 3:29 PM CDT - 08/18/2023 11:59 PM CDT Hospital Encounter Department of Radiation Oncology in [place], [place] [address] [place] [phone] Po Light M.D. [address] [place] [phone] Discharge Disposition: Home or Self Care Social History Tobacco Use Types Packs/Day Years Used Date Smoking Tobacco: Never Smokeless Tobacco: Never Alcohol Use Standard Drinks/Week Comments Not Currently 0 (1 standard drink = 0.6 oz pur e alcohol) [facility] Utilities Answer Date Recorded In the past 12 months has e [employer], gas, oil, or water company threatened to [...] your living situation today? I have a [facility] place to live 07/19/2023 Sex and Gender Information Value Date Recorded Sex Assigned at Female 07/19/2023 9:21 AM SUPPLY CHAIN PLANNER Gender Identity Female 07/19/2023 9:21 AM SUPPLY CHAIN PLANNER Sexual Orientation Straight 07/19/2023 9: 21 AM SUPPLY CHAIN PLANNER documented as of this encounter Medications at [...]
--- OUTSIDE RECORDS SUMMARY | 2023-10-06 14:45 | XMS_ITS | Encounter Summary ---
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 [address] [place] [phone] [facility] Referral ID Status Reason Start Date Expiration Date V isits Requested Visits Authorized [id number] Authorized 06/28/2023 06/15/2024 30 30 Encounter Details Date Type Department Care Team (Latest Contact Info) Description 08/11/2023 3:29 PM CDT - 08/11/2023 11:59 PM CDT Hospital Encounter Department of Radiation Oncology in [place], [place] [address] [place] [phone] Po Light M.D. [address] [place] [phone] Discharge Disposition: Home or Self Care Social History Tobacco Use Types Packs/Day Years Used Date Smoking Tobacco: Never Smokeless Tobacco: Never Alcohol Use Standard Drinks/Week Comments Not Currently 0 (1 standard drink = 0.6 oz pur e alcohol) [facility] Utilities Answer Date Recorded In the past 12 months has e [employer], gas, oil, or water company threatened to [...] your living situation today? I have a [facility] place to live 07/19/2023 Sex and Gender Information Value Date Recorded Sex Assigned at Female 07/19/2023 9:21 AM BANANA RIPENING ROOM SUPERVISOR Gender Identity Female 07/19/2023 9:21 AM BANANA RIPENING ROOM SUPERVISOR Sexual Orientation Straight 07/19/2023 9: 21 AM BANANA RIPENING ROOM SUPERVISOR documented as of this encounter Medications at [...]
--- OUTSIDE RECORDS SUMMARY | 2023-10-06 14:45 | XMS_ITS | Encounter Summary ---
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 [address] [place] [address] [facility] Referral ID Status Reason Start Date Expiration Date V isits Requested Visits Authorized [id number] Authorized 06/28/2023 06/15/2024 30 30 Encounter Details Date Type Department Care Team (Latest Contact Info) Description 08/03/2023 3:29 PM PICK UP ATTENDANT - 08/03/2023 11:59 PM [facility] Hospital Encounter Department of Radiation Oncology in [place], [place] [address] [place] [address] Po Light M.D. [address] [place] [phone] Discharge Disposition: Home or Self Care Social History Tobacco Use Types Packs/Day Years Used Date Smoking Tobacco: Never Smokeless Tobacco: Never Alcohol Use Standard Drinks/Week Comments Not Currently 0 (1 standard drink = 0.6 oz pur e alcohol) [facility] Utilities Answer Date Recorded In the past 12 months has e [employer], gas, oil, or water company threatened to [...] your living situation today? I have a [facility] place to live 07/19/2023 Sex and Gender Information Value Date Recorded Sex Assigned at Female 07/19/2023 9:21 AM PICK UP ATTENDANT Gender Identity Female 07/19/2023 9:21 AM PICK UP ATTENDANT Sexual Orientation Straight 07/19/2023 9: 21 AM PICK UP ATTENDANT documented as of this encounter Medications at [...]
--- OUTSIDE RECORDS SUMMARY | 2023-10-06 14:45 | XMS_ITS | Encounter Summary ---
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 [address] [place] [address] [facility] Region Referral ID Status Reason Start Date Expiration Date V isits Requested Visits Authorized [id number] Authorized 06/16/2023 06/15/2024 10 10 Encounter Details Date Type Department Care Team (Latest Contact Info) Description 08/04/2023 2:56 PM FAN BLADE ALIGNER - 08/04/2023 3:36 PM FAN BLADE ALIGNER Hospital Encounter Department of Radiation Oncology in [place], [place] [address] [place] [phone] Po Light M.D. 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 I have a [facility] place to live 07/19/2023 Sex and Gender Information Value Date Recorded Sex Assigned at Female 07/19/2023 9:21 AM FAN BLADE ALIGNER Gender Identity Female 07/19/2023 9:21 AM FAN BLADE ALIGNER Sexual Orientation Straight 07/19/2023 9: 21 AM FAN BLADE ALIGNER documented as of this encounter Last Filed Vital Signs Vital Sign Reading Time Taken Comments Blood Pressure - - Pulse - - Temperature 36.4 ??C (97.6 ??F) 08/04/2023 3:07 PM CS T Respiratory Rate - - Oxygen Saturation - - Inhaled Oxygen Concentration - - Weight 57.2 kg (126 lb 1.7 oz) 08/04/2023 3:07 P M FAN BLADE ALIGNER Height - - Body Mass Index - [...] as of this encounter Progress Notes * Kristel Pozo P.A.-Natalie., M.S. - 08/04/2023 3:15 PM CST SUBJECTIVE CHIEF COMPLAINT/REASON FOR VISIT Evaluation for side effects while receiving radiation treatment for 1. 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 ([id number]) HISTORY OF PRESENT ILLNESS Radha Paytontanishamariela is a 47-year-old female with stage IA (pT3, pN0(sn), cM), G1, ER+, [place]+, HER2-) invasive lobular carcinoma of the right breast. She is receiving radiotherapy to the right chest wall and regional lymph nodes. Treatment Course: 1xBreast Plan ID Fractions Dose / Fraction (cGy) Dose Treated (cGy) Dose Planned (cGy) First Treatment Last Treatment Elapsed Days [id number] 07/19/2023 08/04/2023 16 Course Summary 07/19/2023 08/04/2023 16 The patient was seen and examined today with Dr. Light. The patient reports doing well overall. She reports that the Mepitel has been falling off the skin of the right chest wall. She is applying mometasone cream to the skin outside of the Mepitel including her neck and upper back. She reports some tightness of the chest wall area, but denies pain. She denies swelling. OBJECTIVE Temp 36.4 ??C (Temporal) Wt 57.2 kg PHYSICAL EXAMINATION General: Alert and oriented, in no apparent distress. Skin: Mild erythema of the skin of the right chest wall. No desquamation. ASSESSMENT / PLAN #1 Stage IA (pT3, pN0(sn), cM0, G1, ER+, [place]+, HER2-) invasive lobular carcinoma of the right [...] patient is tolerating radiation treatment well overall. She has mild erythema of the skin of the right chest wall. Her Mepitel is falling off and one of our RNs kindly agreed to re-apply Mepitel for the patient today. She will continue to apply mometasone cream and lotion to the skin within thetreatment field outside of the Mepitel. The patient is considering going on a vacation with her family for spring, which is the week following her treatment completion. We discussed that her skin will be closely evaluated her last week of treatment and she can be provided with dressing supplies at that time, if indicated. She will continue with radiation treatment as planned. Signed by: Kristel Pozo P.A.-C., M.S. 08/04/2023 4:00 PM FAN BLADE ALIGNER BLADE ALIGNER Associated attestation - Po Light M.D. - 08/04/2023 6:20 PM FAN BLADE ALIGNER I saw and evaluated the patient and participated in the gardner portions of the service. I reviewed thedocumentation of Kristel Pozo P.A.-C. and agree with the findings and plan. The patient appears well on exam. She will continue with treatment as planned. Signed by: Po Light M.D. 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
--- OUTSIDE RECORDS SUMMARY | 2023-10-06 14:45 | XMS_ITS | Encounter Summary ---
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 [address] [place] [address] [facility] Referral ID Status Reason Start Date Expiration Date V isits Requested Visits Authorized [id number] Authorized 06/28/2023 06/15/2024 30 30 Encounter Details Date Type Department Care Team (Latest Contact Info) Description 07/28/2023 3:24 PM NUMERICAL CONTROL ROUTER OPERATOR - 07/28/2023 11:59 PM [facility] Hospital Encounter Department of Radiation Oncology in [place], [place] [address] [place] [address] Po Light M.D. [address] [place] [phone] Discharge Disposition: Home or Self Care Social History Tobacco Use Types Packs/Day Years Used Date Smoking Tobacco: Never Smokeless Tobacco: Never Alcohol Use Standard Drinks/Week Comments Not Currently 0 (1 standard drink = 0.6 oz pur e alcohol) [facility] Utilities Answer Date Recorded In the past 12 months has e [employer], gas, oil, or water company threatened to [...] your living situation today? I have a [facility] place to live 07/19/2023 Sex and Gender Information Value Date Recorded Sex Assigned at Female 07/19/2023 9:21 AM NUMERICAL CONTROL ROUTER OPERATOR Gender Identity Female 07/19/2023 9:21 AM NUMERICAL CONTROL ROUTER OPERATOR Sexual Orientation Straight 07/19/2023 9: 21 AM NUMERICAL CONTROL ROUTER OPERATOR documented as of this encounter Medications at [...]
--- OUTSIDE RECORDS SUMMARY | 2023-10-06 14:46 | XMS_ITS | Encounter Summary ---
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 [address] [place] [address] [facility] Referral ID Status Reason Start Date Expiration Date V isits Requested Visits Authorized [id number] Authorized 06/28/2023 06/15/2024 30 30 Encounter Details Date Type Department Care Team (Latest Contact Info) Description 07/19/2023 3:29 PM PEDIATRIC PSYCHIATRIST - 07/19/2023 11:[address] [facility] Hospital Encounter Department of Radiation Oncology in [place], [place] [address] [place] [address] Po Light M.D. [address] [place] [phone] Discharge Disposition: Home or Self Care Social History Tobacco Use Types Packs/Day Years Used Date Smoking Tobacco: Never Smokeless Tobacco: Never Alcohol Use Standard Drinks/Week Comments Not Currently 0 (1 standard drink = 0.6 oz pur e alcohol) [facility] Utilities Answer Date Recorded In the past 12 months has e [employer], gas, oil, or water company threatened to [...] your living situation today? I have a [facility] place to live 07/19/2023 Sex and Gender Information Value Date Recorded Sex Assigned at Female 07/19/2023 9:21 AM PEDIATRIC PSYCHIATRIST Gender Identity Female 07/19/2023 9:21 AM PEDIATRIC PSYCHIATRIST Sexual Orientation Straight 07/19/2023 9: 21 AM PEDIATRIC PSYCHIATRIST documented as of this encounter Medications at [...]
--- OUTSIDE RECORDS SUMMARY | 2023-10-06 14:46 | XMS_ITS | Encounter Summary ---
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 [address] [place] [address] [facility] Referral ID Status Reason Start Date Expiration Date V isits Requested Visits Authorized [id number] Authorized 06/28/2023 06/15/2024 30 30 Encounter Details Date Type Department Care Team (Latest Contact Info) Description 07/27/2023 3:27 PM THERMOMETER PRODUCTION WORKER - 07/27/2023 11:59 PM [facility] Hospital Encounter Department of Radiation Oncology in [place], [place] [address] [place] [address] Po Light M.D. [address] [place] [phone] Discharge Disposition: Home or Self Care Social History Tobacco Use Types Packs/Day Years Used Date Smoking Tobacco: Never Smokeless Tobacco: Never Alcohol Use Standard Drinks/Week Comments Not Currently 0 (1 standard drink = 0.6 oz pur e alcohol) [facility] Utilities Answer Date Recorded In the past 12 months has e [employer], gas, oil, or water company threatened to [...] your living situation today? I have a [facility] place to live 07/19/2023 Sex and Gender Information Value Date Recorded Sex Assigned at Female 07/19/2023 9:21 AM THERMOMETER PRODUCTION WORKER Gender Identity Female 07/19/2023 9:21 AM THERMOMETER PRODUCTION WORKER Sexual Orientation Straight 07/19/2023 9: 21 AM THERMOMETER PRODUCTION WORKER documented as of this encounter Medications at [...]
--- OUTSIDE RECORDS SUMMARY | 2023-10-06 14:46 | XMS_ITS | Encounter Summary ---
Author Name Unknown Organization [facility] Address [address] [place] [address] Care Team Providers Care High Lift Driver Name Role Phone Unavailable Primary Care Provider Unavailabl e Reason for Referral * Outpatient (Routine) - Closed Specialty Diagnoses / Procedures Referred By Lorie mohan Referred To Contact Radiation Oncology Po Light M.D. [address] [place] [phone] [facility] Referral ID Status Reason Start Date Expiration Date Visits Re quested Visits Authorized [id number] Closed 06/16/2023 06/15/2026 1 1 ROLS OPERATOR MOLDED GOODS Reason for Visit * Outpatient (Routine) - Closed Specialty Diagnoses / Procedures Referred By Lorie mohan Referred To Contact Radiation Oncology Po Light M.D. [address] [place] [phone] [facility] Referral ID Status Reason Start Date Expiration Date Visits Re quested Visits Authorized [id number] Closed 06/16/2023 06/15/2026 1 1 Encounter Details Date Type Department Care Team (Latest Contact Info) Description 07/20/2023 3:24 PM CONTROLS OPERATOR MOLDED GOODS - 07/20/2023 3:44 PM CONTROLS OPERATOR MOLDED GOODS Hospital Encounter Department of Radiation Oncology in [place], [place] [address] [place] [phone] Po Light M.D. [address] [place] [phone] Maddy Avila R.N. 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 Never true 07/19/19 Within the past 12 months, t he [...] your living situation today? I have a [facility] place to live 07/19/2023 Sex and Gender Information Value Date Recorded Sex Assigned at Female 07/19/2023 9:21 AM CONTROLS OPERATOR MOLDED GOODS Gender Identity Female 07/19/2023 9:21 AM CONTROLS OPERATOR MOLDED GOODS Sexual Orientation Straight 07/19/2023 9: 21 AM CONTROLS OPERATOR MOLDED GOODS documented as of this encounter Medications at [...] as of this encounter Progress Notes * Ev Mcguire RTravonN. - 07/20/2023 3:30 PM CST 1. 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 she understands that she may contact our department for any questions or concerns. 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
--- OUTSIDE RECORDS SUMMARY | 2023-10-06 14:46 | XMS_ITS | Encounter Summary ---
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 [address] [place] [address] [facility] Referral ID Status Reason Start Date Expiration Date V isits Requested Visits Authorized [id number] Authorized 06/28/2023 06/15/2024 30 30 Encounter Details Date Type Department Care Team (Latest Contact Info) Description 07/26/2023 3:26 PM YEAST SUPERVISOR - 07/26/2023 3:27 PM [facility] Hospital Encounter Department of Radiation Oncology in [place], [place] [address] [place] [phone] Po Lgiht M.D. [address] [place] [phone] Discharge Disposition: Home or Self Care Social History Tobacco Use Types Packs/Day Years Used Date Smoking Tobacco: Never Smokeless Tobacco: Never Alcohol Use Standard Drinks/Week Comments Not Currently 0 (1 standard drink = 0.6 oz pur e alcohol) [facility] Utilities Answer Date Recorded In the past 12 months has e [employer], gas, oil, or water company threatened to [...] your living situation today? I have a [facility] place to live 07/19/2023 Sex and Gender Information Value Date Recorded Sex Assigned at Female 07/19/2023 9:21 AM YEAST SUPERVISOR Gender Identity Female 07/19/2023 9:21 AM YEAST SUPERVISOR Sexual Orientation Straight 07/19/2023 9: 21 AM YEAST SUPERVISOR documented as of this encounter Medications [...]
--- OUTSIDE RECORDS SUMMARY | 2023-10-06 14:46 | XMS_ITS | Encounter Summary ---
Author Name Unknown Organization [facility] Address [address] [place] [address] Care Team Providers Care House Worker General Name Role Phone Unavailable Primary Care Provider Unavailabl e Encounter Details Date Type Department Care Team (Late st Contact Info) Description 07/06/2023 Clinical Communication Department of Radiation Oncology in [place], [place] [address] [place] [address] Po Light M.D. [address] [place] [address] Social History Tobacco Use Types Packs/Day Years Used Date Smoking Tobacco: Never Smokeless Tobacco: Never Alcohol Use Standard Drinks/Week Comments Not Currently 0 (1 standard drink = 0.6 oz pur e alcohol) [facility] Utilities Answer Date Recorded In the past 12 months has e electric, gas, oil, or water [employer] threatened to shut off services in your [...] your living situation today? I have a [facility] place to live 07/19/2023 Sex and Gender Information Value Date Recorded Sex Assigned at Female 07/19/2023 9:21 AM SENIOR HRIS ANALYST Gender Identity Female 07/19/2023 9:21 AM SENIOR HRIS ANALYST Sexual Orientation Straight 07/19/2023 9: 21 AM SENIOR HRIS ANALYST documented as of this encounter Miscellaneous Notes * Telephone Encounter - Suzanne Lozano - 07/06/2023 11:40 AM CST Other Reason for Call Caller: Radha Relationships to patient: self Reason for call: Patient called stating she started having COVID symptoms yesterday. She tested herself today and was COVID positive. She is scheduled to start radiation treatment tomorrow 07/07. I told her I would let the care team know and we would get back to her with her new start date and time.Please advise on what date we can schedule her to start radiation. OR HRIS ANALYST documented in this encounter Plan of Treatment Not on file documented as of this encounter Visit Diagnoses Not on filedocumented in this encounter
--- OUTSIDE RECORDS SUMMARY | 2023-10-06 14:46 | XMS_ITS | Encounter Summary ---
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 [address] [place] [address] [facility] Referral ID Status Reason Start Date Expiration Date V isits Requested Visits Authorized [id number] Authorized 06/28/2023 06/15/2024 30 30 Encounter Details Date Type Department Care Team (Latest Contact Info) Description 07/20/2023 3:45 PM POULTRYMAN - 07/20/2023 11:59 PM [facility] Hospital Encounter Department of Radiation Oncology in [place], [place] [address] [place] [address] Po Light M.D. [address] [place] [phone] Discharge Disposition: Home or Self Care Social History Tobacco Use Types Packs/Day Years Used Date Smoking Tobacco: Never Smokeless Tobacco: Never Alcohol Use Standard Drinks/Week Comments Not Currently 0 (1 standard drink = 0.6 oz pur e alcohol) [facility] Utilities Answer Date Recorded In the past 12 months has e [employer], gas, oil, or water company threatened to [...] your living situation today? I have a [facility] place to live 07/19/2023 Sex and Gender Information Value Date Recorded Sex Assigned at Female 07/19/2023 9:21 AM POULTRYMAN Gender Identity Female 07/19/2023 9:21 AM POULTRYMAN Sexual Orientation Straight 07/19/2023 9: 21 AM POULTRYMAN documented as of this encounter Medications at [...]
--- OUTSIDE RECORDS SUMMARY | 2023-10-06 14:46 | XMS_ITS | Encounter Summary ---
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 [address] [place] [address] [facility] Region Referral ID Status Reason Start Date Expiration Date Visits Re quested Visits Authorized [id number] Closed 06/16/2023 06/15/2024 1 1 Encounter Details Date Type Department Care Team (Latest Contact Info) Description 06/29/2023 2:43 PM GASTROENTEROLOGY TEACHER - 06/29/2023 4:21 PM GASTROENTEROLOGY TEACHER Hospital Encounter Department of Radiation Oncology in [place], [place] [address] [place] [phone] Po Light M.D. 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 Authorized by: Po Light M.D. Simulation was performed under physician supervision based on physician order in preparation for radiation therapy. Physician was immediately available to provide assistance and direction throughout the procedure. Written consent for treatment was completed or confirmed. The patient was appropriately identified and placed in the treatment position using the necessary immobilization to ensure a reproducible treatment position. Reference valentin were placed to facilitate marking of isocenter. Area scanned:Chest Contrast used for the simulation procedure: None Patient position: Head first supine and arms up Custom immobilization: Vac-shiloh Motion management: Breath-hold Bolus: Yes CT guidance: Following positioning of the patient, a series of slices was obtained to be utilized in treatment planning. CT images were transferred to the [employer] treatment planning system, after a reference isocenter was determined and marked. Segmentation and treatment planning will take place prior to treatment delivery. Patient set up and imaging was appropriate and completed without incident. Slip Cover Seamstress use:No ROENTEROLOGY TEACHER Associated attestation - Po Light M.D. - 06/29/2023 4:16 PM GASTROENTEROLOGY TEACHER I was available for the entirety of the procedure but only present for wire placement and image review. I met with her and her friend Rebekah briefly in an exam room after an answered questions. Signed by: Po Light M.D. 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 06/29/2023 ??3:24 PM Initial Rad Onc Treatment Planning CT Simulation Performed by: Po Light M.D. Authorized by: Po Light M.D. ?? Po Light M.D. 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
--- OUTSIDE RECORDS SUMMARY | 2023-10-06 14:46 | XMS_ITS | Encounter Summary ---
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 [address] [place] [address] [facility] Referral ID Status Reason Start Date Expiration Date V isits Requested Visits Authorized [id number] Authorized 06/28/2023 06/15/2024 30 30 Encounter Details Date Type Department Care Team (Latest Contact Info) Description 07/23/2023 3:29 PM LABORER GOLF COURSE - 07/23/2023 11:59 PM [facility] Hospital Encounter Department of Radiation Oncology in [place], [place] [address] [place] [address] Po Light M.D. [address] [place] [address] Discharge Disposition: Home or Self Care Social History Tobacco Use Types Packs/Day Years Used Date Smoking Tobacco: Never Smokeless Tobacco: Never Alcohol Use Standard Drinks/Week Comments Not Currently 0 (1 standard drink = 0.6 oz pur e alcohol) [facility] Utilities Answer Date Recorded In the past 12 months has e [employer], gas, oil, or water company threatened to [...] your living situation today? I have a [facility] place to live 07/19/2023 Sex and Gender Information Value Date Recorded Sex Assigned at Female 07/19/2023 9:21 AM LABORER GOLF COURSE Gender Identity Female 07/19/2023 9:21 AM LABORER GOLF COURSE Sexual Orientation Straight 07/19/2023 9: 21 AM LABORER GOLF COURSE documented as of this encounter Medications at [...]
--- OUTSIDE RECORDS SUMMARY | 2023-10-06 14:46 | XMS_ITS | Encounter Summary ---
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 [address] [place] [address] [facility] Referral ID Status Reason Start Date Expiration Date V isits Requested Visits Authorized [id number] Authorized 06/28/2023 06/15/2024 30 30 Encounter Details Date Type Department Care Team (Latest Contact Info) Description 07/21/2023 3:29 PM GARMENT MANUFACTURER - 07/21/2023 11:59 PM [facility] Hospital Encounter Department of Radiation Oncology in [place], [place] [address] [place] [address] Po Light M.D. [address] [place] [phone] Discharge Disposition: Home or Self Care Social History Tobacco Use Types Packs/Day Years Used Date Smoking Tobacco: Never Smokeless Tobacco: Never Alcohol Use Standard Drinks/Week Comments Not Currently 0 (1 standard drink = 0.6 oz pur e alcohol) [facility] Utilities Answer Date Recorded In the past 12 months has e [employer], gas, oil, or water company threatened to [...] your living situation today? I have a [facility] place to live 07/19/2023 Sex and Gender Information Value Date Recorded Sex Assigned at Female 07/19/2023 9:21 AM GARMENT MANUFACTURER Gender Identity Female 07/19/2023 9:21 AM GARMENT MANUFACTURER Sexual Orientation Straight 07/19/2023 9: 21 AM GARMENT MANUFACTURER documented as of this encounter Medications at [...]
--- OUTSIDE RECORDS SUMMARY | 2023-10-06 14:46 | XMS_ITS | Encounter Summary ---
Author Name Unknown Organization [facility] Address [address] [place] [address] Care Team Providers Care Pipe Fitter Name Role Phone Unavailable Primary Care Provider Unavailabl e Reason for Referral * Outpatient (Routine) - Authorized Specialty Diagnoses / Procedures Referred By Lorie mohan Referred To Contact Radiation Oncology Po Light M.D. [address] [place] [phone] [facility] Region Referral ID Status Reason Start Date Expiration Date V isits Requested Visits Authorized [id number] Authorized 06/16/2023 06/15/2026 10 10 ER TRIMMER Reason for Visit * Outpatient (Routine) - Authorized Specialty Diagnoses / Procedures Referred By Lorie mohan Referred To Contact Radiation Oncology Po Light M.D. [address] [place] [phone] [facility] Region Referral ID Status Reason Start Date Expiration Date V isits Requested Visits Authorized [id number] Authorized 06/16/2023 06/15/2026 10 10 Encounter Details Date Type Department Care Team (Latest Contact Info) Description 07/26/2023 3:28 PM RUBBER TRIMMER - 07/26/2023 4:12 PM RUBBER TRIMMER Hospital Encounter Department of Radiation Oncology in [place], [place] [address] [place] [phone] Po Light M.D. [address] [place] [phone] Maddy Avila R.N. 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 I have a [facility] place to live 07/19/2023 Sex and Gender Information Value Date Recorded Sex Assigned at Female 07/19/2023 9:21 AM RUBBER TRIMMER Gender Identity Female 07/19/2023 9:21 AM RUBBER TRIMMER Sexual Orientation Straight 07/19/2023 9: 21 AM RUBBER TRIMMER documented as of this encounter Medications at [...] as of this encounter Progress Notes * Maddy Avila R.N. - 07/26/2023 4:15 PM CST Mepitel re applied. 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
--- OUTSIDE RECORDS SUMMARY | 2023-10-06 14:46 | XMS_ITS | Encounter Summary ---
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 [address] [place] [address] [facility] Region Referral ID Status Reason Start Date Expiration Date V isits Requested Visits Authorized [id number] Authorized 06/16/2023 06/15/2024 10 10 Encounter Details Date Type Department Care Team (Latest Contact Info) Description 07/21/2023 3:29 PM EMERGENCY MEDICAL TECHNICIAN BASIC - 07/21/2023 5:27 PM EMERGENCY MEDICAL TECHNICIAN BASIC Hospital Encounter Department of Radiation Oncology in [place], [place] [address] [place] [phone] Po Light M.D. 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 I have a [facility] place to live 07/19/2023 Sex and Gender Information Value Date Recorded Sex Assigned at Female 07/19/2023 9:21 AM EMERGENCY MEDICAL TECHNICIAN BASIC Gender Identity Female 07/19/2023 9:21 AM EMERGENCY MEDICAL TECHNICIAN BASIC Sexual Orientation Straight 07/19/2023 9: 21 AM EMERGENCY MEDICAL TECHNICIAN BASIC documented as of this encounter Last Filed Vital Signs Vital Sign Reading Time Taken Comments Blood Pressure - - Pulse - - Temperature 36.8 ??C (98.2 ??F) 07/21/2023 4:01 PM CS T Respiratory Rate - - Oxygen Saturation - - Inhaled Oxygen Concentration - - Weight 57 kg (125 lb 10.6 oz) 07/21/2023 4:01 PM EMERGENCY MEDICAL TECHNICIAN BASIC Height - - Body Mass Index - [...] Progress Notes * Po Light M.D. - 07/21/2023 4:15 PM CST SUBJECTIVE CHIEF COMPLAINT/REASON FOR VISIT Evaluation for side effects while receiving radiation treatment for 1. 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 ([id number]) HISTORY OF PRESENT ILLNESS [facility] 47 y.o. female with Stage IA (pT3 (9.5 cm), pN0(sn), cM0, R1 (2 mm anterior) G1, ER+, UT+, HER2-,Oncotype DX score: 10) invasive lobular carcinoma [...] (cGy) First Treatment Last Treatment Elapsed Days [id number] 07/19/2023 07/21/2023 2 Course Summary 07/19/2023 07/21/2023 2 The patient was seen and examined today with Dr. Light. The patient reports to be feeling well overall. She denies any side effects from radiation at this time. She is applying Mometasone and lotion to right neck and back. PATIENT REPORTED SYMPTOM SCREEN FATIGUE (Scale: 0 = no fatigue; 10 = worst fatigue you can imagine): 0 PAIN (Scale: 0 = no pain; 10 = worst pain you can imagine): 1 OVERALL QUALITY OF LIFE (Scale: 0 = as bad as can be; 10 = as good as can be): 9 OBJECTIVE Temp 36.8 ??C (Temporal) Wt 57 kg PHYSICAL EXAMINATION General: Alert and oriented, in no apparent distress. ASSESSMENT / PLAN #1 Stage IA (pT3, pN0(sn), cM0, G1, ER+, UT+, HER2-) invasive lobular carcinoma of the right [...] is tolerating radiation treatment well overall. Mepitel was applied yesterday to treatment field. She can continue to apply Mometasone and lotion to right neck and right upper back twice daily, waiting 30 minutes in between Mometasone and lotion application. She will continue with radiation treatment as planned. She can contact our care team with any questions or concerns. Signed by: Ev Mcguire R.N. 07/21/2023 4:17 PM EMERGENCY MEDICAL TECHNICIAN BASIC I saw and evaluated the patient and participated in the gardner portions of the service. I reviewed thedocumentation of Ev Mcguire R.N. and agree with the findings and plan. The patient appears well on exam. She is tolerating treatment well. We reviewed her localization imaging together today.She will continue with treatment as planned. Signed by: Po Light M.D. 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
--- OUTSIDE RECORDS SUMMARY | 2023-10-06 14:46 | XMS_ITS | Encounter Summary ---
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 [address] [place] [address] [facility] Referral ID Status Reason Start Date Expiration Date V isits Requested Visits Authorized [id number] Authorized 06/28/2023 06/15/2024 30 30 Encounter Details Date Type Department Care Team (Latest Contact Info) Description 07/22/2023 3:25 PM FILM EDITOR - 07/22/2023 11:59 PM [facility] Hospital Encounter Department of Radiation Oncology in [place], [place] [address] [place] [address] Po Light M.D. [address] [place] [address] Discharge Disposition: Home or Self Care Social History Tobacco Use Types Packs/Day Years Used Date Smoking Tobacco: Never Smokeless Tobacco: Never Alcohol Use Standard Drinks/Week Comments Not Currently 0 (1 standard drink = 0.6 oz pur e alcohol) [facility] Utilities Answer Date Recorded In the past 12 months has e [employer], gas, oil, or water company threatened to [...] your living situation today? I have a [facility] place to live 07/19/2023 Sex and Gender Information Value Date Recorded Sex Assigned at Female 07/19/2023 9:21 AM FILM EDITOR Gender Identity Female 07/19/2023 9:21 AM FILM EDITOR Sexual Orientation Straight 07/19/2023 9: 21 AM FILM EDITOR documented as of this encounter Medications at [...]
--- OUTSIDE RECORDS SUMMARY | 2023-10-06 14:46 | XMS_ITS | Encounter Summary ---
Author Name Unknown Organization [facility] Address [address] [place] [address] Care Team Providers Care Mushroom Cutter Name Role Phone Unavailable Primary Care Provider Unavailabl e Reason for Referral * Specialty Diagnoses / Procedures Referred By Lorie t Referred To Contact Kristel Pozo P.A.-C., M.S. [address] [place] [phone] [facility] Region Referral ID Status Reason Start Date Expiration Date Visits Re quested Visits Authorized G GRINDER Encounter Details Date Type Department Care Team (Latest Contact Info) Description 07/23/2023 2:55 PM SWING GRINDER - 07/26/2023 9:07 AM SWING GRINDER Hospital Encounter Department of Radiation Oncology in [place], [place] [address] [place] [address] Po Light M.D. 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 I have a [facility] place to live 07/19/2023 Sex and Gender Information Value Date Recorded Sex Assigned at Female 07/19/2023 9:21 AM SWING GRINDER Gender Identity Female 07/19/2023 9:21 AM SWING GRINDER Sexual Orientation Straight 07/19/2023 9: 21 AM SWING GRINDER documented as of this encounter Last Filed Vital Signs Vital Sign Reading Time Taken Comments Blood Pressure - - Pulse - - Temperature - - Respiratory Rate - - Oxygen Saturation - - Inhaled Oxygen Concentration - - Weight 57 kg (125 lb 10.6 oz) 07/23/2023 9:03 AM SWING GRINDER Height - - Body Mass Index - [...] of this encounter Progress Notes * Maddy Avila, R.N. - 07/23/2023 3:15 PM CST Patient was educated on side effects of radiation therapy. Their questions were answered to the best of my ability. The patient was encouraged to contact the team at any point, with questions or concerns. G GRINDER documented in this encounter Plan of Treatment Scheduled Referrals Name Type Priority Associated Diagnoses Order Schedule Radiation Oncology - Nurse education visit (clinic) Outpatient Referral Routine 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 Right (HCC) Once for 1 Occurrences starting 07/23/2023 until 07/23/2023 documented as of this encounter Visit Diagnoses Diagnosis 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 Right (HCC) documented in this encounter
--- OUTSIDE RECORDS SUMMARY | 2023-10-06 14:46 | XMS_ITS | Clinical Summary ---
Author Name Unknown Organization [facility] Address [place], [place] [address] Care Team Providers Care Video Production Assistant Name Role Phone Janusz Cheema MD Primary Care Provider [phone] Allergies Active Allergy Reactions Criticality Noted Date [...] 10/30/2020 Active spironolactone (ALDACTONE) 25 mg tablet 08/26/2022 Active balsalazide (COLAZAL) 750 mg capsuleIndications [...] hours prior to colonoscopy appointment. 4000 mL 04/09/2023 Active Active Problems Problem Noted Date Diagnosed Date Ulcerative colitis 08/06/2009 Overview: Colonoscopy 10/2012 normal repeat in 3 years Colonoscopy 03/2018 minimal inflammation, repeat in 5 years Colonoscopy 05/2023 quiescent ulcerative colitis, repeat in 5 years Social History Tobacco [...] CDT Respiratory Rate 12 07/06/2012 3:32 PM HYDRO STATION OPERATOR Oxygen Saturation 97% 08/27/2022 3:58 PM CDT Inhaled Oxygen Concentration - - Weight 57.6 kg (126 lb 14.4 oz) 08/27/2022 3:58 PM CDT Height 161.6 cm (5' 3.62) 09/22/2017 4:00 PM CD T Body Mass Index 22.04 09/22/2017 4:00 PM CDT Plan of Treatment Upcoming Encounters Date Type Department Care Team (Latest Contact Info) Description 03/06/2024 7:15 AM CDT Hospital Encounter [facility] [address] [place] [address] Andrei Jenkins MD [address] [address] 03/06/2024 7:15 AM CDT - 03/06/2024 11:45 AM CDT Surgery [facility] [address] [place] [address] Andrei Jenkins MD [address] [facility] [address] [address] Right latissimus flap breast reconstruction with Tissue flat finisher, left tissue flat finisher with possible cadaver dermal graft Scheduled Procedures Name Priority Associated Diagnoses Date/Ti me RECONSTRUCTION BREAST WITH LATISSIMUS DORSI FLAP WITH TISSUE GARMENT PRESSER Elective s/p mastectomy 03/06/2024 7:15 AM CDT Health Maintenance Due Date Last Done Comments [...] age 45-75 2022 Influenza for age 9-49 01/30/2024 Colonoscopy through age 75 06/28/202806/28, 06/28/2023, 06/28/2023, Additional history exists Procedures Procedure Name Priority Date/Time Associated Diagnosis Comments COLONOSCOPY SCREENING Routine 06/28/2023 8:05 AM HYDRO STATION OPERATOR Ulcerative colitis without complications, unspecified location (HC) Bloating Fatigue, unspecified type Family history of celiac disease COMMUNITY HEALTH EDUCATION COORDINATOR THIN PREP PAP SCREEN IMAGED Routine 02/28/2019 9:00 AM CDT from Last 3 Months or Most Recently Relevant to Health Maintenance Results * SCAN-COLONOSCOPY (06/28/2023 12:00 AM HYDRO STATION OPERATOR) Scanner OTHER * COMMUNITY HEALTH EDUCATION COORDINATOR THIN PREP PAP SCREEN IMAGED (02/28/2019 9:00 AM CDT) Case Report Gynecologic Cytology Report ? Case: [id number] ? Authorizing Provider: ??Paty Campos ??Collected: ? 02/28/2019 0900 ? M, MD ? Ordering Location: ? [facility] ?Received: ?03/01/2019 1732 ? First Screen: ?Gabi Fitzpatrick ? Specimen: ?COMMUNITY HEALTH EDUCATION COORDINATOR ThinPrep Vial Screening, Cervical/Vaginal ? 03/12/2019 2:24 PM CDT [facility] INTERPRETATION/ RESULT NEGATIVE FOR INTRAEPITHELIAL LESION OR MALIGNANCY (NIL) (none) 03/12/2019 2:24 PM CDT [facility] IMEN ADEQUACY Satisfactory for evaluation No endocervical component seen 03/12/2019 2:24 PM CDT [facility] HPV REQUEST HPV and PAP 03/12/2019 2:24 PM CDT [facility] Date of LMP 02/17/2019 03/12/2019 2:24 PM CDT [facility] Last Pap Date 02/09/2014 03/12/2019 2:24 PM CDT [facility] Last Pap Result NIL 9 2:24 PM CDT [facility] Automated Review Successful 03/12/2019 2:24 PM CDT [facility] Comment:Specimen processed s uccessfully by automated employment assistant device, Swarm[employer] Imaging System, [employer] ANCILLARY TESTING COMMUNITY HEALTH EDUCATION COORDINATOR HPV Ordered, Please see separate report 03/12/2019 2:24 PM CDT [facility] Note The pap test is a screening technique, not a diagnostic procedure. ??It is used primarily to screen for squamous cancers and precursor lesions. ??Published studies have shown that it is subject to both false negative and false positive results. ??The pap test should not be used as the sole means to diagnose or exclude pre-malignant and malignant lesions. Cytology is screened and interpreted at [facility] - [address], [place] [address] and [facility] - [address]; [place] [address] and [facility] - [address]; [place] [address] and [facility] [address]; [place] [address] 03/12/2019 2:24 PM CDT [facility] Other (Cervical/Vagina l) 02/28/2019 9:00 AM CDT 03/01/2019 5:32 PM CDT Paty Campos MD PATHOLOGY/ [facility] [address] [place] [address], [place] from Last 3 Months or Most Recently Relevant to Health Maintenance Care Teams Video Production Assistant Relationship Specialty Start Date End Date Janusz Cheema MD [address] [place] [address] PCP - General Family Practice 06/17/23
--- NOTE | 2023-10-06 15:00 | CT_ITS ---
Patient: NIKHIL SWANSON Facility:?[facility] Patient ID:?[id number] Site Patient ID:?[id number]. Site :?[id number] Study:?CT-Chest W/ ISOVUE 370-10/06/2023 3:10:36 PM Ordering Physician:MAXINE Final Report: INDICATION: BREAST CANCER S/P BILAT Mastectomy, F/U SURGICAL CHANGES TECHNIQUE: CT chest without contrast. COMPARISON: PET-CT July 2023. FINDINGS: Lungs and Airways: Trace biapical subpleural fibrosis. Calcified granulomas. No mass or consolidation. Stable 3 millimeter right lower lobe indeterminate pulmonary nodule, axial image 56. Right upper lobe linear airspace opacity likely linear fibrosis. No new suspicious pulmonary nodules. No endoluminal lesion. Heart and Mediastinum: The visualized portions of the thyroid are normal. No axillary or supraclavicular lymphadenopathy. No mediastinal, hilar or retrocrural lymphadenopathy. Normal heart size. Normal caliber aorta. Pleura: The pleural spaces are normal. 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 Bones and soft tissues: Right chest subcutaneous stranding, similar to previous exam, likely postsurgical. Changes of bilateral mastectomies. No suspicious lytic or blastic lesions. IMPRESSION: 1. No discrete worsening disease within the chest. 2. Stable 3 millimeter right lower lobe indeterminate pulmonary nodule. Please note that all CT scans at this facility use dose modulation, iterative reconstruction, and/or weight-based dosing when appropriate to reduce radiation dose to as low as reasonably achievable. Dictated by Ang Phillips MD @ 10/07/2023 2:02:03 PM Signed by:?Ang Phillips MD @10/07/2023 2:02:03 PM (Electronic Signature)
== END 2023-10-06 14:43 | disposition home or self-care (01) ==
LOC: CT 14:42
PROVIDERS: PCP Family Medicine; Visit Provider Internal Medicine Hematology & Oncology
DX: C50.919 Malignant neoplasm of unspecified site of unspecified female breast (principal); R91.1 Solitary pulmonary nodule
CPT/HCPCS: 71260; Q9967

== ENCOUNTER 2023-10-11 14:30 | Outpatient (RCR) | payer OTHER, SELFPAY ==
--- NOTE | 2023-07-07 16:15 | ONC.NURNOTE ---
Call to patient to let her know Dr. Ji had reviewed her PET/CT. Patient informed that the findings were most likely a result of post surgical/inflammatory changes. Dr. Ji will plan to repeat a chest CT in 3-6 months for close follow up. A copy of the report was also faxed to [facility] for their review. Patient currently has COVID, so her radiation treatments were delayed until 07/19.
== END 2023-12-13 23:59 | disposition home or self-care (01) ==
LOC: CCIC 14:30
PROVIDERS: PCP Family Medicine; Visit Provider Internal Medicine Hematology & Oncology
DX: C50.911 Malignant neoplasm of unspecified site of right female breast (principal); Z17.0 Estrogen receptor positive status [ER+]; Z79.810 Long term (current) use of selective estrogen receptor modulators (SERMs); Z90.13 Acquired absence of bilateral breasts and nipples; K52.9 Noninfective gastroenteritis and colitis, unspecified
CPT/HCPCS: 99202; 99205; 99214; 99215; G0463

== ENCOUNTER 2024-02-09 15:52 | Outpatient (CLI) | payer OTHER, SELFPAY ==
--- OUTSIDE RECORDS SUMMARY | 2024-02-09 15:56 | XMS_ITS | Encounter Summary ---
Author Organization [facility] Address [address] [place] [address] Care Team Providers Care Clip Wrapper Name Role Phone Unavailable Primary Care Provider Unavailabl e Reason for Visit * Reason Comments Med Refill Encounter Details Date Type Department Care Team (Late st Contact Info) Description 11/24/2023 Refill Department of Oncology in [place], [place] [address] [place] [address] Kourtney Ji M.D. [address] [place] [address] Med Refill Social History Tobacco Use Types Packs/Day Years Used Date Smoking Tobacco: Never Smokeless Tobacco: Never Alcohol Use Standard Drinks/Week Comments Not Currently 0 (1 standard drink = 0.6 oz pur e alcohol) [facility] Utilities Answer Date Recorded In the past 12 months has th e electric, gas, oil, or water [employer] threatened to shut off services in your [...] living situation today? I have a [facility] place to live 07/19/2023 Sex and Gender Information Value Date Recorded Sex Assigned at Female 07/19/2023 9:21 AM MANAGER EMERGENCY DEPARTMENT Gender Identity Female 07/19/2023 9:21 AM MANAGER EMERGENCY DEPARTMENT Sexual Orientation Straight 07/19/2023 9: 21 AM MANAGER EMERGENCY DEPARTMENT documented as of this encounter Miscellaneous Notes * Telephone Encounter - Maddy Avila RTravonN. - 11/29/2023 2:00 PM CDT Kriss Hand is working with prescription through [facility]. documented in this encounter Plan of Treatment Not on file documented as of this encounter Visit Diagnoses Not on filedocumented in this encounter
--- OUTSIDE RECORDS SUMMARY | 2024-02-09 15:56 | XMS_ITS | Referral Summary ---
Author Organization [facility] Address [address] [place] [address] Care Team Providers Care Pre School Teacher Name Role Phone Unavailable Primary Care Provider Unavailabl e Source Comments Patient records contain information from all sites at [facility]. For routine questions regarding patient records, call [phone] during business hours, M-F 8:00 AM - 5:00 PM Central Time. Record requests for emergency care only can be directed to [phone] at any time.[facility] Encounters Date Type Department Care Team Description 11/24/2023 Refill Department of Oncology in [place], [place] [address] [place] [address] Kourtney Ji M.D. Med Refill 11/24/2023 Refill Department of Oncology in [place], [place] [address] [place] [address] Kourtney Ji M.D. Med Refill 11/24/2023 Refill Department of Oncology in [place], [place] [address] [place] [address] Kourtney Ji M.D. Med Refill from Last 3 Months Allergies Active Allergy [...] 05/27/2023:Stage 0(pTis (DCIS), cN0, cM0, G1, ER+, MS: Not Assessed, HER2: Not Assessed) - Unsigned 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 Right 06/09/2023 Cancer Staging:Pathologic stage from 05/27/2023:Stage IA(pT3, pN0(sn), cM0, G1, ER+, MS+, HER2-, Oncotype DX score: 10) - Unsigned Pathologic: Unsigned Social History Tobacco Use Types Packs/Day Years Used Date Smoking Tobacco: Never Smokeless Tobacco: Never Alcohol Use Standard Drinks/Week Comments Not Currently 0 (1 standard drink = 0.6 oz pur e alcohol) [facility] Utilities Answer Date Recorded In the past 12 months has [employer], gas, oil, or water [employer] threatened to shut off services in your [...] your living situation today? I have a [facility] place to live 07/19/2023 Sex and Gender Information Value Date Recorded Sex Assigned at Female 07/19/2023 9:21 AM RESEARCH & ANALYTICS MANAGER Gender Identity Female 07/19/2023 9:21 AM RESEARCH & ANALYTICS MANAGER Sexual Orientation Straight 07/19/2023 9: 21 AM RESEARCH & ANALYTICS MANAGER Last Filed Vital Signs Vital Sign Reading Time Taken Comments Blood Pressure 104/57 06/17/2023 9:23 AM RESEARCH & ANALYTICS MANAGER Pulse 83 06/17/2023 9:23 AM RESEARCH & ANALYTICS MANAGER Temperature 36.7 ??C (98.1 ??F) 08/18/2023 3:59 PM CD T Respiratory Rate - - Oxygen Saturation - - Inhaled Oxygen Concentration - - Weight 56.7 kg (125 lb) 08/18/2023 3:59 PM CDT Height - - Body Mass Index - - Plan of Treatment Not on file Procedures Procedure Name Priority Date/Time Associated Diagnosis Comments OUTSIDE MG MAMMOGRAM Routine 05/27/2023 1:35 PM RESEARCH & ANALYTICS MANAGER from Last 3 Months or Most Recently Relevant to Health Maintenance Results * MM surgical specimen LT-Outside Mammogram (05/27/2023 1:35 PM RESEARCH & ANALYTICS MANAGER) Narrative [facility] - 06/07/2023 11:49 AM RESEARCH & ANALYTICS MANAGER This order has been created and auto-finalized [...]
--- OUTSIDE RECORDS SUMMARY | 2024-02-09 15:56 | XMS_ITS | Encounter Summary ---
Author Organization [facility] Address [address] [place] [address] Care Team Providers Care Customer Service Dispatcher Name Role Phone Unavailable Primary Care Provider Unavailabl e Reason for Visit * Reason Comments Med Refill Encounter Details Date Type Department Care Team (Late st Contact Info) Description 11/24/2023 Refill Department of Oncology in [place], [place] [address] [place] [address] Kourtney Ji M.D. [address] [place] [address] Med Refill Social History Tobacco Use Types Packs/Day Years Used Date Smoking Tobacco: Never Smokeless Tobacco: Never Alcohol Use Standard Drinks/Week Comments Not Currently 0 (1 standard drink = 0.6 oz pur e alcohol) [facility] Utilities Answer Date Recorded In the past 12 months has th e electric, gas, oil, or water [employer] threatened to shut off services in your [...] your living situation today? I have a [facility] place to live 07/19/2023 Sex and Gender Information Value Date Recorded Sex Assigned at Female 07/19/2023 9:21 AM HAT CHECKER Gender Identity Female 07/19/2023 9:21 AM HAT CHECKER Sexual Orientation Straight 07/19/2023 9: 21 AM HAT CHECKER documented as of this encounter Plan of Treatment Not on file documented as of this encounter Visit Diagnoses Not on filedocumented in this encounter
--- OUTSIDE RECORDS SUMMARY | 2024-02-09 15:56 | XMS_ITS | Encounter Summary ---
Author Organization [facility] Address [address] [place] [address] Care Team Providers Care Technical Sales Representative Name Role Phone Unavailable Primary Care Provider Unavailabl e Reason for Visit * Reason Comments Med Refill Encounter Details Date Type Department Care Team (Late st Contact Info) Description 11/24/2023 Refill Department of Oncology in [place], [place] [address] [place] [address] Kourtney Ji M.D. [address] [place] [address] Med Refill Social History Tobacco Use Types Packs/Day Years Used Date Smoking Tobacco: Never Smokeless Tobacco: Never Alcohol Use Standard Drinks/Week Comments Not Currently 0 (1 standard drink = 0.6 oz pur e alcohol) [facility] Utilities Answer Date Recorded In the past 12 months has th e electric, gas, oil, or water [employer] threatened to shut off services in your [...] your living situation today? I have a [facility] place to live 07/19/2023 Sex and Gender Information Value Date Recorded Sex Assigned at Female 07/19/2023 9:21 AM NEW CAR INSPECTOR Gender Identity Female 07/19/2023 9:21 AM NEW CAR INSPECTOR Sexual Orientation Straight 07/19/2023 9: 21 AM NEW CAR INSPECTOR documented as of this encounter Plan of Treatment Not on file documented as of this encounter Visit Diagnoses Not on filedocumented in this encounter
--- OUTSIDE RECORDS SUMMARY | 2024-02-09 15:56 | XMS_ITS | Clinical Summary ---
Author Organization [facility] Address [address] [place] [address] Care Team Providers Care Planning Specialist Name Role Phone Unavailable Primary Care Provider Unavailabl e Source Comments Patient records contain information from all sites at [facility]. For routine questions regarding patient records, call [phone] during business hours, M-F 8:00 AM - 5:00 PM Central Time. Record requests for emergency care only can be directed to [phone] at any time.[facility] Allergies Active Allergy Reactions Criticality Noted Date [...] 05/27/2023:Stage 0(pTis (DCIS), cN0, cM0, G1, ER+, SC: Not Assessed, HER2: Not Assessed) - Unsigned 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 Right 06/09/2023 Cancer Staging:Pathologic stage from 05/27/2023:Stage IA(pT3, pN0(sn), cM0, G1, ER+, SC+, HER2-, Oncotype DX score: 10) - Unsigned Pathologic: Unsigned Encounters Date Type Department Care Team Description 11/24/2023 Refill Department of Oncology in [place], [place] [address] [place] [address] Kourtney Ji M.D. Med Refill 11/24/2023 Refill Department of Oncology in [place], [place] [address] [place] [address] Kourtney Ji M.D. Med Refill 11/24/2023 Refill Department of Oncology in [place], [place] [address] [place] [address] Kourtney Ji M.D. Med Refill from Last 3 Months Family History Medical History Relation Name Comments Breast cancer Cousin Maternal Relation Name Status Comments Cousin Social History Tobacco Use Types Packs/Day Years Used Date Smoking Tobacco: Never Smokeless Tobacco: Never Alcohol Use Standard Drinks/Week Comments Not Currently 0 (1 standard drink = 0.6 oz pur e alcohol) [facility] Utilities Answer Date Recorded In the past 12 months has [employer], gas, oil, or water [employer] threatened to shut off services in your [...] your living situation today? I have a [facility] place to live 07/19/2023 Sex and Gender Information Value Date Recorded Sex Assigned at Female 07/19/2023 9:21 AM MOLD RELEASE WORKER Gender Identity Female 07/19/2023 9:21 AM MOLD RELEASE WORKER Sexual Orientation Straight 07/19/2023 9: 21 AM MOLD RELEASE WORKER Last Filed Vital Signs Vital Sign Reading Time Taken Comments Blood Pressure 104/57 06/17/2023 9:23 AM MOLD RELEASE WORKER Pulse 83 06/17/2023 9:23 AM MOLD RELEASE WORKER Temperature 36.7 ??C (98.1 ??F) 08/18/2023 3:59 [...] 02/28/2022 02/28/2019 Depression Screening (Annual PHQ-2) 05/31/2023 Influenza Vaccine (#1) 2024 , 03/07/2020, 03/17/2019, Additional history exists DTaP,Tdap,and Td Vaccines (3 - Td or Tdap) 02/24/2028 02/23/2018, 04/20/2008 Colonoscopy 06/28/2033 06/28/2023 Colorectal Cancer Screening 06/28/2033 Mammogram Discontinued 05/27/2023, 1212/2022, 05/21/2023, Additional history exists HPV Vaccines Aged Out No longer eligi ble based on patient's age to complete this topic Procedures Procedure Name Priority Date/Time Associated Diagnosis Comments OUTSIDE MG MAMMOGRAM Routine 05/27/2023 1:35 PM MOLD RELEASE WORKER from Last 3 Months or Most Recently Relevant to Health Maintenance Results * MM surgical specimen LT-Outside Mammogram (05/27/2023 1:35 PM MOLD RELEASE WORKER) Narrative [facility] - 06/07/2023 11:49 AM MOLD RELEASE WORKER This order has been created and auto-finalized [...]
--- OUTSIDE RECORDS SUMMARY | 2024-02-09 15:56 | XMS_ITS ---
Author Organization [facility] Address [address] [place] [address] Care Team Providers Care Esthetics Instructor Name Role Phone Unavailable Unavailable Unavailable Surgery Details Not on file Complications Check Surgery Details section. Procedure Estimated Blood Loss Check Surgery Details section. Procedure Findings Check Surgery Details section. Procedure Specimens Taken Check Surgery Details section.
--- OUTSIDE RECORDS SUMMARY | 2024-02-09 15:56 | XMS_ITS | Clinical Summary ---
Author Organization [facility] Address [place], [place] [address] Care Team Providers Care Civil Engineering Intern Name Role Phone Janusz Cheema MD Primary Care Provider [phone] Allergies Active Allergy Reactions Criticality Noted Date [...] spironolactone (ALDACTONE) 25 mg tablet 08/26/2022 Active polyethylene glycol-electrolyte (GOLYTELY) 236-22.74-6.74 -5.86 gram suspensionIndicati ons:Encounter for screening colonoscopy Drink 2 liters (half the bottle) the day before colonoscopy and 2 liters (remaining prep) 6 hours prior to colonoscopy appointment. 4000 mL 04/09/2023 Active balsalazide (COLAZAL) 750 mg capsuleIndications :Ulcerative colitis without complications, unspecified location (HC),Bloating,Fati paolo, unspecified type,Family history of celiac disease Take 1 Capsule (750 mg) by mouth three times daily. 270 Capsule 3 10/13/2023 Active Active Problems Problem Noted Date Diagnosed Date Ulcerative colitis 08/06/2009 Overview (06/29/2023): Colonoscopy 10/2012 normal repeat in 3 years [...] CDT Respiratory Rate 12 07/06/2012 3:32 PM PYTHON ENGINEER Oxygen Saturation 97% 08/27/2022 3:58 PM CDT Inhaled Oxygen Concentration - - Weight 57.6 kg (126 lb 14.4 oz) 08/27/2022 3:58 PM CDT Height 161.6 cm (5' 3.62) 09/22/2017 4:00 PM CD T Body Mass Index 22.04 09/22/2017 4:00 PM CDT Plan of Treatment Upcoming Encounters Date Type Department Care Team (Latest Contact Info) Description 03/06/2024 7:15 AM CDT Hospital Encounter [facility] [address] [place], [place] [id number] Andrei Jenkins MD [address] [facility] [address] [place] [address] 03/06/2024 7:15 AM CDT - 03/06/2024 11:45 AM CDT Surgery [facility] [address] [place] [address] Andrei Jenkins MD [address] [facility] [address] [place] [address] Right latissimus flap breast reconstruction with Tissue it telecom technician, left tissue it telecom technician with possible cadaver dermal graft Scheduled Procedures Name Priority Associated Diagnoses Date/Ti me RECONSTRUCTION BREAST WITH LATISSIMUS DORSI FLAP WITH TISSUE LABOR RELATIONS TEACHER Elective s/p mastectomy 03/06/2024 7:15 AM CDT Health Maintenance Due Date Last Done Comments Tdap 1988 Depression screening for age 12+ 1989 HIV for age 15-65 1992 Hepatitis C screening for age 18-79 10/18/1995 Tetanus booster 1997 BMI (ht and wt on same day) for age 18+ 09/22/2018 09/22/2017, 09/09/2016, 11/01/2015 Pap test for age 21-65 02/28/2022 9, 02/28/2019, 02/09/2014, Additional history exists Lipids for age 45-75 2022 Mammogram for age 45-75 2022 COVID-19 vaccine series (2022- season) 2024 07/24/2021, 06/30/2021 Influenza for age 9-49 01/30/2024 Colonoscopy through age 75 06/28/202806/28, 06/28/2023, 06/28/2023, Additional history exists Pneumococcal series for age 6-64 Aged Out No longer eligible based on patient's age to complete this topic Procedures Procedure Name Priority Date/Time Associated Diagnosis Comments COLONOSCOPY SCREENING Routine 06/28/2023 8:05 AM PYTHON ENGINEER Ulcerative colitis without complications, unspecified location (HC) Bloating Fatigue, unspecified type Family history of celiac disease HOUSE SITTER THIN PREP PAP SCREEN IMAGED Routine 02/28/2019 9:00 AM CDT from Last 3 Months or Most Recently Relevant to Health Maintenance Results * SCAN-COLONOSCOPY (06/28/2023 12:00 AM PYTHON ENGINEER) Scanner OTHER * HOUSE SITTER THIN PREP PAP SCREEN IMAGED (02/28/2019 9:00 AM CDT) Case Report Gynecologic Cytology Report ? Case: [id number] ? Authorizing Provider: ??Paty Campos ??Collected: ? 02/28/2019 0900 ? M, MD ? Ordering Location: ? [facility] ?Received: ?03/01/2019 1732 ? First Screen: ?Gabi Fitzpatrick ? Specimen: ?HOUSE SITTER ThinPrep Vial Screening, Cervical/Vaginal ? 03/12/2019 2:24 PM CDT [facility] INTERPRETATION/ RESULT NEGATIVE FOR INTRAEPITHELIAL LESION OR MALIGNANCY (NIL) (none) 03/12/2019 2:24 PM CDT [facility] IMEN ADEQUACY Satisfactory for evaluation No endocervical component seen 03/12/2019 2:[address] [facility] HPV REQUEST HPV and PAP 03/12/2019 2:[address] [facility] Date of LMP 02/17/2019 03/12/2019 2:[address] [facility] Last Pap Date 02/09/2014 03/12/2019 2:24 PM CDT [facility] Last Pap Result NIL 9 2:24 PM CDT [facility] Automated Review Successful 03/12/2019 2:[address] [facility] Comment:Specimen processed s uccessfully by automated fund raiser device, ThinPrep Imaging System, [employer] ANCILLARY TESTING HOUSE SITTER HPV Ordered, Please see separate report 03/12/2019 2:24 PM CDT [facility] Note The pap test is a [...] lesions. Cytology is screened and interpreted at [facility] - [address], [place] [address] and [facility] - [address]; [place] [address] [address] [facility] - [address]; [place] [address] and [facility] [address]; [place] [address] 03/12/2019 2:24 PM CDT [facility] Other (Cervical/Vagina l) 02/28/2019 9:00 AM CDT 03/01/2019 5:32 PM CDT Paty Campos MD PATHOLOGY/ CYTOLOGY [facility] [address] [place] [address], [place] from Last 3 Months or Most Recently Relevant to Health Maintenance Care Teams Civil Engineering Intern Relationship Specialty Start Date End Date Janusz Cheema MD [address] [place] [address] PCP - General Family Practice 06/17/23
--- OUTSIDE RECORDS SUMMARY | 2024-02-09 15:56 | XMS_ITS ---
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 Past Plans No past plan information found. Radiation Treatments * Plan Last Treated On Elapsed Days Fractions Treated Prescribed Fraction Dose Prescribed Total Dose [id number] 08/20/2023 32 8 of 8 220 cGy 1,760 cGy [id number] 08/10/2023 22 17 of 17 220 cGy 3,740 cGy Reference Point Last Treated On Elapsed Days Session Dose Total Dose [id number] 08/20/2023 32 220 cGy 5,500 cGy
== END 2024-02-09 15:53 | disposition home or self-care (01) ==
LOC: NFLDREF 15:54
PROVIDERS: PCP Family Medicine; Visit Provider Family Medicine
DX: Z13.228 Encounter for screening for other metabolic disorders (principal)
CPT/HCPCS: 80048

== ENCOUNTER 2024-04-11 08:59 | Outpatient (CLI) | payer OTHER, SELFPAY ==
--- OUTSIDE RECORDS SUMMARY | 2024-04-11 09:03 | XMS_ITS | Clinical Summary ---
Author Organization [facility] Address [place], [place] [address] Care Team Providers Care Collision Repair Technician Name Role Phone Janusz Cheema MD Primary Care Provider [phone] Allergies Active Allergy Reactions Criticality Noted Date Comments Azithromycin Rash 08/06/2009 Medications Medication Sig Dispensed Refills Start Date End Date Status balsalazide (COLAZAL) 750 mg capsuleIndications:Ul cerative colitis without complications, unspecified location (HC),Bloating,Fatigue , unspecified type,Family history of celiac disease Take 1 Capsule (750 mg) by mouth three times daily. 270 Capsule 3 10/13/2023 Active BIOTIN ORAL Take by mouth. Active calcium carbonate (CALTRATE) 600 mg calcium (1,500 mg) tablet Take 600 mg by mouth two times daily with meals. Active elderberry fruit (ELDERBERRY ORAL) Take by mouth. Active spironolactone (ALDACTONE) 25 mg tablet Take 75 mg by mouth once daily in the morning. Active LORazepam (ATIVAN) 1 mg tablet Take 1 mg by mouth 2 times daily if needed for Anxiety. Active ibuprofen (ADVIL; MOTRIN) 200 mg tablet Take 400 mg by mouth every 8 hours if needed for Headache. Active methocarbamoL (ROBAXIN) 750 mg tabletIndications:Def ect due to mastectomy Take 1 Tablet (750 mg) by mouth every 6 hours. 40 Tablet 03/12/2024 Active ondansetron (ZOFRAN ODT) 4 mg disintegrating tabletIndications:Def ect due to mastectomy Place 1 Tablet (4 mg) on the tongue every 6 hours if needed for Nausea/Vomiti ng. 15 Tablet 03/12/2024 Active oxyCODONE (ROXICODONE) 5 mg immediate release tabletIndications:Def ect due to mastectomy Take 1-2 Tablets (5-10 mg) by mouth every 4 hours if needed for Pain. 40 Tablet 03/12/2024 Active cephalexin (KEFLEX) 500 mg capsuleIndications:NV OPHYLAXIS Take 1 Capsule (500 mg) by mouth three times daily for 10 days. 30 Capsule 03/12/2024 03/22/2024 Active Problems Problem Noted Date Diagnosed Date Ulcerative colitis 08/06/2009 Overview (06/29/2023): Colonoscopy 10/2012 normal repeat in 3 years Colonoscopy 03/2018 minimal inflammation, repeat in 5 years Colonoscopy 05/2023 quiescent ulcerative colitis, repeat in 5 years Encounters Date Type Department Care Team Description 03/11/2024 7:40 AM CDT Anesthesia Event [facility] [address] [place] [address] Doe Ho MD Augustin, Joshua Ryan, DO 03/11/2024 7:15 AM CDT - 03/11/2024 11:45 AM CDT Surgery [facility] [address] [place] [address] Andrei Jenkins MD Right latissimus flap breast reconstruction with Tissue provider contracting consultant, left tissue provider contracting consultant breast reconstruction. 03/11/2024 5:38 AM CDT - 03/12/2024 2:30 PM CDT Hospital Encounter [facility] [address] [place] [address] Andrei Jenkins MD Defect due to mastectomy (Primary Dx) Discharge Disposition: Home Self Care 03/11/2024 Travel 03/03/2024 Travel from Last 3 Months Social History Tobacco Use Types Packs/Day Years Used Date Smoking Tobacco: Never Smokeless Tobacco: Never Tobacco Cessation:Counseling Given: Yes Alcohol Use Standard Drinks/Week Comments Yes 0 (1 standard drink = 0.6 oz pur e alcohol) 2-4 drinks/week Financial Resource Strain Answer Date R ecorded Difficulty of Paying Living Expenses Not on file 05/31/2021 Difficulty of Paying Living Expenses Not on file 05/31/2021 Sex and Gender Information Value Date Recorded Sex Assigned at Not on file Gender Identity Not on file Sexual Orientation Not on file Obstetrics History Last Filed Vital Signs Vital Sign Reading Time Taken Comments Blood Pressure 108/58 03/12/2024 7:30 AM CDT Pulse 72 03/12/2024 7:30 AM CDT Temperature 36.8 ??C (98.3 ??F) 03/12/2024 7:30 AM CD T Respiratory Rate 16 03/12/2024 7:30 AM CDT Oxygen Saturation 98% 03/12/2024 7:30 AM CDT Inhaled Oxygen Concentration - - Weight 56.7 kg (125 lb) 03/11/2024 6:27 AM CDT Height 164.5 cm (5' 4.75) 03/11/2024 6:27 AM CD T Body Mass Index 20.96 03/11/2024 6:27 AM CDT Plan of Treatment Health Maintenance Due [...] for age 45-75 2022 COVID-19 vaccine series ( season) 2024 07/24/2021, 06/30/2021 Influenza for age 9-49 01/30/2024 Colonoscopy through age 75 06/28/202806/28, 06/28/2023, 06/28/2023, Additional history exists Pneumococcal series for age 6-64 Aged Out No longer eligible based on patient's age to complete this topic Medical Devices Implanted Type Area Head Inspector And Center Marker Device Identifier Shelf Expiration Date Model / Serial / Lot [employer] Cpx 4 Plus Smooth Breast Tissue Climate Change Analyst 350cc Implanted:Qty: 1 on 03/11/2024 by Andrei Jenkins MD at [facility] Left: Breast [employer] 01/18/2028 [id number] / [id number] Description:[employer] CPX 4 plu s smooth breast tissue provider contracting consultant 350CC [employer] Cpx 4 Plus Smooth Breast Tissue Climate Change Analyst 350cc Implanted:Qty: 1 on 03/11/2024 by Andrei Jenkins MD at [facility] Right: Breast [employer] 01/18/2028 [id number] / [id number] Description:[employer] CPX 4 plu s smooth breast tissue provider contracting consultant 350CC Procedures Procedure Name Priority Date/Time Associated Diagnosis Comments ENDOTRACHEAL TUBE Routine 03/11/2024 7:5 7 AM CDT ENDOTRACHEAL TUBE Routine 03/11/2024 7:5 7 AM CDT ENDOTRACHEAL TUBE Routine 03/11/2024 7:5 7 AM CDT RECONSTRUCTION BREAST WITH TISSUE MONORAIL CRANE OPERATOR Elective 03/11/2024 7:20 AM CDT s/p mastectomy RECONSTRUCTION BREAST WITH LATISSIMUS DORSI FLAP WITH TISSUE MONORAIL CRANE OPERATOR Elective 03/11/2024 7:20 AM CDT s/p mastectomy HEMOGLOBIN Preop 03/11/2024 6:41 AM CDT GLUCOSE METER Timed 03/11/2024 6:40 AM CDT URINE Preop 03/11/2024 6:10 AM CDT SCAN-CARDIAC STRIP 03/11/2024 12 :00 AM CDT SCAN CORRESP-LABORATORY RESULTS 03/01/2024 1:22 PM CDT COLONOSCOPY SCREENING Routine 06/28/2023 8:05 AM CONTACT LENS MANUFACTURER Ulcerative colitis without complications, unspecified location (HC) Bloating Fatigue, unspecified type Family history of celiac disease POSTIE THIN PREP PAP SCREEN IMAGED Routine 02/28/2019 9:00 AM CDT from Last 3 Months or Most Recently Relevant to Health Maintenance Results * HCHG TUBE PR1, HCHG STYLET PR1, HCHG MOUTHPIECE PR1 (03/11/2024 7:57 AM CDT) Narrative Adalberto Graham CRNA - 03/11/2024 7:57 AM CDT Adalberto Graham, KIERAN ? 03/11/2024 ??7:57 AM Procedure: ETT Patient location during procedure: OR ETT Properties Mask Ventilation: easy Final Technique: direct laryngoscopy Type: straight Location: oral Cuffed: yes Tube Size: 7.0 mm Stylet: yes Laryngoscope Blade: Gage Blade Size: 2 Cormack-Lehane Grade View: 1 Insertion Attempts: 1 Placement Verification: auscultation, end tidal CO2 and symmetrical chest wall movement Assessment: pharynx clear, atraumatic and dentition unchanged Secured at: 21 Measured From: teeth Tooth guard used and removed: yes Difficulty: 0 (not difficult) Doe Ho MD ANESTHESIA PX NOTE O RDERABLES * (ABNORMAL) HEMOGLOBIN (03/11/2024 6:41 AM CDT) HEMOGLOBIN 11.9(L) 12.0 - 16.0 g/dL 03/11/2024 6:55 AM CDT [facility] MCV 90 80 - 100 fL 03/11/2024 6:55 AM CDT [facility] Blood BLOOD SPECIMEN / Unknown Venipuncture / Unknown 03/11/2024 6:41 AM CDT 03/11/2024 6:49 AM CDT Byron Langley DO HEMATOLOGY [facility] [address] [place] [address], * GLUCOSE METER (03/11/2024 6:40 AM CDT) GLUCOSE METER 98 65 - 100 mg/dL 03/11/2024 6:45 AM CDT [facility] Blood BLOOD SPECIMEN / Unknown 03/11/2024 6:40 AM CDT 03/11/2024 6:45 AM CDT Andrei Jenkins MD CHEMISTRY Performing Organization Address City/[facility]/ZIP Co de Phone Number [facility] [address] [place] [address], * Urine (03/11/2024 6:10 AM CDT) ,URIN E Negative Negative 03/11/2024 6:28 AM CDT [facility] Urine URINE SPECIMEN / Unknown Non-Blood / Unknown 03/11/2024 6:10 AM CDT 03/11/2024 6:19 AM CDT Andrei Jenkins MD URINE Performing Organization Address [facility] Co de Phone Number [facility] [address] [place] [address], * SCAN-CARDIAC STRIP (03/11/2024 12:00 AM CDT) Narrative 03/11/2024 12:00 AM CDT Ordered by an unspecified provider. Other Clinical Staff OTHER * SCAN CORRESP-LABORATORY RESULTS (03/01/2024 1:22 PM CDT) Narrative 03/01/2024 1:22 PM CDT Ordered by an unspecified provider. Other Clinical Staff OTHER * SCAN-COLONOSCOPY (06/28/2023 12:00 AM CONTACT LENS MANUFACTURER) Scanner OTHER * POSTIE THIN PREP PAP SCREEN IMAGED (02/28/2019 9:00 AM CDT) Case Report Gynecologic Cytology Report ? Case: [id number] ? Authorizing Provider: ??Paty Campos ??Collected: ? 02/28/2019 0900 ? M, MD ? Ordering Location: ? [facility] ?Received: ?03/01/2019 1732 ? First Screen: ?Gabi Fitzpatrick ? Specimen: ?POSTIE ThinPrep Vial Screening, Cervical/Vaginal ? 03/12/2019 2:24 PM CDT [facility] INTERPRETATION/ RESULT NEGATIVE FOR INTRAEPITHELIAL LESION OR MALIGNANCY (NIL) (none) 03/12/2019 2:24 PM CDT [facility] IMEN ADEQUACY Satisfactory for evaluation No endocervical component seen 03/12/2019 2:24 PM CDT [facility] ENTRAL LABORATORY HPV REQUEST HPV and PAP 03/12/2019 2:[address] [facility] Date of LMP 02/17/2019 03/12/2019 2:[address] [facility] Last Pap Date 02/09/2014 03/12/2019 2:[address] [facility] Last Pap Result NIL 10/13/201 9 2:24 PM CDT [facility] Automated Review Successful 03/12/2019 2:24 PM CDT [facility] Comment:Specimen processed s uccessfully by automated complaint manager device, ThinPrep Imaging System, [employer] ANCILLARY TESTING POSTIE HPV Ordered, Please see separate report 03/12/2019 2:24 PM CDT [facility] Note The pap test is a [...] lesions. Cytology is screened and interpreted at [facility] - [address], [place] [address] and [facility] - [address]; [place] [address] and [facility] - [address]; [place] [address] and [facility] [address]; [place] [address] 03/12/2019 2:24 PM CDT [facility] Other (Cervical/Vagina l) 02/28/2019 9:00 AM CDT 03/01/2019 5:32 PM CDT Paty Campos MD PATHOLOGY/ CYTOLOGY [facility] [address] [place] [address], [place] from Last 3 Months or Most Recently Relevant to Health Maintenance Advance Directives * Full Code (Latest Code Status on File) Date Activated Date Inactivated Comments 03/11/2024 5:52 AM 03/12/2024 4:35 PM Question Answer Comments Code Status Discussion: Reviewed Preferences Care Teams Collision Repair Technician Relationship Specialty Start Date End Date Jnausz Cheema MD [address] [place] [phone] PCP - General Family Practice 06/17/23
--- OUTSIDE RECORDS SUMMARY | 2024-04-11 09:03 | XMS_ITS ---
Author Organization [facility] Address [address] [place] [address] Care Team Providers Care Net C Developer Name Role Phone Unavailable Unavailable Unavailable Surgery Details Not on file Complications Check Surgery Details section. Procedure Estimated Blood Loss Check Surgery Details section. Procedure Findings Check Surgery Details section. Procedure Specimens Taken Check Surgery Details section.
--- OUTSIDE RECORDS SUMMARY | 2024-04-11 09:03 | XMS_ITS | Clinical Summary ---
Author Organization [facility] Address [address] [place] [address] Care Team Providers Care Glass Presser Name Role Phone Unavailable Primary Care Provider Unavailabl e Source Comments Patient records contain information from all sites at [facility]. For routine questions regarding patient records, call [phone] during business hours, M-F 8:00 AM - 5:00 PM Central Time. Record requests for emergency care only can be directed to [phone] at any time.[facility] Allergies Active Allergy Reactions Criticality Noted Date Comments Azithromycin Rash Low 08/06/2009 Medications balsalazide (COLAZAL) 750 mg capsule Take 750 mg by mouth. 3 Active spironolactone (ALDACTONE) 25 mg tablet 3 Active mometasone (ELOCON) 0.1 % cream Apply 1 Application topically 2 (two) times a day. Apply to right neck and upper back during radiotherapy. 45 g 1 4 Active LORazepam (ATIVAN) 1 mg tablet Take 1 mg by mouth daily as needed for anxiety. 4 Active hyoscyamine (LEVSIN) 0.[address] 0.125 mg under the tongue every 4 (four) hours as needed (colitis flare). 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 Cancer Staging:Pathologic stage from 05/27/2023:Stage 0(pTis (DCIS), cN0, cM0, G1, ER+, ND: Not Assessed, HER2: Not Assessed) - Unsigned 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 Right 06/09/2023 Cancer Staging:Pathologic stage from 05/27/2023:Stage IA(pT3, pN0(sn), cM0, G1, ER+, ND+, HER2-, Oncotype DX score: 10) - Unsigned Pathologic: Unsigned Family History Medical History Relation Name Comments Breast cancer Cousin Maternal Relation Name Status Comments Cousin Social History Tobacco Use Types Packs/Day Years Used Date Smoking Tobacco: Never Smokeless Tobacco: Never Alcohol Use Standard Drinks/Week Comments Not Currently 0 (1 standard drink = 0.6 oz pur e alcohol) [facility] Utilities Answer Date Recorded In the past 12 months has e Int[employer], gas, oil, or water [employer] threatened to shut off services in your [...] your living situation today? I have a [facility] place to live 07/19/2023 Comments Unknown Sex and Gender Information Value Date Recorded Sex Assigned at Female 07/19/2023 9:21 AM BORING MILL SET UP OPERATOR Legal Sex Female 8:20 PM BORING MILL SET UP OPERATOR Gender Identity Female 07/19/2023 9:21 AM BORING MILL SET UP OPERATOR Sexual Orientation Straight 07/19/2023 9: 21 AM BORING MILL SET UP OPERATOR Last Filed Vital Signs Vital Sign Reading Time Taken Comments Blood Pressure 104/57 06/17/2023 9:23 AM BORING MILL SET UP OPERATOR Pulse 83 06/17/2023 9:23 AM BORING MILL SET UP OPERATOR Temperature 36.7 ??C (98.1 ??F) 08/18/2023 3:59 [...] - Moderna risk series) 08/21/2021 07/24/2021, 06/30/2021 Cervical/Vaginal Cancer Screening 02/28/2022 02/28/2019 Depression Screening (Annual PHQ-2) 05/31/2023 Influenza Vaccine (#1) 2024 , 03/07/2020, 03/17/2019, Additional history exists DTaP,Tdap,and Td Vaccines (3 - Td or Tdap) 02/24/2028 02/23/2018, 04/20/2008 Colonoscopy 06/28/2033 06/28/2023 Colorectal Cancer Screening 06/28/2033 Mammogram Discontinued 05/27/2023, 05/01, 05/21/2023, Additional history exists HPV Vaccines Aged Out No longer eligi ble based on patient's age to complete this topic IPV Vaccines Aged Out No longer eligi ble based on patient's age to complete this topic Procedures Procedure Name Priority Date/Time Associated Diagnosis Comments OUTSIDE MG MAMMOGRAM Routine 05/27/2023 1:35 PM BORING MILL SET UP OPERATOR from Last 3 Months or Most Recently Relevant to Health Maintenance Results * MM surgical specimen LT-Outside Mammogram (05/27/2023 1:35 PM BORING MILL SET UP OPERATOR) Narrative [facility] - 06/07/2023 11:49 AM BORING MILL SET UP OPERATOR This order has been created and auto-finalized to support the import of outside images. If available, original interpretation can be found on the Media Tab in Chart Review, in Document Viewer, or as an image in QREADS. If a re-interpretation or overread is required please follow defined workflow. ?? us Provider Not In System IMG BI PROCEDURES Final R esult IIFL NA from Last 3 Months or Most Recently Relevant to Health Maintenance [facility]
--- OUTSIDE RECORDS SUMMARY | 2024-04-11 09:03 | XMS_ITS | Referral Summary ---
Author Organization [facility] Address [address] [place] [address] Care Team Providers Care Fixture Maker Name Role Phone Unavailable Primary Care Provider Unavailabl e Source Comments Patient records contain information from all sites at [facility]. For routine questions regarding patient records, call [phone] during business hours, M-F 8:00 AM - 5:00 PM Central Time. Record requests for emergency care only can be directed to [phone] at any time.[facility] Allergies Active Allergy Reactions Criticality Noted Date [...] 05/27/2023:Stage 0(pTis (DCIS), cN0, cM0, G1, ER+, MO: Not Assessed, HER2: Not Assessed) - Unsigned 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 Right 06/09/2023 Cancer Staging:Pathologic stage from 05/27/2023:Stage IA(pT3, pN0(sn), cM0, G1, ER+, MO+, HER2-, Oncotype DX score: 10) - Unsigned Pathologic: Unsigned Social History Tobacco Use Types Packs/Day Years Used Date Smoking Tobacco: Never Smokeless Tobacco: Never Alcohol Use Standard Drinks/Week Comments Not Currently 0 (1 standard drink = 0.6 oz pur e alcohol) [facility] Utilities Answer Date Recorded In [...] your living situation today? I have a [facility] place to live 07/19/2023 Comments Unknown Sex and Gender Information Value Date Recorded Sex Assigned at Female 07/19/2023 9:21 AM FORESTRY PILOT Legal Sex Female 8:20 PM FORESTRY PILOT Gender Identity Female 07/19/2023 9:21 AM FORESTRY PILOT Sexual Orientation Straight 07/19/2023 9: 21 AM FORESTRY PILOT Last Filed Vital Signs Vital Sign Reading Time Taken Comments Blood Pressure 104/57 06/17/2023 9:23 AM FORESTRY PILOT Pulse 83 06/17/2023 9:23 AM FORESTRY PILOT Temperature 36.7 ??C (98.1 ??F) 08/18/2023 3:59 PM CD T Respiratory Rate - - Oxygen Saturation - - Inhaled Oxygen Concentration - - Weight 56.7 kg (125 lb) 08/18/2023 3:59 PM CDT Height - - Body Mass Index - - Plan of Treatment Not on file Procedures Procedure Name Priority Date/Time Associated Diagnosis Comments OUTSIDE MG MAMMOGRAM Routine 05/27/2023 1:35 PM FORESTRY PILOT from Last 3 Months or Most Recently Relevant to Health Maintenance Results * MM surgical specimen LT-Outside Mammogram (05/27/2023 1:35 PM FORESTRY PILOT) Narrative [facility]IMS - 06/07/2023 11:49 AM FORESTRY PILOT This order has been created and auto-finalized to support the import of outside images. If available, original interpretation can be found on the Media Tab in Chart Review, in Document Viewer, or as an image in [employer]. If a re-interpretation or overread is required please follow defined workflow. ?? us Provider Not In System IMG BI PROCEDURES Final R esult [facility]IM[facility] NA from Last 3 Months or Most Recently Relevant to Health Maintenance Insurance [employer]
--- OUTSIDE RECORDS SUMMARY | 2024-04-11 09:03 | XMS_ITS ---
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 Past Plans No past plan information found. Radiation Treatments * Plan Last Treated On Elapsed Days Fractions Treated Prescribed Fraction Dose Prescribed Total Dose [id number] 08/20/2023 32 8 of 8 220 cGy 1,760 cGy [id number] 08/10/2023 22 17 of 17 220 cGy 3,740 cGy Reference Point Last Treated On Elapsed Days Session Dose Total Dose [id number] 08/20/2023 32 220 cGy 5,500 cGy
[2024-04-12 22:01] LABS: HPV Source Cervical; HPV, High Risk by TMA Not Detected
== END 2024-04-11 09:00 | disposition home or self-care (01) ==
PROVIDERS: PCP Family Medicine; Visit Provider Obstetrics & Gynecology
DX: Z01.419 Encounter for gynecological examination (general) (routine) without abnormal findings (principal); N93.9 Abnormal uterine and vaginal bleeding, unspecified; Z12.4 Encounter for screening for malignant neoplasm of cervix
CPT/HCPCS: 87624; 87625; 88141; 88142

== ENCOUNTER 2024-04-17 15:51 | Outpatient (CLI) | payer OTHER, SELFPAY ==
--- OUTSIDE RECORDS SUMMARY | 2024-04-17 15:53 | XMS_ITS | Clinical Summary ---
Author Organization [facility] Address [place], [place] [address] Care Team Providers Care Auto Garage Mechanic Name Role Phone Janusz Cheema MD Primary Care Provider [phone] Allergies Active Allergy Reactions Criticality Noted Date [...] Tablet 03/12/2024 Active cephalexin (KEFLEX) 500 mg capsuleIndications:NC OPHYLAXIS Take 1 Capsule (500 mg) by [...] Description 03/11/2024 7:40 AM CDT Anesthesia Event [facility] [address] [place] [address] Doe Ho MD Augustin, Joshua Ryan, DO 03/11/2024 7:15 AM CDT - 03/11/2024 11:45 AM CDT Surgery [facility] [address] [place] [address] Andrei Jenkins MD Right latissimus flap breast reconstruction with Tissue microbiology teacher, left tissue microbiology teacher breast reconstruction. 03/11/2024 5:38 AM CDT - 03/12/2024 2:30 PM CDT Hospital Encounter [facility] [address] [place] [address] Andrei Jenkins MD Defect due to mastectomy [...] 72 03/12/2024 7:30 AM CDT Temperature 36.8 C (98.3 F) 03/12/2024 7:30 AM CDT Respiratory Rate 16 03/12/2024 7:30 AM CDT [...] this topic Medical Devices Implanted Type Area Aquatic Laborer Device Identifier Shelf Expiration Date Model / Serial / Lot [place] Cpx 4 Plus Smooth Breast Tissue Meat Sales And Storage Manager 350cc Implanted:Qty: 1 on 03/11/2024 by Andrei Jenkins MD at [facility] Left: Breast [employer] 01/18/2028 SCPX-117MH / [id number] Description:[place] CPX 4 plu s smooth breast tissue microbiology teacher 350CC [employer] Cpx 4 Plus Smooth Breast Tissue Meat Sales And Storage Manager 350cc Implanted:Qty: 1 on 03/11/2024 by Andrei Jenkins MD at [facility] Right: Breast [employer] 01/18/2028 [id number]-117MH / [id number] Description:[place] CPX 4 plu s smooth breast tissue microbiology teacher 350CC Procedures Procedure Name Priority Date/Time Associated Diagnosis Comments ENDOTRACHEAL TUBE Routine 03/11/2024 7:5 7 AM CDT ENDOTRACHEAL TUBE Routine 03/11/2024 7:5 7 AM CDT ENDOTRACHEAL TUBE Routine 03/11/2024 7:5 7 AM CDT RECONSTRUCTION BREAST WITH TISSUE BIOFUELS OPERATIONS MANAGER Elective 03/11/2024 7:20 AM CDT s/p mastectomy RECONSTRUCTION BREAST WITH LATISSIMUS DORSI FLAP WITH TISSUE BIOFUELS OPERATIONS MANAGER Elective 03/11/2024 7:20 AM CDT s/p mastectomy HEMOGLOBIN Preop 03/11/2024 6:41 AM CDT GLUCOSE METER Timed 03/11/2024 6:40 AM CDT URINE Preop 03/11/2024 6:10 AM CDT SCAN-CARDIAC STRIP 03/11/2024 12 :00 AM CDT SCAN CORRESP-LABORATORY RESULTS 03/01/2024 1:22 PM CDT COLONOSCOPY SCREENING Routine 06/28/2023 8:05 AM STAFF ANALYST Ulcerative colitis without complications, unspecified location (HC) Bloating Fatigue, unspecified type Family history of celiac disease LAST CLEANER THIN PREP PAP SCREEN IMAGED Routine 02/28/2019 9:00 AM CDT from Last 3 Months or Most Recently Relevant to Health Maintenance Results * HCHG TUBE PR1, HCHG STYLET PR1, HCHG MOUTHPIECE PR1 (03/11/2024 7:57 AM CDT) Narrative Adalberto Graham, COAT EXAMINER - 03/11/2024 7:57 AM CDT Adalberto Graham Vargas, COAT EXAMINER 03/11/2024 7:57 AM Procedure: ETT Patient location during procedure: [...] - 16.0 g/dL 03/11/2024 6:55 AM CDT [facility] MCV 90 80 - 100 fL 03/11/2024 6:55 AM CDT [facility] Blood BLOOD SPECIMEN / Unknown Venipuncture / Unknown 03/11/2024 6:41 AM CDT 03/11/2024 6:49 AM CDT Byron Langley DO HEMATOLOGY [facility] [address] [place] [address], * GLUCOSE METER (03/11/2024 6:40 AM CDT) GLUCOSE METER 98 65 - 100 mg/dL 03/11/2024 6:45 AM CDT [facility] Blood BLOOD SPECIMEN / Unknown 03/11/2024 6:40 AM CDT 03/11/2024 6:45 AM CDT Andrei Jenkins MD CHEMISTRY Performing Organization Address City/[facility]/ZIP Co de Phone Number [facility] [address] [place] [address], * Urine (03/11/2024 6:10 AM CDT) ,URIN E Negative Negative 03/11/2024 6:28 AM CDT [facility] Urine URINE SPECIMEN / Unknown Non-Blood / Unknown 03/11/2024 6:10 AM CDT 03/11/2024 6:19 AM CDT Andrei Jenkins MD URINE Performing Organization Address City/[facility] Co de Phone Number [facility] [address] [place] [address], * SCAN-CARDIAC STRIP (03/11/2024 12:00 AM CDT) Narrative 03/11/2024 12:00 AM CDT Ordered by an unspecified provider. Other Clinical Staff OTHER * SCAN CORRESP-LABORATORY RESULTS (03/01/2024 1:22 PM CDT) Narrative 03/01/2024 1:22 PM CDT Ordered by an unspecified provider. Other Clinical Staff OTHER * SCAN-COLONOSCOPY (06/28/2023 12:00 AM STAFF ANALYST) Scanner OTHER * LAST CLEANER THIN PREP PAP SCREEN IMAGED (02/28/2019 9:00 AM CDT) Case Report Gynecologic Cytology Report Case: [id number] Authorizing Provider: Paty Campos Collected: 02/28/2019 0900 MD Karla Ordering Location: [facility] Received: 03/01/2019 1732 First Screen: Gabi Fitzpatrick Specimen: LAST CLEANER ThinPrep Vial Screening, Cervical/Vaginal 03/12/2019 2:24 PM CDT [facility] INTERPRETATION/ RESULT NEGATIVE FOR INTRAEPITHELIAL LESION OR MALIGNANCY (NIL) (none) 03/12/2019 2:24 PM CDT [facility] IMEN ADEQUACY Satisfactory for evaluation No endocervical component seen 03/12/2019 2:24 PM CDT [facility] HPV REQUEST HPV and PAP 03/12/2019 2:24 PM CDT [facility] Date of LMP 02/17/2019 03/12/2019 2:24 PM CDT [facility] Last Pap Date 02/09/2014 03/12/2019 2:24 PM CDT [facility] Last Pap Result NIL 9 2:24 PM CDT [facility] Automated Review Successful 03/12/2019 2:24 PM CDT [facility] Comment:Specimen processed s uccessfully by automated esl teacher device, BangeePrep Imaging System, [employer] ANCILLARY TESTING LAST CLEANER HPV Ordered, Please see separate report 03/12/2019 2:24 PM CDT [facility] Note The pap test is a screening technique, not a diagnostic procedure. It is used primarily to screen for squamous cancers and precursor lesions. Published studies have shown that it is subject to both false negative and false positive results. The pap test should not be used as the sole means to diagnose or exclude pre-malignant and malignant lesions. Cytology is screened and interpreted at [facility] - [address], [place] [address] and [facility] - [address] [place] [address]; [place] [address] [address] [facility] - [address]; [place] [address] and [facility] [address]; [place] [address] 03/12/2019 2:24 PM CDT [facility] Other (Cervical/Vagina l) 02/28/2019 9:00 AM CDT 03/01/2019 5:32 PM CDT Paty Campos MD PATHOLOGY/ CYTOLOGY [facility] [address] [place] [address], [place] from Last 3 Months or Most Recently Relevant to Health Maintenance Advance Directives * Full Code (Latest Code Status on File) Date Activated Date Inactivated Comments 03/11/2024 5:52 AM 03/12/2024 4:35 PM Question Answer Comments Code Status Discussion: Reviewed Preferences Care Teams Auto Garage Mechanic Relationship Specialty Start Date End Date Janusz Cheema MD [address] [place] [id number] PCP - General Family Practice 06/17/23
--- OUTSIDE RECORDS SUMMARY | 2024-04-17 15:53 | XMS_ITS ---
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 Past Plans No past plan information found. Radiation Treatments * Plan Last Treated On Elapsed Days Fractions Treated Prescribed Fraction Dose Prescribed Total Dose [id number] 08/20/2023 32 8 of 8 220 cGy 1,760 cGy [id number] 08/10/2023 22 17 of 17 220 cGy 3,740 cGy Reference Point Last Treated On Elapsed Days Session Dose Total Dose [id number] 08/20/2023 32 220 cGy 5,500 cGy
--- OUTSIDE RECORDS SUMMARY | 2024-04-17 15:53 | XMS_ITS | Clinical Summary ---
Author Organization [facility] Address [address] [place] [address] Care Team Providers Care Transonic Engineer Name Role Phone Unavailable Primary Care Provider Unavailabl e Source Comments Patient records contain information from all sites at [facility]. For routine questions regarding patient records, call [phone] during business hours, M-F 8:00 AM - 5:00 PM Central Time. Record requests for emergency care only can be directed to [phone] at any time.[facility] Allergies Active Allergy Reactions Criticality Noted Date [...] 05/27/2023:Stage 0(pTis (DCIS), cN0, cM0, G1, ER+, [place]: Not Assessed, HER2: Not Assessed) - Unsigned 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 Right 06/09/2023 Cancer Staging:Pathologic stage from 05/27/2023:Stage IA(pT3, pN0(sn), cM0, G1, ER+, [place]+, HER2-, Oncotype DX score: 10) - Unsigned Pathologic: Unsigned Family History Medical History Relation Name Comments Breast cancer Cousin Maternal Relation Name Status Comments Cousin Social History Tobacco Use Types Packs/Day Years Used Date Smoking Tobacco: Never Smokeless Tobacco: Never Alcohol Use Standard Drinks/Week Comments Not Currently 0 (1 standard drink = 0.6 oz pur e alcohol) [facility] Utilities Answer Date Recorded In the past 12 months has e [employer], gas, oil, or water [employer] threatened to shut off services in your [...] your living situation today? I have a [facility] place to live 07/19/2023 Comments Unknown Sex and Gender Information Value Date Recorded Sex Assigned at Female 07/19/2023 9:21 AM AUTO ENGINE MECHANIC Legal Sex Female 8:20 PM AUTO ENGINE MECHANIC Gender Identity Female 07/19/2023 9:21 AM AUTO ENGINE MECHANIC Sexual Orientation Straight 07/19/2023 9: 21 AM AUTO ENGINE MECHANIC Last Filed Vital Signs Vital Sign Reading Time Taken Comments Blood Pressure 104/57 06/17/2023 9:23 AM AUTO ENGINE MECHANIC Pulse 83 06/17/2023 9:23 AM AUTO ENGINE MECHANIC Temperature 36.7 C (98.1 F) 08/18/2023 3:59 PM CDT Respiratory Rate - - Oxygen [...] Colorectal Cancer Screening 06/28/2033 Mammogram Discontinued 05/27/2023, 12/12/2022, 05/21/2023, Additional history exists HPV Vaccines Aged Out No longer eligi ble based on patient's age to complete this topic IPV Vaccines Aged Out No longer eligi ble based on patient's age to complete this topic Procedures Procedure Name Priority Date/Time Associated Diagnosis Comments OUTSIDE MG MAMMOGRAM Routine 05/27/2023 1:35 PM AUTO ENGINE MECHANIC from Last 3 Months or Most Recently Relevant to Health Maintenance Results * MM surgical specimen LT-Outside Mammogram (05/27/2023 1:35 PM AUTO ENGINE MECHANIC) Narrative [facility] - 06/07/2023 11:49 AM AUTO ENGINE MECHANIC This order has been created and auto-finalized to support the import of outside images. If available, original interpretation can be found on the Media Tab in Chart Review, in Document Viewer, or as an image in QREADS. If a re-interpretation or overread is required please follow defined workflow. us Provider Not In System IMG BI PROCEDURES Final R esult IIAZ NA from Last 3 Months or Most Recently Relevant to Health Maintenance Insurance [employer]
--- OUTSIDE RECORDS SUMMARY | 2024-04-17 15:53 | XMS_ITS | Referral Summary ---
Author Organization [facility] Address [address] [place] [address] Care Team Providers Care Forest Examiner Name Role Phone Unavailable Primary Care Provider Unavailabl e Source Comments Patient records contain information from all sites at [facility]. For routine questions regarding patient records, call [phone] during business hours, M-F 8:00 AM - 5:00 PM Central Time. Record requests for emergency care only can be directed to [phone] at any time.[facility] Allergies Active Allergy Reactions Criticality Noted [...] 0.6 oz pur e alcohol) [facility] Utilities Answer Date Recorded In the past [...] your living situation today? I have a [facility] place to live 07/19/2023 Comments Unknown Sex and Gender Information Value Date Recorded Sex Assigned at Female 07/19/2023 9:21 AM PIER HAND HELPER Legal Sex Female 8:20 PM PIER HAND HELPER Gender Identity Female 07/19/2023 9:21 AM PIER HAND HELPER Sexual Orientation Straight 07/19/2023 9: 21 AM PIER HAND HELPER Last Filed Vital Signs Vital Sign Reading Time Taken Comments Blood Pressure 104/57 06/17/2023 9:23 AM PIER HAND HELPER Pulse 83 06/17/2023 9:23 AM PIER HAND HELPER Temperature 36.7 C (98.1 F) 08/18/2023 3:59 PM CDT Respiratory Rate - - Oxygen Saturation - - Inhaled Oxygen Concentration - - Weight 56.7 kg (125 lb) 08/18/2023 3:59 PM CDT Height - - Body Mass Index - - Plan of Treatment Not on file Procedures Procedure Name Priority Date/Time Associated Diagnosis Comments OUTSIDE MG MAMMOGRAM Routine 05/27/2023 1:35 PM PIER HAND HELPER from Last 3 Months or Most Recently Relevant to Health Maintenance Results * MM surgical specimen LT-Outside Mammogram (05/27/2023 1:35 PM PIER HAND HELPER) Narrative [facility] - 06/07/2023 11:49 AM PIER HAND HELPER This order has been created and auto-finalized [...] Most Recently Relevant to Health Maintenance Insurance [employer]
--- OUTSIDE RECORDS SUMMARY | 2024-04-17 15:53 | XMS_ITS ---
Author Organization [facility] Address [address] [place] [address] Care Team Providers Care Parking Lot Laborer Name Role Phone Unavailable Unavailable Unavailable Surgery Details Not on file Complications Check Surgery Details section. Procedure Estimated Blood Loss Check Surgery Details section. Procedure Findings Check Surgery Details section. Procedure Specimens Taken Check Surgery Details section.
--- NOTE | 2024-04-17 16:00 | CRLHL7_ITS ---
For Patients: As a result of the Century Cures Act, medical imaging exams and procedure reports are released immediately into your electronic medical record. You may view this report before your referring provider. If you have questions, please contact your health care provider. INDICATION: Abnormal uterine and vaginal bleeding COMPARISON: none TECHNIQUE: 2D portillo scale and color Doppler images were acquired of the pelvis using a transabdominal and transvaginal approach. FINDINGS: Uterus measures 9.0 cm in length by 4.4 cm in AP diameter by 5.3 cm in transverse dimension. The endometrial lining measures 5 mm in composite thickness. Endometrial calcifications are present. The right ovary measures 2.2 x 1.3 x 1.3 cm in size and the left ovary measures 2.8 x 2.0 x 2.1 cm. The ovaries demonstrate normal arterial and venous blood flow on color Doppler analysis. There are no suspicious fluid collections within the cul-de-sac. Left ovarian cyst is present which measures 1.8 cm. No internal blood flow or solid component. A thin internal septation is noted. IMPRESSION: Endometrial calcifications. Endometrial thickness 5 millimeters. Dictated by Ang Toledo MD @ 04/18/2024 10:19:03 AM (Electronically Signed)
== END 2024-04-17 15:52 | disposition home or self-care (01) ==
LOC: US 15:51
PROVIDERS: PCP Family Medicine; Visit Provider Obstetrics & Gynecology
DX: N93.9 Abnormal uterine and vaginal bleeding, unspecified (principal); R93.89 Abnormal findings on diagnostic imaging of other specified body structures
CPT/HCPCS: 76830; 76856

== ENCOUNTER 2024-05-16 15:00 | Outpatient (RCR) | payer OTHER, SELFPAY | END 2024-05-16 16:00 | disposition home or self-care (01) | PROVIDERS: Visit Provider Surgery | DX: C50.911 Malignant neoplasm of unspecified site of right female breast (principal); Z51.89 Encounter for other specified aftercare | CPT/HCPCS: 97110; 97140; 97161; 97164; 97165; 97530; 97535 ==

== ENCOUNTER 2024-06-06 15:00 | Outpatient (RCR) | payer OTHER, SELFPAY ==
--- NOTE | 2024-03-09 14:08 | ONC.NURNOTE ---
Addendum entered by Mariann Aldridge 03/10/24 14:57: Correction: surgery moved to 03/25 Original Note: Patient called to report that her breast reconstruction surgery was rescheduled from 03/06 to 03/28 due to the IV fluid shortage. Patient verbalizes understanding to continue holding Tamoxifen as previously directed, 3 weeks prior and 3 weeks post. Patient's appointments with Dr. Ji rescheduled accordingly with labs 04/07 and follow up on 04/11. Patient verbalizes understanding.
--- NOTE | 2024-03-14 13:22 | URNOTE ---
?Request received for authorization for Zoladex(Goserelin ([id number]). Prior authorization is not required per [facility] Rep. Radha Tran. Ref#[id number].
[2024-04-07 12:53] LABS: HCG Quantitative* < 2.39 mIU/mL
[2024-04-08 20:56] LABS: Estradiol Premenol Female 21 pg/mL
[2024-04-09 15:00] LABS: Follicle Stimulating Hormone 49.5 IU/L
[2024-04-11] MEDS: GOSERELIN ACETATE 3.6 MG IMPLANT SUBCUT (10:49)
[2024-05-09] MEDS: GOSERELIN ACETATE 3.6 MG IMPLANT SUBCUT (15:28)
[2024-05-09 15:35] VITALS: BP 100/67; PULSE 67; RESP 16; TEMP 36.8; O2SAT 98
[2024-06-06] MEDS: GOSERELIN ACETATE 3.6 MG IMPLANT SUBCUT (15:13)
== END 2024-07-01 23:59 | disposition home or self-care (01) ==
LOC: CCIC 15:00
PROVIDERS: PCP Family Medicine; Referring Provider Family Medicine; Visit Provider Internal Medicine Hematology & Oncology
DX: C50.911 Malignant neoplasm of unspecified site of right female breast (principal); Z17.0 Estrogen receptor positive status [ER+]
CPT/HCPCS: 36415; 82670; 83001; 84702; 96401; 96402; 99214; G0463; J9202

== ENCOUNTER 2024-09-11 08:44 | Outpatient (CLI) | payer OTHER, SELFPAY | END 2024-09-11 08:45 | disposition home or self-care (01) | PROVIDERS: PCP Family Medicine; Visit Provider Family Medicine | DX: Z13.228 Encounter for screening for other metabolic disorders (principal); Z13.6 Encounter for screening for cardiovascular disorders; Z13.29 Encounter for screening for other suspected endocrine disorder | CPT/HCPCS: 80053; 80061; 84443 ==

== ENCOUNTER 2024-10-11 14:30 | Outpatient (RCR) | payer OTHER, SELFPAY ==
[2024-07-05] MEDS: GOSERELIN ACETATE 3.6 MG IMPLANT SUBCUT (15:35)
[2024-07-05 16:22] LABS: Iron* 88 ug/dL (37-170)
[2024-07-05 16:32] LABS: Percent Iron Saturation 27 % (20-50); Total Iron Binding Capacity 332 ug/dL (265-497)
[2024-08-03 15:08] VITALS: BP 117/73; PULSE 89; RESP 16; TEMP 36.3; O2SAT 99
[2024-08-03] MEDS: GOSERELIN ACETATE 3.6 MG IMPLANT SUBCUT (15:24)
[2024-08-31 15:13] VITALS: BP 97/62; PULSE 79; RESP 18; TEMP 36.3; O2SAT 100
[2024-08-31 15:36] LABS: Ur HCG Qualitative* Negative (Negative)
[2024-08-31] MEDS: GOSERELIN ACETATE 3.6 MG IMPLANT SUBCUT (15:53)
[2024-09-26 16:49] LABS: HCG Quantitative* < 2.39 mIU/mL
[2024-09-28 15:11] VITALS: BP 121/79; PULSE 89; RESP 20; TEMP 36.9; O2SAT 100
[2024-09-28] MEDS: GOSERELIN ACETATE 3.6 MG IMPLANT SUBCUT (15:34)
== END 2025-01-01 23:59 | disposition home or self-care (01) ==
LOC: CCIC 14:30
PROVIDERS: Clinical Nurse Specialist; PCP Family Medicine; Referring Provider Family Medicine; Visit Provider Internal Medicine Hematology & Oncology
DX: C50.911 Malignant neoplasm of unspecified site of right female breast (principal); Z17.0 Estrogen receptor positive status [ER+]; M85.80 Other specified disorders of bone density and structure, unspecified site; Z90.13 Acquired absence of bilateral breasts and nipples; K52.9 Noninfective gastroenteritis and colitis, unspecified
CPT/HCPCS: 36415; 81025; 82728; 83540; 83550; 84702; 96402; 99215; G0463; J9202

== ENCOUNTER 2025-01-30 13:14 | Outpatient (CLI) | payer OTHER, SELFPAY | END 2025-01-30 13:15 | disposition home or self-care (01) | LOC: NFLDREF 13:15 | PROVIDERS: PCP Family Medicine; Visit Provider Family Medicine | DX: Z01.818 Encounter for other preprocedural examination (principal) | CPT/HCPCS: 80048 ==